=== PATIENT | female | born 1970 | race Caucasian/White ===

== ENCOUNTER 2020-05-08 12:44 | Observation (INO) | payer BC, OTHER ==
[~2020-05-08] VITALS: Ht 152.4 cm; Wt 71.2 kg
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
[2020-05-08] MEDS ORDERED: GLIPIZIDE5 MG PO (14:07)
[2020-05-08] MEDS ORDERED: SERTRALINE HCL100 MG PO (14:07)
[2020-05-08] MEDS ORDERED: BUSPIRONE HCL15 MG PO (14:07)
[2020-05-08] MEDS ORDERED: JANUVIA100 MG PO (14:07)
[2020-05-08] MEDS ORDERED: PROPRANOLOL HCL80 M1 (14:07)
[2020-05-08] MEDS ORDERED: ASPIRIN325 MG PO (14:07)
[2020-05-08] MEDS ORDERED: OMEPRAZOLE40 MG (14:07)
[2020-05-08] MEDS ORDERED: MULTI-VITAMIN1 EACH (14:07)
[2020-05-08] MEDS ORDERED: SODIUM CHLORIDE 0.9% 500ML 500 ML IV ONE (14:30)
[2020-05-08] MEDS ORDERED: IOPAMIDOL 370 MG/ML 200 ML INFUS..BTL INJ ONE (14:53)
[2020-05-08] MEDS ORDERED: SODIUM CHLORIDE 0.9% 100 ML ONE (14:53)
--- NOTE | 2020-05-08 15:43 | Diagnostic Imaging Report ---
EXAM: CT Chest WITH contrast- Pulmonary Embolism Protocol INDICATION: Shortness of breath and chest pain for several days COMPARISON: None TECHNIQUE: Chest was scanned utilizing a multidetector helical scanner from the lung apex through the level of the diaphragm after administration of IV contrast. Thin section reconstructions were obtained with special concentration on the pulmonary arteries. Coronal and sagittal reformations were obtained. Pulmonary embolism protocol was performed. IV CONTRAST: 100 cc of Isovue 370 RADIATION DOSE: Total DLP: 487 mGy*cm Dose modulation, iterative reconstruction, and/or weight based adjustment of the mA/kV was utilized to reduce the radiation dose to as low as reasonably achievable. COMPLICATIONS: None FINDINGS: LINES/ TUBES: None. PULMONARY ARTERIES: No filling defect is identified within the pulmonary arteries to the proximal subsegmental level. Main pulmonary artery measures 2.2 in diameter normal. LUNGS AND AIRWAYS: Negative for focal consolidation. No suspicious pulmonary nodule or mass is identified. Airways are normal. PLEURA: The pleural spaces are clear. HEART AND MEDIASTINUM: The thyroid gland is normal. No mediastinal, hilar or axillary lymphadenopathy. The heart is normal in size.. There is no pericardial effusion. Negative for right ventricular enlargement or bowing of the intervertebral interseptum. Thoracic aorta is of normal caliber. UPPER ABDOMEN: Gallbladder is surgically absent. BONES: Negative for acute osseous abnormality. Probable bone island is noted within a mid thoracic vertebral body. Moderate multilevel degenerative changes are noted. SOFT TISSUES: Unremarkable. IMPRESSION: 1. Negative for pulmonary or secondary signs of right heart strain. 2. Lungs are clear. Signed by: Deon Andino MD on 05/08/2020 3:40 PM
[2020-05-08] MEDS ORDERED: SODIUM CHLORIDE FLUSH 10 ML SYR INJ PRN (17:30)
[2020-05-08] MEDS ORDERED: ONDANSETRON HCL INJ 2MG/ML 2ML 2 MG/ML VIAL IV PRN (17:30)
[2020-05-08] MEDS ORDERED: ASPIRIN 81 MG CHEW TAB PO ONE (17:30)
--- OUTSIDE RECORDS SUMMARY | 2020-05-08 17:38 | XMS REPORT | Clinical Summary ---
Author Author [facility] Organization [facility] Address Unknown Phone Unavailable Care Team Providers Care Five Roll Refiner Batch Mixer Name Role Phone Lynnette Servin MD PCP Allergies Comments Active Allergy Reactions Severity Noted Date Severe diarrhea Amoxicillin-Pot Diarrhea 03/05/2019 Clavulanate Tongue itching Sulfamethoxazole-Trimetho Other (See 03/05/2019 prim Comments) Chest pain Morphine Shortness Of High 03/05/2019 Breath, Other (See Comments) Medications End Date Status Medication Sig Dispensed Refills Start Date Active atorvastatin (LIPITOR) 40 Take 40 mg by 0 MG tablet mouth daily. Active busPIRone (BUSPAR) 10 MG Take 10 mg by 0 tablet mouth 2 (two) times daily. Active estradiol (ESTRACE) 0.01 Place 2 g 0 % (0.1 mg/gram) vaginal vaginally cream daily. Active glipiZIDE (GLUCOTROL) 10 Take 10 mg by 0 MG tablet mouth 2 (two) times daily before meals. Active insulin detemir U-100 Inject 15 0 (LEVEMIR) 100 unit/mL (3 Units mL) InPn injection subcutaneousl y nightly. Active naltrexone (DEPADE) 50 mg Take 50 mg by 0 tablet mouth daily. Active omeprazole (PRILOSEC) 40 Take 40 mg by 0 MG capsule mouth 2 (two) times daily. Active ondansetron (ZOFRAN) 4 MG Take 4 mg by 0 tablet mouth 2 (two) times daily as needed for Nausea. Active pioglitazone (ACTOS) 15 Take 15 mg by 0 MG tablet mouth daily. Active propranolol (INDERAL LA) Take 80 mg by 0 80 MG 24 hr capsule mouth daily. Active sertraline (ZOLOFT) 50 MG Take 150 mg 0 tablet by mouth daily . Active sucralfate (CARAFATE) 1 Take 1 g by 0 gram tablet mouth as needed. Active traZODone (DESYREL) 100 Take 100 mg 0 MG tablet by mouth nightly. Active valACYclovir (VALTREX) Take 1,000 mg 0 1000 MG tablet by mouth as needed. Active LORazepam (ATIVAN) 0.5 MG Take 0.5 mg 0 tablet by mouth every 8 (eight) hours as needed for Anxiety. Active Problems Problem Noted Date Chest pain, unspecified type 08/23/2019 Encounters Care Team Description Date Type Specialty Karli Sandoval, INBOUND CALL CENTER AGENT, RPSGT 12/03/2019 Outside Orders Lynnette Servin MD Daytime somnolence 11/21/2019 Hospital Encounter 08/23/2019 Orders Only General Internal Me hector Mejia, MD Florencio Nassar Kimberly Ann, MD Chest pain, unspecified type (Primary Dx ); SOB (shortness of breath) 08/22/2019 Emergency Cardiology - 08/23/2019 08/22/2019 Travel Lynnette Servin MD Dysphagia, unspecified type (Primary Dx) 08/03/2019 Outside Orders Central Scheduling Lynnette Servin MD 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 07/02/2019 Hospital Radiology Encounter Lynnette Servin MD 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 Last Filed Vital Signs Time Taken Vital Sign Reading 08/23/2019 4:00 PM CAR REPAIR SUPERVISOR Blood Pressure 109/65 08/23/2019 4:00 PM CAR REPAIR SUPERVISOR Pulse 96 08/23/2019 4:00 PM CAR REPAIR SUPERVISOR Temperature 36.5 C (97.7 F) 08/23/2019 4:00 PM CAR REPAIR SUPERVISOR Respiratory Rate 18 08/23/2019 4:00 PM CAR REPAIR SUPERVISOR Oxygen Saturation 95% - Inhaled Oxygen - Concentration 08/23/2019 8:13 AM CAR REPAIR SUPERVISOR Weight 71.4 kg (157 lb 6.5 oz) 08/22/2019 8:37 PM CAR REPAIR SUPERVISOR Height 152.4 cm (5') 08/23/2019 8:13 AM CAR REPAIR SUPERVISOR Body Mass Index 30.74 Plan of Treatment Health Maintenance Due Date Last Done Comments BREAST CANCER SCREENING 1970 COLON CANCER SCREENING 1970 COLONOSCOPY CERVICAL CANCER SCREENING 1989 PAP ONLY (Age 21-65) INFLUENZA VACCINE (#1) 2020 06/10/2018 Procedures Comments Procedure Name Priority Date/Time Associated Diag nosis POLYSOMNOGRAPHY REPORT - 12/11/2019 SCAN 12:00 PM CDT UNATTENDED SLEEP STUDY Routine 11/21/2019 Daytime somnolence W/ANALYSIS 10:57 AM CAR REPAIR SUPERVISOR REPORT OF PROCEDURE - 08/24/2019 ENDOSCOPY SCAN 12:00 PM CAR REPAIR SUPERVISOR RHYTHM STRIP - SCAN 08/24/2019 12:00 PM CAR REPAIR SUPERVISOR REPORT OF PROCEDURE - 08/24/2019 ENDOSCOPY SCAN 11:20 AM CAR REPAIR SUPERVISOR ECHOCARDIOGRAM REPORT - 08/23/2019 SCAN 9:10 PM CAR REPAIR SUPERVISOR POCT-GLUCOSE METER Routine 08/23/2019 6:11 PM CAR REPAIR SUPERVISOR POCT-GLUCOSE METER Routine 08/23/2019 2:01 PM CAR REPAIR SUPERVISOR 2D ECHO W/ DOPPLER Routine 08/23/2019 (CW/PW/COLOR) 12:29 PM CAR REPAIR SUPERVISOR NM MYOCARDIAL PERFUSION Routine 08/23/2019 SPECT, PHARM(LEXISCAN) 12:21 PM CAR REPAIR SUPERVISOR TREADMILL Routine 08/23/2019 TOLERANCE(NON-NUCLEAR 9:49 AM CAR REPAIR SUPERVISOR TREADMILL) ECG 12-LEAD Routine 08/23/2019 9:34 AM CAR REPAIR SUPERVISOR Procedure Note - Interface, External Ris In - 08/23/2019 10:11 AM CAR REPAIR SUPERVISOR Ventricula r Rate 71 BPM Atrial Rate 71 BPM P-R Interval 160 ms QRS Duration 72 ms Q-T Interval 428 ms QTC Calculatio n(Bazett) 465 ms P [place] 54 degrees R [place] 9 degrees T [place] 41 degrees Normal sinus rhythm Low voltage QRS Cannot rule out Anterior infarct , age undetermin ed Abnormal ECG ECG 12-LEAD STAT 08/23/2019 9:34 AM CAR REPAIR SUPERVISOR POCT-GLUCOSE METER Routine 08/23/2019 8:10 AM CAR REPAIR SUPERVISOR TROPONIN I STAT 08/23/2019 1:36 AM CAR REPAIR SUPERVISOR POCT-GLUCOSE METER Routine 08/22/2019 11:27 [address] CHEST PE TEST DESIGN STAT 08/22/2019 6:21 PM CAR REPAIR SUPERVISOR ED ECG INTERPRETATION Routine 08/22/2019 5:00 PM CAR REPAIR SUPERVISOR CBC W/PLT COUNT & AUTO STAT 08/22/2019 DIFFERENTIAL 4:22 PM CAR REPAIR SUPERVISOR B-TYPE NATRIURETIC FACTOR STAT 08/22/2019 (BNP) 4:22 PM CAR REPAIR SUPERVISOR TROPONIN I STAT 08/22/2019 4:22 PM CAR REPAIR SUPERVISOR BASIC METABOLIC PANEL (7) STAT 08/22/2019 4:22 PM CAR REPAIR SUPERVISOR CBC W/PLT COUNT & AUTO STAT 08/22/2019 DIFFERENTIAL 4:22 PM CAR REPAIR SUPERVISOR POCT-GLUCOSE METER Routine 08/22/2019 4:20 PM CAR REPAIR SUPERVISOR ECG 12-LEAD Routine 08/22/2019 4:12 PM CAR REPAIR SUPERVISOR XR LUMBAR SPINE COMP WITH Routine 07/02/2019 Wind Energy Technician franklyn midline low back FLEX & EXT 3:18 PM CDT pain with bilateral sciatica XR SACRUM & COCCYX MIN 3 Routine 07/02/2019 Chron ic midline low back VIEWS 3:18 PM CDT pain with bilateral sciatica after 05/08/2019 Results * POLYSOMNOGRAPHY REPORT - SCAN (12/11/2019 12:00 PM CDT) Narrative Performed At This result has an attachment that is n ot available. * EKG-SCANNED (08/24/2019 12:00 PM CAR REPAIR SUPERVISOR) Only the most recent of 2 results within the time period is included. Narrative Performed At This result has an attachment that is n ot available. * RHYTHM STRIP - SCAN (08/24/2019 12:00 PM CAR REPAIR SUPERVISOR) Narrative Performed At This result has an attachment that is n ot available. * ECHOCARDIOGRAM REPORT - SCAN (08/23/2019 9:10 PM CAR REPAIR SUPERVISOR) Narrative Performed At This result has an attachment that is n ot available. * POC-Glucose meter (08/23/2019 6:11 PM CAR REPAIR SUPERVISOR) Only the most recent of 5 results within the time period is included. POC-Glucose Meter 287 (H)Comment: : Notified 70 - 110 mg/dL [facility] RN/MD: TESTED AT [address], [facility]: Lithograph Printer/Manager Talent Acquisition ID = [id number] for NIRMAL-SHOCK, TEASIA Specimen Blood Performing Organization Address City/State[facility] Ph one Number [place] [address] [facility] * 2D Echo W/Doppler(CW/PW/Color) (08/23/2019 12:29 PM CAR REPAIR SUPERVISOR) Ejection Fraction [facility] ECHO [facility]ART[facility] Specimen Narrative Performed At Transthoracic Echocardiography Report (TTE) [facility] ECH O HEARTLAB Demographics [facility] Patient NameSUZIE CARLOS Date of Study08/23/2019 VIRGIL Gender Female Visit [id number] Race Room [id number] Number Date of 1970 Physician VIRIDIANA Fuentes Age 48 year(s) SonographDavid Kraft [facility] Membership Manager Lexa Hamilton MD RDCS Physician Procedure Type of Study TTE procedure:2DECHO W DO PPLER(CW/PW/COLOR) (Routine) Indications:Shortness of breath. Clinical History HX PE, DM, TIA (2019), CAD Contrast Medium: Definity. Height: 60 inches Weight: 73.03 kg (161 lbs) BSA: 1.7 m^2 BMI: 31.44 kg/m^2 HR: 80 bpm BP: 124/69 mmHg Summary 1. The left ventricle is chamber size ( by vol index) is normal. No evidence of LV hypertrophy. All of the LV segments are hyperkinetic. LVEF by Gonsalez's method of disk assessment is increased (>70%). Grade 1 diastolic dysfunction (impaired relaxat ion and low-normal LA pressure). LA size is normal (16-34 ml/m2) . 2. The right ventricular chamber size a nd systolic function are within normal limits. RA size is normal. Estim ated peak systolic PA pressure is 20-25 mmHg . 3. No significant valvular abnormalitie s. Previous Study No prior studies available for comparis on. Signature Findings Technical Quality: Technically adequate exam. Left Ventricle LV endoc ardium is adequately visualized with IV ultrasound enhancing agent. The left ventricle is chamber size (by vol index) is normal (female - LVED vol - 29-61ml/m2). No evidence of LV hypertrophy. All of the LV segments are hyperkinetic . Global LV systolic function hyperdynamic . LVEF by Gonsalez's method of disk assessment is increased (>70%) . Increased (cardiac index 3.5-4.0 L/min/m2) cardiac output state at rest is noted. Grade 1 diastolic dysfunction (impaired relaxation and low-normal LA pressure). Left AtriumLA s ize is normal (16-34 ml/m2) . Right VentricleThe righ t ventricular chamber size and systolic function are within normal limits. Right Atrium RA siz e is normal. Aortic Valve Normal AoV structure and function. Mitral Valve Normal MV structure and function. Trace mitral regurgitation. Tricuspid ValveTV struc ture is normal. A trace of tricuspid regurgitation. Estimated peak systolic PA pressure is 20-25 mmHg . Peak systolic pressure may be underestimated; partial TR signal. Pulmonic Valve Normal P V structure and function by limited views and Doppler. Aorta Aortic root size (SInus of Valsalva diameter) is normal . PericardiumNo p ericardial effusion is visualized. IVC/SVC/PA/PV/PleuralThe estimated RA pressure by IVC dynamics 0-5mmHg . Chambers/Structures Left Atrium LA Volume: 30.08 ml LA Area: 12.42 cm^2 LA Vol. Index: 18 ml/m^2 Left Ventricle LVIDd: 4.59 cm LV Septum Diastolic: 0.67 cm LV PW Diastolic: 0.88 cm LVEDV Gonsalez's:63.26 ml LV Length: 6.64 cm LVESV Gonsalez's:15.57 ml LVEF Gonsalez's: 75.4 % LVEDVI: 37 ml/m^2 LVESVI: 9 ml/m^2 LVOT Diameter: 1.95 cm Aorta Ao Root S of Mariel.: 2.79 cm Doppler/Quantitative Measurements Mitral Valve MV Peak E-Wave: 0.65 m/s MV Peak A-Wave: 0.78 m/s E/A Ratio: 0.83 Peak Gradient: 1.67 mmHg Deceleration Time: 149.3 msec MV Efrain. Peak: Tissue Doppler E' Lateral Velocity: 0.09 m/s E/E': 7.08 Aortic Valve Peak Velocity: 1.38 m/s Mean Velocity: 0.97 m/s Peak Gradient: 7.6 mmHg Mean Gradient: 4.14 mmHg AV Area (continuity): 3 cm^2 AV VTI: 25.33 cm AV DVI: 1 LVOT Peak Velocity: 1.29 m/s Peak Gradient: 6.61 mmHg Mean Velocity: 0.89 m/s Mean Gradient: 3.53 mmHg LVOT Diameter: 1.95 cm LVOT VTI: 25.44 cm LVOT Area: 2.99 cm^2 LVOT SV:75.94 ml LVOT CO: 6.07 l/min LVOT CI: 3.57 l/min/m^2 Tricuspid Valve TR Velocity: 1.99 m/s TR Gradient: 15.84 mmHg Procedure Note Interface, External Ris In - 08/23/2019 2:39 PM CAR REPAIR SUPERVISOR Transthoracic Echocardiography Report (TTE) Demographics Patient Name SUZIE CARLOS Date of Study 08/23/2019 VIRGIL Gender Female Visit Number [id number] Race Room Number [id number] Number Date of 1970 Referring Physician VIRIDIANA Griggs Age 48 year(s) Lime Burner Buffy Kraft [facility] Membership Manager Mary Ann Garcia, Interpreting Pancho Calloway MD [facility] Physician Procedure Type of Study TTE procedure:2DECHO W DOPPLER(CW/PW/COLOR) (Routine) Indications:Shortness of breath. Clinical History HX PE, DM, TIA (2019), CAD Contrast Medium: Definity. Height: 60 inches Weight: 73.03 kg (161 lbs) BSA: 1.7 m^2 BMI: 31.44 kg/m^2 HR: 80 bpm BP: 124/69 mmHg Summary 1. The left ventricle is chamber size (by vol index) is normal. No evidence of LV hypertrophy. All of the LV segments are hyperkinetic. LVEF by Gonsalez's method of disk assessment is increased (>70%). Grade 1 diastolic dysfunction (impaired relaxation and low-normal LA pressure). LA size is normal (16-34 ml/m2) . 2. The right ventricular chamber size and systolic function are within normal limits. RA size is normal. Estimated peak systolic PA pressure is 20-25 mmHg . 3. No significant valvular abnormalities. Previous Study No prior studies available for comparison. Signature Findings Technical Quality: Technically adequate exam. Left Ventricle LV endocardium is adequately visualized with IV ultrasound enhancing agent. The left ventricle is chamber size (by vol index) is normal (female - LVED vol - 29-61ml/m2). No evidence of LV hypertrophy. All of the LV segments are hyperkinetic . Global LV systolic function hyperdynamic . LVEF by Gonsalez's method of disk assessment is increased (>70%) . Increased (cardiac index 3.5-4.0 L/min/m2) cardiac output state at rest is noted. Grade 1 diastolic dysfunction (impaired relaxation and low-normal LA pressure). Left Atrium LA size is normal (16-34 ml/m2) . Right Ventricle The right ventricular chamber size and systolic function are within normal limits. Right Atrium RA size is normal. Aortic Valve Normal AoV structure and function. Mitral Valve Normal MV structure and function. Trace mitral regurgitation. Tricuspid Valve TV structure is normal. A trace of tricuspid regurgitation. Estimated peak systolic PA pressure is 20-25 mmHg . Peak systolic pressure may be underestimated; partial TR signal. Pulmonic Valve Normal PV structure and function by limited views and Doppler. Aorta Aortic root size (SInus of Valsalva diameter) is normal . Pericardium No pericardial effusion is visualized. IVC/SVC/PA/PV/Pleural The estimated RA pressure by IVC dynamics 0-5mmHg . Chambers/Structures Left Atrium LA Volume: 30.08 ml LA Area: 12.42 cm^2 LA Vol. Index: 18 ml/m^2 Left Ventricle LVIDd: 4.59 cm LV Septum Diastolic: 0.67 cm LV PW Diastolic: 0.88 cm LVEDV Gonsalez's:63.26 ml LV Length: 6.64 cm LVESV Gonsalez's:15.57 ml LVEF Gonsalez's: 75.4 % LVEDVI: 37 ml/m^2 LVESVI: 9 ml/m^2 LVOT Diameter: 1.95 cm Aorta Ao Root S of Mariel.: 2.79 cm Doppler/Quantitative Measurements Mitral Valve MV Peak E-Wave: 0.65 m/s MV Peak A-Wave: 0.78 m/s E/A Ratio: 0.83 Peak Gradient: 1.67 mmHg Deceleration Time: 149.3 msec MV Efrain. Peak: Tissue Doppler E' Lateral Velocity: 0.09 m/s E/E': 7.08 Aortic Valve Peak Velocity: 1.38 m/s Mean Velocity: 0.97 m/s Peak Gradient: 7.6 mmHg Mean Gradient: 4.14 mmHg AV Area (continuity): 3 cm^2 AV VTI: 25.33 cm AV DVI: 1 LVOT Peak Velocity: 1.29 m/s Peak Gradient: 6.61 mmHg Mean Velocity: 0.89 m/s Mean Gradient: 3.53 mmHg LVOT Diameter: 1.95 cm LVOT VTI: 25.44 cm LVOT Area: 2.99 cm^2 LVOT SV:75.94 ml LVOT CO: 6.07 l/min LVOT CI: 3.57 l/min/m^2 Tricuspid Valve TR Velocity: 1.99 m/s TR Gradient: 15.84 mmHg Performing Organization Address City/State/Zipcode Ph one Number [facility] ECHO [facility] * NM myocardial perfusion SPECT, pharm(Lexiscan) (08/23/2019 12:21 PM CAR REPAIR SUPERVISOR) Specimen Narrative Performed At FINAL REPORT [employer] PROCEDURE:Rest/Stress MYOCA RDIAL PERFUSION SPECT with regadenoson\XA9\ CPT CODE:80883 INDICATION: Chest pain HISTORY:Cardiac ris k factors: Diabetes, hyperlipidemia, early family history of CAD. Other card iovascular history: No reported CAD. Recent cardiac symptoms: Shortness of breath, chest pain. Current cardiovascular-related me dications: Propranolol, Lipitor, aspirin. PROTOCOL:10.8 mCi of Tc-99m sestamibi was injected iv at rest, and SPECT (tomographic) images were obt ained. Also, 32.6 mCi of Tc-99m sestamibi was injected iv at exp ected peak pharmacologic effect, and gated SPECT images were obt ained. PRELIMINARY STRESS TEST DATA FROM NONIN VASIVE CARDIOLOGY: Pharmacologic stress was by 10-second i v infusion of 0.4 mg of regadenoson. Radiotracer was injected 3 0 seconds after start of stress. Heart rate was 75 beats/min at rest and 101 beats/min (59 % of MPHR) at tracer injection. BP was 10 3/72 mmHg at rest and 117/67 mmHg at tracer injection. Stress was st opped for predetermined endpoint. The patient experienced light headedness; treatment was not required. Preliminary ECG evaluation re vealed sinus rhythm at rest and was indeterminate due to pharmacolo gical stress. (Final ECG interpretation and other stress and mon itoring data are reported separately by Cardiology.) IMAGING FINDINGS:Study quality is good. Images obtained after rest and stress injections show normal LV activity. LV and RV volumes appear normal. Gated images obtained at rest after stress show normal LV wall motion and thickening. QGS LVEF is >70%. IMPRESSION: 1. Normal study.2. Appropriate pharmacologic stress. 3. Normal myocardial perfusion.4. N ormal resting LV function.5. Normal extracardiac tracer distribution .6. No prior studies available for comparison. Signed: Faivo Glover MD Report Verified Date/Time: 9 18:04:54 Reading Location: [address] Reading Room Procedure Note Interface, External Ris In - 09/05/2019 12:51 PM CAR REPAIR SUPERVISOR FINAL REPORT PROCEDURE: Rest/Stress MYOCARDIAL PERFUSION SPECT with regadenoson\XA9\ CPT CODE: 27154 INDICATION: Chest pain HISTORY: Cardiac risk factors: Diabetes, hyperlipidemia, early family history of CAD. Other cardiovascular history: No reported CAD. Recent cardiac symptoms: Shortness of breath, chest pain. Current cardiovascular-related medications: Propranolol, Lipitor, aspirin. PROTOCOL: 10.8 mCi of Tc-99m sestamibi was injected iv at rest, and SPECT (tomographic) images were obtained. Also, 32.6 mCi of Tc-99m sestamibi was injected iv at expected peak pharmacologic effect, and gated SPECT images were obtained. PRELIMINARY STRESS TEST DATA FROM NONINVASIVE CARDIOLOGY: Pharmacologic stress was by 10-second iv infusion of 0.4 mg of regadenoson. Radiotracer was injected 30 seconds after start of stress. Heart rate was 75 beats/min at rest and 101 beats/min (59 % of MPHR) at tracer injection. BP was 103/72 mmHg at rest and 117/67 mmHg at tracer injection. Stress was stopped for predetermined endpoint. The patient experienced lightheadedness; treatment was not required. Preliminary ECG evaluation revealed sinus rhythm at rest and was indeterminate due to pharmacological stress. (Final ECG interpretation and other stress and monitoring data are reported separately by Cardiology.) IMAGING FINDINGS: Study quality is good. Images obtained after rest and stress injections show normal LV activity. LV and RV volumes appear normal. Gated images obtained at rest after stress show normal LV wall motion and thickening. QGS LVEF is >70%. IMPRESSION: 1. Normal study. 2. Appropriate pharmacologic stress. 3. Normal myocardial perfusion. 4. Norm al resting LV function. 5. Normal extracardiac tracer distribution. 6. No prior studies available for comparison. Signed: Favio Glover MD Report Verified Date/Time: 08/23/2019 18:04:54 Reading Location: [address] [facility] Reading Room Performing Organization Address [facility] one Number GE RIS * Treadmill tolerance(Non-Nuclear Treadmill) (08/23/2019 9:49 AM CAR REPAIR SUPERVISOR) Specimen Narrative Performed At Protocol Name REGADENOSON GE MUSE Time In Exercise Phase 00:01:00 Max. Systolic BP 117 mmHg Max Diastolic BP 67 mmHg Max Heart Rate 101 BPM Max Predicted Heart Rate 170 BPM Reason For Termination Predetermined en d point Reason for Test Chest Pain Target HR Formula (220 - Age)*100% Arrhythmias none Resting ECG Normal sinus rhythm ST Changes No Significant Changes Overall Impression Indeterminate due to pharmacological stress Chest Pain 3/10 HR Response To Exercise appropriate BP Response To Exercise APPROPRIATE RES PONSE ASA LIPITOR Propanolol ATARAX Confirmed by fellow Micah Rivera [id number]) on 08/23/2019 11:12:07 AM Confirmed by MD BOBO JORGE ([id number]) o n 09/10/2019 12:41:32 PM Procedure Note Interface, External Ris In - 09/10/2019 12:41 PM CAR REPAIR SUPERVISOR Protocol Name REGADENOSON Time In Exercise Phase 00:01:00 Max. Systolic BP 117 mmHg Max Diastolic BP 67 mmHg Max Heart Rate 101 BPM Max Predicted Heart Rate 170 BPM Reason For Termination Predetermined end point Reason for Test Chest Pain Target HR Formula (220 - Age)*100% Arrhythmias none Resting ECG Normal sinus rhythm ST Changes No Significant Changes Overall Impression Indeterminate due to pharmacological stress Chest Pain 3/10 HR Response To Exercise appropriate BP Response To Exercise APPROPRIATE RESPONSE ASA LIPITOR Propanolol ATARAX Confirmed by fellow Micah Rivera ([id number]) on 08/23/2019 11:12:07 AM Confirmed by MD BOBO JORGE ([id number]) on 09/10/2019 12:41:32 PM Performing Organization Address [facility] Ph one Number GE MUSE * ECG 12 lead (08/23/2019 9:34 AM CAR REPAIR SUPERVISOR) Only the most recent of 2 results within the time period is included. Specimen Narrative Performed At Ventricular Rate 71 BPM GE MUSE Atrial Rate 71 BPM P-R Interval 160 ms QRS Duration 72 ms Q-T Interval 428 ms QTC Calculation(Bazett) 465 ms P [place] 54 degrees R [place] 9 degrees T [place] 41 degrees Normal sinus rhythm Low voltage QRS Confirmed by MD Coe Roberto ([id number]) on 08/23/2019 2:03:10 PM Procedure Note Interface, External Ris In - 08/23/2019 2:03 PM CAR REPAIR SUPERVISOR Ventricular Rate 71 BPM Atrial Rate 71 BPM P-R Interval 160 ms QRS Duration 72 ms Q-T Interval 428 ms QTC Calculation(Bazett) 465 ms P [place] 54 degrees R [place] 9 degrees T [place] 41 degrees Normal sinus rhythm Low voltage QRS Confirmed by MD Coe Roberto ([id number]) on 08/23/2019 2:03:10 PM Performing Organization Address [facility] one Number GE MUSE * Troponin I (08/23/2019 1:36 AM CAR REPAIR SUPERVISOR) Only the most recent of 2 results within the time period is included. Troponin I <0.01 0.00 - 0.03 ng/mL [facility] Specimen Blood Narrative Performed At Troponin I (TnI) levels must be interpreted in the co ntext of the presenting [facility] symptoms and the clinical findings. Elevated TnI leve ls indicate myocardial [facility] damage, but are not specific for ischem ic heart disease. Elevated TnI levels are seen in patients with other cardiac con ditions (including myocarditis and congestive heart failure), and slight T nI elevations occur in patients with other conditions, including sepsis, lisbeth al failure, acidosis, acute neurological disease, and persistent tachyarrhythmia . Performing Organization Address [facility] Ph one Number [place] [phone] [facility] * CT chest PE test design (08/22/2019 6:21 PM CAR REPAIR SUPERVISOR) Specimen Narrative Performed At FINAL REPORT Meedor RIS EXAM: CT Chest with intravenous contras t HISTORY: PE suspected, high pretest pro b SHORTNESS OF BREATH CHEST PAIN COMPARISON: None TECHNIQUE: CT of the chest WITH intrave nous contrast (pulmonary embolism protocol). Coronal and sagitta l reformations were obtained. Scan was performed during the pulmonary arterial phase. DOSE REDUCTION: The examination was per formed according to the departmental dose-optimization program, which includes automated exposure control, adjustment of the mA and/or kV according to patient size and/or use of iterative reconstruc tion technique. FINDINGS: Limited exam due to contrast bolus saloni ng/streak artifact. LINES and TUBES: None. PULMONARY ARTERIES: Proximal to the bif urcation of the main pulmonary artery, the main pulmonary artery is 2. 6 cm in diameter.No filling defects within the main through proxima l segmental pulmonary arteries to suggest pulmonary embolus. LUNGS AND AIRWAYS: Right lower lobe 0.3 cm nodule. Scattered atelectasis. PLEURA: The pleural spaces are clear. HEART AND MEDIASTINUM: The visualized t hyroid gland is normal. No significant mediastinal, hilar, or axil lars lymphadenopathy. The heart and pericardium are within normal limits. SOFT TISSUES AND BONES: Unremarkable. UPPER ABDOMEN: Right upper quadrant jaci gical clips. IMPRESSION: 1. No pulmonary embolus within the main through proximal segmental pulmonary arteries. 2. Right lower lobe 0.3 cm lung nodule. Patients at low risk for lung cancer: N o routine follow-up Patients at high risk for lung cancer: Optional CT at 12 months (consider follow-up if suspicious morph ology and/or located in upper lobe, otherwise no follow-up).If st able at 12 months, no further follow-up. Signed: Joseph Dai MD Report Verified Date/Time: 9 19:01:53 Reading Location: [address] Consult Reading Room Procedure Note Interface, External Ris In - 08/22/2019 7:04 PM CAR REPAIR SUPERVISOR FINAL REPORT EXAM: CT Chest with intravenous contrast HISTORY: PE suspected, high pretest prob SHORTNESS OF BREATH CHEST PAIN COMPARISON: None TECHNIQUE: CT of the chest WITH intravenous contrast (pulmonary embolism protocol). Coronal and sagittal reformations were obtained. Scan was performed during the pulmonary arterial phase. DOSE REDUCTION: The examination was performed according to the departmental dose-optimization program, which includes automated exposure control, adjustment of the mA and/or kV according to patient size and/or use of iterative reconstruction technique. FINDINGS: Limited exam due to contrast bolus timing/streak artifact. LINES and TUBES: None. PULMONARY ARTERIES: Proximal to the bifurcation of the main pulmonary artery, the main pulmonary artery is 2.6 cm in diameter. No filling defects within the main through proximal segmental pulmonary arteries to suggest pulmonary embolus. LUNGS AND AIRWAYS: Right lower lobe 0.3 cm nodule. Scattered atelectasis. PLEURA: The pleural spaces are clear. HEART AND MEDIASTINUM: The visualized thyroid gland is normal. No significant mediastinal, hilar, or axillary lymphadenopathy. The heart and pericardium are within normal limits. SOFT TISSUES AND BONES: Unremarkable. UPPER ABDOMEN: Right upper quadrant surgical clips. IMPRESSION: 1. No pulmonary embolus within the main through proximal segmental pulmonary arteries. 2. Right lower lobe 0.3 cm lung nodule. Patients at low risk for lung cancer: No routine follow-up Patients at high risk for lung cancer: Optional CT at 12 months (consider follow-up if suspicious morpho logy and/or located in upper lobe, otherwise no follow-up). If stable at 12 months, no further follow-up. Signed: Joseph Dai MD Report Verified Date/Time: 08/22/2019 19:01:53 Reading Location: [address] Consult Reading Room Performing Organization Address City/State/Zipcode Ph one Number [facility] * ECG/EKG Interpretation (08/22/2019 5:00 PM CAR REPAIR SUPERVISOR) Narrative Performed At Cody Patterson MD 08/22/20196 :35 PM ECG/EKG Interpretation Date/Time: 08/22/2019 4:12 PM Performed by: Cody Patterson MD Authorized by: Cody Patterson MD The ECG was interpreted by ED physician . This ECG was compared with previous ECG(s).The ECG is interpreted as sinus rhythm. Rate is normal rate. Conduction: conduction normal. ST segments normal. T waves abnormal. Other findings: no other findings. Clin ical Impression: normal ECGECG reviewed and does not meet STEMI criter ia. Patient tolerance: Patient tolerated the procedure well with no im mediate complications * CBC with platelet count + automated diff (08/22/2019 4:22 PM CAR REPAIR SUPERVISOR) WBC 9.4 3.5 - 10.5 K/L [facility] RBC 4.77 3.93 - 5.22 M/L [facility] Hemoglobin 14.6 11.2 - 15.7 GM/DL [facility] Hematocrit 43.6 34.1 - 44.9 % [facility] MCV 91.4 79.4 - 94.8 fL [facility] MCH 30.6 25.6 - 32.2 pg [facility] MCHC 33.5 32.2 - 35.5 GM/DL [facility] RDW 12.4 11.7 - 14.4 % [facility] Platelets 324 150 - 450 K/CU MM [facility] MPV 10.0 9.4 - 12.3 fL [facility] % Neutros 65 % [facility] % Lymphs 23 % [facility] % Monos 8 % [facility] % Eos 3 % [facility] % Baso 1 % [facility] # Neutros 6.09 1.56 - 6.13 K/L [facility] # Lymphs 2.19 1.18 - 3.74 K/L [facility] # Monos 0.76 (H) 0.24 - 0.36 K/L [facility] # Eos 0.25 0.04 - 0.36 K/L [facility] # Baso 0.06 0.01 - 0.08 K/L [facility] Immature 0 0 - 1 % [facility] Granulocytes-Relative - [facility] Specimen Blood Performing Organization Address City/State/Zipcode Ph one Number [facility] - [address], [place] [address] [place] * B-type Natriuretic Factor (BNP) (08/22/2019 4:22 PM CAR REPAIR SUPERVISOR) BNP 27 0 - 100 pg/mL [facility] Specimen Blood Performing Organization Address [facility] one Number [facility] - [address] [place] [address] 0 [place] * Basic Metabolic Panel (08/22/2019 4:22 PM CAR REPAIR SUPERVISOR) Sodium 135 (L) 136 - 145 meq/L [facility] Potassium 3.4 (L)Comment: Specimen 3.5 - 5.1 meq/L [facility] slightly hemolyzed - [place] Chloride 99 98 - 107 meq/L [facility] CO2 28 22 - 29 meq/L [facility] BUN 7 7 - 21 mg/dL [facility] Creatinine 0.70Comment: Specimen slightly 0.57 - 1.25 mg/ dL [facility] hemolyzed - [place] Glucose 240 (H) 70 - 105 mg/dL [facility] Calcium 8.8 8.4 - 10.2 mg/dL [facility] [place] EGFR 89Comment: ESTIMATED GFR IS mL/min/1.73 sq m [facility] NOT ACCURATE CREATININE - [place] [facility] CLEARANCE IN PREDICTING GLOMERULAR FILTRATION RATE. ESTIMATED GFR IS NOT APPLICABLE FOR DIALYSIS PATIENTS. Specimen Blood Performing Organization Address [facility] one Number [place] [phone] [place] * XR sacrum and coccyx 3 views min (07/02/2019 3:18 PM CDT) Specimen Narrative Performed At FINAL REPORT [facility] Exam:Lumbar spine AP lateral obliqu e flexion extension and sacrum two views History:Pain Comparison: None. Findings: No fracture or malalignment. Multilevel degenerative endplate change throughout the lumbar s pine without significant narrowing. Facet arthrosis L4-5 L5-S1. No abnormal soft tissue calcification or soft tissue defect. Impression: No acute osseous abnormality Mild multilevel spondylosis and lower l umbar facet arthrosis Signed: Domenico Child MD Report Verified Date/Time: 9 15:48:50 Reading Location: [facility] Rad Reading Ro om 1 - B01.627 Procedure Note Interface, External Ris In - 07/02/2019 3:51 PM CDT FINAL REPORT Exam: Lumbar spine AP lateral oblique flexion extension and sacrum two views History: Pain Comparison: None. Findings: No fracture or malalignment. Multilevel degenerative endplate change throughout the lumbar spine without significant narrowing. Facet arthrosis L4-5 L5-S1. No abnormal soft tissue calcification or soft tissue defect. Impression: No acute osseous abnormality Mild multilevel spondylosis and lower lumbar facet arthrosis Signed: Domenico Child MD Report Verified Date/Time: 07/02/2019 15:48:50 Reading Location: [facility] Reading Room [address] [place] [address] Performing Organization Address City/State/Zipcode Ph one Number [facility] * XR lumbar spine comp with flex & ext (07/02/2019 3:18 PM CDT) Specimen Narrative Performed At FINAL REPORT [facility] Exam:Lumbar spine AP lateral obliqu e flexion extension and sacrum two views History:Pain Comparison: None. Findings: No fracture or malalignment. Multilevel degenerative endplate change throughout the lumbar s pine without significant narrowing. Facet arthrosis L4-5 L5-S1. No abnormal soft tissue calcification or soft tissue defect. Impression: No acute osseous abnormality Mild multilevel spondylosis and lower l umbar facet arthrosis Signed: Domenico Child MD Report Verified Date/Time: 9 15:48:50 Reading Location: [facility] [employer] Reading Ro om 1 - B01.627 Procedure Note Interface, External Ris In - 07/02/2019 3:51 PM CDT FINAL REPORT Exam: Lumbar spine AP lateral oblique flexion extension and sacrum two views History: Pain Comparison: None. Findings: No fracture or malalignment. Multilevel degenerative endplate change throughout the lumbar spine without significant narrowing. Facet arthrosis L4-5 L5-S1. No abnormal soft tissue calcification or soft tissue defect. Impression: No acute osseous abnormality Mild multilevel spondylosis and lower lumbar facet arthrosis Signed: Domenico Child MD Report Verified Date/Time: 07/02/2019 15:48:50 Reading Location: [facility] Reading Room [address] [place] [address] Performing Organization Address City/State/Zipcode Ph one Number [facility] after 05/08/2019 Insurance Payer Benefit Subscriber ID Type Phone Address Plan / Group [employer] - [employer] CARE [employer] xxxxxxxxxxx HMO/POS HMO/POS/OP EN ACCESS [id number]
--- OUTSIDE RECORDS SUMMARY | 2020-05-08 17:39 | XMS REPORT | Summary of Care ---
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; [address] [place] [address] Allergies Comments Active Allergy Reactions Severity Noted Date diarrhea Amoxicillin-Pot High 06/30/2018 Clavulanate Tongue itching Bactrim Ds Medium 06/30/2018 ONLY WITH GENERIC FLUCONAZOLE with itching and rash Fluconazole 06/12/2019 Chest pain Opioid Analgesics High 06/30/2018 Tongue itching Sulfamethoxazole-Trimetho 03/05/2019 prim documented as of this encounter (statuses as of 10/22/2019) Medications End Date Status Medication Sig Dispensed Refills Start Date Active pioglitazone (ACTOS) 30 Take 1 Tab by 90 Tab 3 MG tabletIndications: mouth daily. 9 Type 2 diabetes mellitus with hyperglycemia, with long-term current use of insulin (HCCode) Additional Information Patient not taking. Reason: Discontinued by other provider, Reported on 08/28/2019 9:34 AM Active Insulin Pen Needle (BD Inject 200 Each 11 PEN NEEDLE GLEN U/F) 32G insulin 4 9 X 4 MM MISC times a day Active atorvastatin (LIPITOR) 40 Take 1 Tab by 90 Tab 3 MG tablet mouth daily. 9 Active glucose monitoring kit 1 Device. 0 12/14/ 01 (FREESTYLE) monitoring 9 kit Active ketoconazole (NIZORAL) 2 Apply to 120 mL 5 0 % shampooIndications: scalp to wash 9 Telogen effluvium, twice a week Seborrheic dermatitis as needed Active propranolol (INDERAL LA) Take 1 Cap by 90 Cap 3 80 MG SR mouth daily. 9 capsuleIndications: Other migraine without status migrainosus, not intractable Active gabapentin (NEURONTIN) Take 2 Caps 180 Cap 1 300 MG by mouth at 9 capsuleIndications: bedtime. Chronic midline low back pain without sciatica Active busPIRone (BUSPAR) 10 MG Take 1 Tab by 270 Tab 1 tabletIndications: mouth every 9 Depression, unspecified morning AND 2 depression type Tabs nightly. Active omeprazole (PRILOSEC) 40 Take 1 Cap by 90 Cap 3 MG capsuleIndications: mouth daily. 9 Gastroesophageal reflux May disease without substitute esophagitis formulary preferred, generic, brand, or alternative. Active clobetasol (TEMOVATE) Mix in 1:1 1 Tube 1 05/21 0.05 % creamIndications: with vaseline 9 Chronic urethritis to dilute and apply affected areas. Avoid the face, skin folds. Active Clotrimazole 1 % Apply 1 Tube 6 OINTIndications: Vaginal topically to 9 itching, Chronic feet and urethritis between toes twice daily for 2-4 weeks Active Sitagliptin Phosphate 100 Take 100 mg 90 Each 3 MG TABSIndications: Type by mouth 9 2 diabetes mellitus with daily. complication, without long-term current use of insulin (HCCode) Active albuterol 108 (90 base) Inhale 1-2 1 Inhaler 5 mcg/act Puffs by 9 inhalerIndications: mouth every 4 Reactive airway disease hours as without complication, needed for unspecified asthma Wheezing. May severity, unspecified substitute whether persistent formulary preferred, generic, brand, or alternative. Active Spacer/Aero-Holding Dispense one, 1 Each 0 08/19 Chambers (E-Z SPACER) use daily 9 DEVIIndications: Reactive airway disease without complication, unspecified asthma severity, unspecified whether persistent Active lorazepam (ATIVAN) 0.5 MG Take 1 Tab by 15 Tab 0 tablet mouth daily 9 as needed for Anxiety. Active meclizine (ANTIVERT) 12.5 Take 1 Tab by 30 Tab 0 MG tablet mouth 3 times 9 daily as needed. Active trazodone (DESYREL) 50 MG TAKE 1 TO 2 60 Tab 0 tablet TABLETS BY 0 MOUTH NIGHTLY NEEDED FOR INSOMNIA. Active Insulin Detemir (LEVEMIR Inject 15 6 Pen 3 0 FLEXTOUCH) 100 UNIT/ML Units into 0 SOPNIndications: Type 2 the skin diabetes mellitus with nightly. hyperglycemia, with long-term current use of insulin (HCCode) Active Insulin Aspart (NOVOLOG Inject 5 6 Pen 3 FLEXPEN) 100 UNIT/ML units three 0 SOPNIndications: Type 2 times a day diabetes mellitus with before each hyperglycemia, with meal per long-term current use of scale insulin (HCCode) provided Active glipiZIDE (GLUCOTROL) 10 Take 1 Tab by 180 Tab 3 MG tabletIndications: mouth two 0 Type 2 diabetes mellitus times daily. with hyperglycemia, with long-term current use of insulin (HCCode) Active fluconazole (DIFLUCAN) Take 1 Tab by 1 Tab 3 0 150 MG tabletIndications: mouth daily. 0 Christie vaginitis Active montelukast (SINGULAIR) Take 1 Tab by 90 Tab 3 10 MG tablet mouth daily. 0 Active famotidine (PEPCID) 40 MG Take 1 Tab by 30 Tab 1 tabletIndications: mouth every 0 Gastroesophageal reflux evening. disease, esophagitis presence not specified Active Diclofenac Sodium 1 % Apply 2-4 1 Tube 12 09/20 GELIndications: CMC gram to 0 arthritis, affected area Osteoarthritis, up to 4 times unspecified daily as osteoarthritis type, needed for unspecified site pain 10/17/2019 Discontinued (Reorder) sertraline (ZOLOFT) 100 Take 1.5 Tabs 45 Tab 2 MG tablet by mouth 9 daily. 10/14/2019 oseltamivir (TAMIFLU) 75 Take 1 Cap by 10 Cap 0 MG capsule mouth two 0 times daily for 5 days. Additional Information Patient not taking. Reason: PRN Med, Reported on 10/12/2019 5:09 PM documented as of this encounter (statuses as of 10/22/2019) Active Problems Problem Noted Date TIA (transient ischemic attack) 05/15/2019 Last Assessment & Plan: - left side facial numbness, chest pain unresponsive to lorazepam - at hospital had dysphasia - had 170/110 at the ER - had echo, was on tele, MRI/MRA, CT - on aspirin 81 mg daily - on atorvastatin 40 mg - need repeat L DL, last 129s GERD (gastroesophageal reflux disease) 05/15/2019 Last Assessment & Plan: GERD+PUD improved - off sucralfate, only taking omeprazol e PRN every few days - will trial 20 mg tablets with goal of weaning to H2 b locker - had to take a second dose Shortness of breath 05/15/2019 Type 2 diabetes mellitus with complication, with long -term current use of 01/02/2019 insulin (HCCode) Last Assessment & Plan: Taking glipizide 10 mg BID, Levemir 15 units + Aspart 5 units TID, Actos 30 mg, januvia 100 mg daily - SGLT2i cause yeast infections, GLP ag onists caused pancreatitis - like symptoms - Metformin 500 mg XR caused GI symptom s - BGs: - Fasting/AM: 200s, average 230s - Eye Exam: Due - Foot Exam: UTD - Microalbumin/HAYLEE/ARB: UTD in 12/2018 - Neuropathy - managed on gabapentin 30 0 mg and elavil 50 mg qHS - Denies any hypoglycemic symptoms or n umbers on fingerstick Palpitation 01/02/2019 Migraine 01/02/2019 Mild episode of recurrent major depressive disorder ( HCCode) 01/02/2019 Last Assessment & Plan: - has not been on wellbutrin for a week and a little more calm, might be causing anxiety, only taking zoloft 50 mg. Will continue for now. Insomnia 01/02/2019 Fatty liver disease, nonalcoholic Pulmonary embolism (HCCode) Overview: in setting of gallbladder surgery, prev iously on eliquis, now off documented as of this encounter (statuses as of 10/22/2019) Immunizations Name Administration Dates Next Due Influenza (whole) 06/10/2018 documented as of this encounter Social History Date Tobacco Use Types Packs/Day Years Used Never Smoker Smokeless Tobacco: Never Used Drinks/Week oz/Week Comments Alcohol Use socially 1/week Yes Alcohol Habits Answer Date Recorded How often do you have a drink containing alcohol? Monthly or less 12/14/2018 How many drinks containing alcohol do you have on No t asked a typical day when you are drinking? How often do you have six or more drinks on one Not asked occasion? Sex Assigned at Date Recorded Female 09/25/2019 6:19 AM [employer]EL[employer]PERVIS[employer] Industry Job Start Date Occupation Not on file Not on file Not on file Travel End Travel History Travel Start No recent travel history available. documented as of this encounter Last Filed Vital Signs Reading Time Taken Comments Vital Sign 98/60 10/12/2019 5:08 PM [employer] Blood Pressure 84 10/12/2019 5:08 PM [employer] Pulse 36.9 C (98.5 F) 10/12/2019 5:08 PM [employer]PER[employer] Temperature - - Respiratory Rate 98% 10/12/2019 5:08 PM [employer]EL[employer] SUPERVISOR Oxygen Saturation - - Inhaled Oxygen Concentration 70.3 kg (155 lb) 10/12/2019 5:08 PM [employer]EL[employer] SUPERVISOR Weight 152.4 cm (5') 10/12/2019 5:08 PM [employer]EL[employer] SUPERVISOR Height 30.27 10/12/2019 5:08 PM [employer]PER[employer] Body Mass Index documented in this encounter Progress Notes * Nubia Banks MA - 10/12/2019 5:23 PM [employer]EL[employer] SUPERVISOR CC: Chief Complaint Patient presents with Letter for School/Work HISTORY OF PRESENT ILLNESS: Bhupinder Carlos is a 48 y.o. year old female who presents for following ata rns: HPI # Vertigo- continued control # Dizziness - having persistent Discomfort and dizziness, still polyuric/polydipsic and has not been checking sugars - every day, happening with rest, position changes and head position changes and even when not moving head - no ear pain, but having some pressure in head - tried meclizine 12.5 mg and worked x 2 but it just makes her sleepy now and quezada s not been working INTERVAL: - still having some issues but not as bad # Diabetes Mellitus, uncontrolled - Taking januvia 100 mg, glipzide 10 mg BID, Levemir 16 qPM, taking aspart PRN b ut not as regularly as she should, not started on acarbose yet - BGs: - Fasting/AM: now in 200s # ? TIA # Trouble speaking- controlled with 325 asprin - with slurring episodes x2 and worried that she had two more TIAs - on ASA 81 mg - we still have not gotten her outside medical records from [place] INTERVAL: - pending neuro eval # Cough - consistent with some relief with inhaler INTERVAL: - continue symptoms nightly - taking singulair and zyrtec and nasal sprays - sometimes wonders if it is GERD taking omperazole 40 mg # Right Thumb pain - persistent INTERVAL: - continued issue but monitor # Lower back Pain with Left Sided Sciatica - taking a gabapentin and flexeril Son has Flu B. REVIEW OF SYSTEMS Review of Systems Except as above in HPI, otherwise relevant 10 point ROS reviewed and negative. PAST MEDICAL HISTORY Past Medical History: Diagnosis Date Anxiety Depression DM2 (diabetes mellitus, type 2) (HCCode) Dyslipidemia Fatty liver disease, nonalcoholic Pulmonary embolism (HCCode) in setting of gallbladder surgery, previously on eliquis, now off TIA (transient ischemic attack) PAST SURGICAL HISTORY Past Surgical History: Procedure Laterality Date HX CARDIAC CATHERIZATION 2014 normal HX CHOLECYSTECTOMY HX COLONOSCOPY HX ENDOMETRIAL ABLATION HX ENDOSCOPY HX GALLBLADDER REMOVAL HX LIVER BIOPSY HX TONSILLECTOMY MEDICATIONS Current Outpatient Medications on File Prior to Visit Medication Sig Dispense Refill albuterol 108 (90 base) mcg/act inhaler Inhale 1-2 Puffs by mouth every 4 ho urs as needed for Wheezing. May substitute formulary preferred, generic, brand, or alternative. 1 Inhaler 5 atorvastatin (LIPITOR) 40 MG tablet Take 1 Tab by mouth daily. 90 Tab 3 busPIRone (BUSPAR) 10 MG tablet Take 1 Tab by mouth every morning AND 2 Tabs nightly. 270 Tab 1 clobetasol (TEMOVATE) 0.05 % cream Mix in 1:1 with vaseline to dilute and ap ply affected areas. Avoid the face, skin folds. 1 Tube 1 Clotrimazole 1 % OINT Apply topically to feet and between toes twice daily f or 2-4 weeks 1 Tube 6 fluconazole (DIFLUCAN) 150 MG tablet Take 1 Tab by mouth daily. 1 Tab 3 gabapentin (NEURONTIN) 300 MG capsule Take 2 Caps by mouth at bedtime. 180 C ap 1 glipiZIDE (GLUCOTROL) 10 MG tablet Take 1 Tab by mouth two times daily. 180 Tab 3 glucose monitoring kit (FREESTYLE) monitoring kit 1 Device. Insulin Aspart (NOVOLOG FLEXPEN) 100 UNIT/ML SOPN Inject 5 units three times a day before each meal per scale provided 6 Pen 3 Insulin Detemir (LEVEMIR FLEXTOUCH) 100 UNIT/ML SOPN Inject 15 Units into th e skin nightly. 6 Pen 3 Insulin Pen Needle (BD PEN NEEDLE GLEN U/F) 32G X 4 MM MISC Inject insulin 4 times a day 200 Each 11 ketoconazole (NIZORAL) 2 % shampoo Apply to scalp to wash twice a week as ne eded 120 mL 5 lorazepam (ATIVAN) 0.5 MG tablet Take 1 Tab by mouth daily as needed for Anx iety. 15 Tab 0 meclizine (ANTIVERT) 12.5 MG tablet Take 1 Tab by mouth 3 times daily as nee ded. 30 Tab 0 montelukast (SINGULAIR) 10 MG tablet Take 1 Tab by mouth daily. 90 Tab 3 omeprazole (PRILOSEC) 40 MG capsule Take 1 Cap by mouth daily. May substitut e formulary preferred, generic, brand, or alternative. 90 Cap 3 oseltamivir (TAMIFLU) 75 MG capsule Take 1 Cap by mouth two times daily for 5 days. (Patient not taking: Reported on 10/12/2019) 10 Cap 0 pioglitazone (ACTOS) 30 MG tablet Take 1 Tab by mouth daily. (Patient not ta jesika: Reported on 08/28/2019) 90 Tab 3 propranolol (INDERAL LA) 80 MG SR capsule Take 1 Cap by mouth daily. 90 Cap 3 sertraline (ZOLOFT) 100 MG tablet Take 1.5 Tabs by mouth daily. 45 Tab 2 Sitagliptin Phosphate 100 MG TABS Take 100 mg by mouth daily. 90 Each 3 Spacer/Aero-Holding Chambers (E-Z SPACER) JAYLEN Dispense one, use daily 1 Eac h 0 trazodone (DESYREL) 50 MG tablet TAKE 1 TO 2 TABLETS BY MOUTH NIGHTLY NEE DED FOR INSOMNIA. 60 Tab 0 No current facility-administered medications on file prior to visit. ALLERGIES Allergies as of 10/12/2019 - Reviewed 10/12/2019 Allergen Reaction Noted Augmentin [amoxicillin-pot clavulanate] 06/30/2018 Morphine and related [opioid analgesics] 06/30/2018 Bactrim ds 06/30/2018 Fluconazole 06/12/2019 Sulfamethoxazole-trimethoprim 03/05/2019 FAMILY HISTORY Family History Problem Relation Name Age of Onset Hypertension Mother Diabetes Type II Father Cancer Father liver cancer Heart Attack Father 4v CABG Hypercholesterolemia Father Diabetes Type II Paternal Grandmother Breast Cancer Other grandaunt Endometrial Cancer Maternal Aunt SOCIAL HISTORY Social History Tobacco Use Smoking status: Never Smoker Smokeless tobacco: Never Used Substance Use Topics Alcohol use: Yes Frequency: Monthly or less Comment: socially 1/week Drug use: No PHYSICAL EXAM VS : Blood pressure 98/60, pulse 84, temperature 98.5 F (36.9 C), temperatur e source Oral, height 5' (1.524 m), weight 155 lb (70.3 kg), SpO2 98 %. Body mas s index is 30.27 kg/m. Physical Exam Constitutional: She is oriented to person, place, and time and well-developed, w ell-nourished, and in no distress. HENT: Head: Normocephalic and atraumatic. Right Ear: External ear normal. Left Ear: External ear normal. Mouth/Throat: Oropharynx is clear and moist. Bilateral nasal turbinates swollen/inflamed. Posterior oropharynx with irritatio n and cobblestoning. Bilateral TMs with irritation and pressure but without puru lence and other s/s of otitis. Eyes: Conjunctivae are normal. No scleral icterus. Neck: Neck supple. Cardiovascular: Normal rate, regular rhythm, normal heart sounds and intact dist al pulses. No murmur heard. Pulmonary/Chest: Effort normal and breath sounds normal. No respiratory distress . She has no wheezes. She has no rales. Abdominal: Soft. Bowel sounds are normal. She exhibits no distension. There is n o abdominal tenderness. There is no rebound. Musculoskeletal: General: No tenderness or edema. Lymphadenopathy: She has no cervical adenopathy. Neurological: She is alert and oriented to person, place, and time. Skin: Skin is warm and dry. Psychiatric: Affect and judgment normal. ADDITIONAL DATA Labs and Xrays were reviewed. Outside medical records including labs and imaging are reviewed and incorporated into HPI, assessment and plan. IMPRESSION AND PLAN Bhupinder was seen today for letter for school/work. Diagnoses and all orders for this visit: Gastroesophageal reflux disease, esophagitis presence not specified - famotidine (PEPCID) 40 MG tablet; Take 1 Tab by mouth every evening. CMC arthritis - Diclofenac Sodium 1 % GEL; Apply 2-4 gram to affected area up to 4 times d aily as needed for pain Osteoarthritis, unspecified osteoarthritis type, unspecified site - Diclofenac Sodium 1 % GEL; Apply 2-4 gram to affected area up to 4 times d aily as needed for pain DM2 - continue to titrate to levemir 20 units gradually and watching for hypoglycemi a Risks, benefits, and common side effects of all new medications discussed and [place] given opportunity to ask any questions or concerns. They were answered to patient's satisfaction. RTC in 1 week This visit encounter was performed with the assistance of dawit Curran od. Lynnette Servin MD was present throughout encounter and performed full history and exam and performed all medical decision making. Lynnette Servin MD Internal Medicine [facility] [employer] E[employer]ELING SUPERVISOR documented in this encounter Plan of Treatment Care Team Description Date Type Specialty Lynnette Servin MD [address] [place] [address] [phone] 10/29/2019 Office Visit General Internal Me Miguel Byrne MD [address] [place] [address] [phone] 11/02/2019 Confidential Psychiatry Rajinder Mccullough MD [address] [place] [address] [phone] 11/07/2019 Office Visit Dermatology Ev Richardson MD [address] [place] [address] [phone] 01/02/2020 Office Visit [facility] Health Maintenance Due Date Last Done Comments COLON CANCER SCREENIN1968 COLONOSCOPY MAMMOGRAM ANNUAL 1968 TETANUS SHOT (ADULT) 1983 ANNUAL DIABETIC 1986 RETINOPATHY SCREENING HIV SCREENING 1986 ANNUAL DIABETIC FOOT EXAM 12/15/2019 12/14/2018 A1C TESTING EVERY 6 02/29/2020 08/30/2019, 2018, 12/14/2018 MONTHS BMI FOLLOW UP PLAN 08/13/2020 08/13/2019 CERVICAL CANCER SCREENING 03/08/2022 03/08/2019, 10/11/2017 3 YEAR FOLLOW UP FLU VACCINE > 6 MONTHS Completed 07/13/2019, documented as of this encounter Results Not on filedocumented in this encounter Visit Diagnoses Diagnosis Gastroesophageal reflux disease, esopha gitis presence not specified - Primary CMC arthritis Unspecified arthropathy, hand Osteoarthritis, unspecified osteoarthri tis type, unspecified site documented in this encounter Insurance Type Payer Benefit Subscriber ID Effective Phone Address Plan / Dates Group [facility] xxxxxxxxxxx 2019-P [address] [place] [id number] [place]ESS - [place] [phone] [id number] documented as of this encounter
--- OUTSIDE RECORDS SUMMARY | 2020-05-08 17:39 | XMS REPORT | Summary of Care ---
Author Author [facility] Organization [facility] Address Unknown Phone Unavailable Care Team Providers Care Energy Manager Name Role Phone Lynnette Servin MD PCP Reason for Visit * Reason Comments Dizziness Blood Sugar Problem Encounter Details Care Team Description Date Type Department Lynnette Servin MD [address] [place], [place] [id number] Dizziness; Blood Sugar Problem 10/29/2019 Office Visit [facility] General Internal Medicine [address] [facility]; [address] [place] [address] Allergies Comments Active Allergy Reactions Severity Noted Date diarrhea Amoxicillin-Pot High 06/30/2018 Clavulanate Tongue itching Bactrim Ds Medium 06/30/2018 ONLY WITH GENERIC FLUCONAZOLE with itching and rash Fluconazole 06/12/2019 Chest pain Opioid Analgesics High 06/30/2018 Tongue itching Sulfamethoxazole-Trimetho 03/05/2019 prim documented as of this encounter (statuses as of 11/18/2019) Medications End Date Status Medication Sig Dispensed Refills Start Date Active Insulin Pen Needle (BD Inject 200 Each 11 PEN NEEDLE GLEN U/F) 32G insulin 4 9 X 4 MM MISC times a day Active atorvastatin (LIPITOR) 40 Take 1 Tab by 90 Tab 3 MG tablet mouth daily. 9 Active glucose monitoring kit 1 Device. 0 01 (FREESTYLE) monitoring 9 kit Active ketoconazole [...] midline low back pain without sciatica Active omeprazole (PRILOSEC) 40 Take 1 Cap [...] unspecified asthma severity, unspecified whether persistent Active meclizine (ANTIVERT) 12.5 Take 1 Tab by 30 Tab 0 MG tablet mouth 3 times 9 daily as needed. Active Insulin Detemir (LEVEMIR Inject 15 6 [...] per long-term current use of scale insulin [facility] provided Active glipiZIDE (GLUCOTROL) 10 Take 1 Tab by 180 Tab 3 MG tabletIndications: mouth two 0 Type 2 diabetes mellitus times daily. with hyperglycemia, with long-term current use of insulin [facility]) Active fluconazole (DIFLUCAN) Take 1 Tab by [...] osteoarthritis type, needed for unspecified site pain Active meclizine (ANTIVERT) 25 Take 1 Tab by 30 Tab 1 MG tablet mouth 3 times 0 daily as needed. Active Azelastine-Fluticasone Take 1-2 1 Bottle 1 137-50 MCG/ACT SUSP sprays twice 0 daily Active fexofenadine (WHITNEY Take 1 Tab by 60 Tab 3 ALLERGY) 180 MG tablet mouth two 0 times daily. 11/02/2019 Discontinued (Patient's Pref erence) pioglitazone (ACTOS) 30 Take 1 Tab by 90 Tab 3 MG tabletIndications: mouth daily. 9 Type 2 diabetes mellitus with hyperglycemia, with long-term current use of insulin ([facility]) 11/02/2019 Discontinued (Reorder) busPIRone (BUSPAR) 10 MG Take 1 Tab by 270 Tab 1 tabletIndications: mouth every 9 Depression, unspecified morning AND 2 depression type Tabs nightly. 11/02/2019 Discontinued (Reorder) lorazepam (ATIVAN) 0.5 MG Take 1 Tab by 15 Tab 0 tablet mouth daily 9 as needed for Anxiety. 11/02/2019 Discontinued (Reorder) trazodone (DESYREL) 50 MG TAKE 1 TO 2 60 Tab 0 tablet TABLETS BY 0 MOUTH NIGHTLY NEEDED FOR INSOMNIA. 11/02/2019 Discontinued (Reorder) sertraline (ZOLOFT) 100 Take 1.5 Tabs 45 Tab 0 MG tablet by mouth 0 daily. 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 documented as of this encounter Last Filed Vital Signs Reading Time Taken Comments Vital Sign 108/74 10/29/2019 11:08 AM LASTEX OPERATOR Blood Pressure 81 10/29/2019 11:08 AM LASTEX OPERATOR Pulse 36.5 C (97.7 F) 10/29/2019 11:08 AM LASTEX OPERATOR Temperature - - Respiratory Rate 98% 10/29/2019 11:08 AM LASTEX OPERATOR Oxygen Saturation - - Inhaled Oxygen Concentration 70.2 kg (154 lb 12.8 oz) 10/29/2019 11:08 AM LASTEX OPERATOR Weight 152.4 cm (5') 10/29/2019 11:08 AM LASTEX OPERATOR Height 30.23 10/29/2019 11:08 AM LASTEX OPERATOR Body Mass Index documented in this encounter Patient Instructions * Patient Instructions* Lynnette Servin MD - 10/29/2019 5:10 PM LASTEX OPERATOR - return in 1 week with sugar log - to re-evaluate dizziness on whitney 180 mg twice daily and dymista EX OPERATOR documented in this encounter Progress Notes * Lynnette Servin MD - 10/29/2019 5:10 PM LASTEX OPERATOR CC: Chief Complaint Patient presents with Dizziness Blood Sugar Problem HISTORY OF PRESENT ILLNESS: Bhupinder Carlos is a 48 y.o. year old female who presents for following ata rns: HPI # Dizziness - having evaluation with balance - having daily episodes, gets up and got dizzy - this morning felt that she was leaning - got better but still with her, meclizine 25 mg - singulair not working, zyrtec 10 mg, sudafed for a couple days, using the flon ase over the - using OTC flonase, candelarioitin does not work, has been whitney/zyrtec/xyzal but a lternative - 10/04-10/14- was dizzy and dehydrated, which improved a little with sugar contro l and with addition of meclizine - 10/19/2019-10/21/2019 - recurrent dizziness - 10/23/2019 - current - having dizziness and we are titrating insulin, increased meclizine to 25 mg but limited by sedation but some effectiveness, waiting on [facility] evaluation # DM2 - sugars in the 200s on levemir 18 units. Not at goal of levemir 20 units, no re cent sugars but will return in 1 week with log # TUNG - pending GERIATRIC CASE MANAGER appointment - needs CPAP as it is likely causing a lot of sleepiness and concentration issue s and also necessary given recent TIA and goal of stroke prevention - went to work on Tuesday, out -Tue, out today and tomorrow for appts - will need to work aggressive REVIEW OF SYSTEMS Review of Systems Except [...] f or 2-4 weeks 1 Tube 6 Diclofenac Sodium 1 % GEL Apply 2-4 gram to affected area up to 4 times julius y as needed for pain 1 Tube 12 famotidine (PEPCID) 40 MG tablet Take 1 Tab by mouth every evening. 30 Tab 1 fluconazole (DIFLUCAN) 150 MG tablet Take 1 [...] daily as nee ded. 30 Tab 0 meclizine (ANTIVERT) 25 MG tablet Take 1 Tab by mouth 3 times daily as neede d. 30 Tab 1 montelukast (SINGULAIR) 10 MG tablet Take 1 Tab by mouth daily. 90 Tab 3 omeprazole (PRILOSEC) 40 MG capsule Take 1 Cap by mouth daily. May substitut e formulary preferred, generic, brand, or alternative. 90 Cap 3 pioglitazone (ACTOS) 30 MG tablet Take 1 Tab by mouth daily. (Patient not ta jesika: Reported on 08/28/2019) 90 Tab 3 propranolol (INDERAL LA) 80 MG SR capsule Take 1 Cap by mouth daily. 90 Cap 3 sertraline (ZOLOFT) 100 MG tablet Take 1.5 Tabs by mouth daily. 45 Tab 0 Sitagliptin Phosphate 100 MG TABS Take 100 mg by mouth daily. 90 Each 3 Spacer/Aero-Holding Chambers (E-Z SPACER) JAYLEN Dispense one, use daily 1 Eac h 0 trazodone (DESYREL) 50 MG tablet TAKE 1 TO 2 TABLETS BY MOUTH NIGHTLY NEE DED FOR INSOMNIA. 60 Tab 0 No current facility-administered medications on file prior to visit. ALLERGIES Allergies as of 10/29/2019 - Reviewed 10/29/2019 Allergen Reaction Noted Augmentin [amoxicillin-pot clavulanate] 06/30/2018 [...] No PHYSICAL EXAM VS : Blood pressure 108/74, pulse 81, temperature 97.7 F (36.5 C), temperatu re source Oral, height 5' (1.524 m), weight 154 lb 12.8 oz (70.2 kg), SpO2 98 %. Body mass index is 30.23 kg/m. Physical Exam Constitutional: She is oriented to person, place, and time and well-developed, w ell-nourished, and in no distress. No distress. HENT: Head: Normocephalic and atraumatic. Right Ear: External ear normal. Left Ear: External ear normal. Mouth/Throat: Oropharynx is clear and moist. Bilateral nasal turbinates swollen/inflamed. Posterior oropharynx with irritatio n and cobblestoning. Bilateral TMs with irritation and pressure but without puru lence and other s/s of otitis. Eyes: Pupils are equal, round, and reactive to light. Conjunctivae are normal. N o scleral icterus. Neck: Neck supple. Cardiovascular: Normal rate, regular rhythm, normal heart sounds and intact dist al pulses. No murmur heard. Pulmonary/Chest: Effort normal and breath sounds normal. No respiratory distress . She has no wheezes. She has no rales. Abdominal: Soft. Bowel sounds are normal. She exhibits no distension. There is n o abdominal tenderness. There is no rebound. Musculoskeletal: General: No edema. Lymphadenopathy: She has no cervical adenopathy. Neurological: She is alert and oriented to person, place, and time. Gait normal. Skin: Skin is warm and dry. She is not diaphoretic. Psychiatric: Mood, memory, affect and judgment normal. ADDITIONAL DATA Labs and Xrays were reviewed. Outside medical records including labs and imaging are reviewed and incorporated into HPI, assessment and plan. IMPRESSION AND PLAN Bhupinder was seen today for dizziness and blood sugar problem. Diagnoses and all orders for this visit: Vertigo AR with ETD - Azelastine-Fluticasone 137-50 MCG/ACT SUSP; Take 1-2 sprays twice daily - fexofenadine (WHITNEY ALLERGY) 180 MG tablet; Take 1 Tab by mouth two time s daily. TUNG (obstructive sleep apnea) - Pending sleep eval DM2 - increase to levemir 20 units and asked that she slowly work on titrating up le vemir 1 unit every 2-3 days until sugars are consistently in the 100s. - will need to bring log to next visit Risks, benefits, and common side effects of [...] decision making. Lynnette Servin MD Internal Medicine [facility] EX OPERATOR documented in this encounter Plan of Treatment Care Team Description Date Type Specialty Lynnette Servin MD [address] [address] 11/19/2019 Office Visit General Internal Me Arleth Pruitt, DARRYL [address] [place] [address] 11/22/2019 Office Visit Audiology Rajinder Mccullough MD [address] [place] [address] [phone] 11/30/2019 Office Visit Dermatology Ev Richardson MD [address] [facility] [address] [place] [address] [phone] 01/02/2020 Office Visit Sleep Center Miguel Stratton MD [address] [place] [address] [phone] 02/01/2020 Confidential Psychiatry Health Maintenance Due Date Last Done Comments [...] filedocumented in this encounter Visit Diagnoses Diagnosis Vertigo - Primary Dizziness and giddiness TUNG (obstructive sleep apnea) Obstructive sleep apnea (adult) (pediat stephanie) documented in this encounter Insurance Type Payer Benefit Subscriber ID Effective Phone Address Plan / Dates Group PPO [employer] xxxxxxxxxxx 2019-P [id number] ACCESS - [place] [id number] documented as of this encounter
--- OUTSIDE RECORDS SUMMARY | 2020-05-08 17:39 | XMS REPORT | Summary of Care ---
Author Author [facility] Organization [facility] Address Unknown Phone Unavailable Care Team Providers Care Salt Refiner Name Role Phone Lynnette Servin MD PCP Reason for Visit * Reason Comments Alopecia Encounter Details Care Team Description Date Type Department Rajinder Mccullough MD [address] [facility] [address] [place] [address] [phone] Alopecia 04/25/2019 Office Visit [facility] Lesage tology [address], [facility] [address] [place] [phone] Allergies Comments Active Allergy Reactions Severity Noted Date diarrhea Amoxicillin-Pot High 06/30/2018 Clavulanate Tongue itching Bactrim Ds Medium 06/30/2018 Chest pain Opioid Analgesics High 06/30/2018 documented as of this encounter (statuses as of 04/25/2019) Medications End Date Status Medication Sig Dispensed Refills Start Date Active Continuous Blood Gluc 1 Device 1 Device 0 11/18 Manager Forensic (FREESTYLE HILDA daily. 9 READER) DEVIIndications: Type 2 diabetes mellitus with hyperglycemia, with long-term current use of insulin Active Continuous Blood Gluc 1 Each every 2 Each 11 Sensor (FREESTYLE HILDA 14 days. 9 SENSOR SYSTEM) MISCIndications: Type 2 diabetes mellitus with hyperglycemia, with long-term current use of insulin Active Insulin Detemir (LEVEMIR Inject 15 6 Pen 3 0 FLEXTOUCH) 100 UNIT/ML Units into 9 SOPNIndications: Type 2 the skin diabetes mellitus with nightly. hyperglycemia, with long-term current use of insulin Active Insulin Aspart (NOVOLOG Inject 5 6 Pen 3 FLEXPEN) 100 UNIT/ML units three 9 SOPNIndications: Type 2 times a day diabetes mellitus with before each hyperglycemia, with meal per long-term current use of scale insulin provided Active pioglitazone (ACTOS) 30 Take 1 Tab by 90 Tab 3 MG tabletIndications: mouth daily. 9 Type 2 diabetes mellitus with hyperglycemia, with long-term current use of insulin Active Insulin Pen Needle (BD Inject 200 Each 11 PEN NEEDLE GLEN U/F) 32G insulin 4 9 X 4 MM MISC times a day Active atorvastatin (LIPITOR) 40 Take 1 Tab by 90 Tab 3 MG tablet mouth daily. 9 Active valacyclovir (VALTREX) 1 Take 1 Tab by 20 Tab 3 g tabletIndications: mouth daily. 9 HSV-2 infection For 5 days Active sucralfate (CARAFATE) 1 g Take 1 Tab by 120 Tab 1 tablet mouth four 9 times daily. Active ondansetron (ZOFRAN) 4 MG Take 1 Tab by 30 Tab 5 tabletIndications: mouth every 8 9 Dyspepsia, hours as Gastroesophageal reflux needed for disease, esophagitis Nausea. presence not specified, Upper abdominal pain, Nausea Active propranolol (INDERAL LA) Take 1 Cap by 30 Cap 1 80 MG SR mouth daily. 9 capsuleIndications: Other migraine without status migrainosus, not intractable Active omeprazole (PRILOSEC) 40 Take 1 Cap by 60 Cap 1 MG capsuleIndications: mouth two 9 Dyspepsia, times daily. Gastroesophageal reflux disease, esophagitis presence not specified, Upper abdominal pain, Nausea Active busPIRone (BUSPAR) 10 MG Take 1 Tab by 180 Tab 3 tabletIndications: mouth two 9 Depression, unspecified times daily. depression type Active clotrimazole-betamethason Apply pea 45 g 1 e (LOTRISONE) size (0.5 gm) 9 creamIndications: Vaginal on effected itching area twice a day Active montelukast (SINGULAIR) Take 1 Tab by 30 Tab 3 10 MG tabletIndications: mouth daily. 9 Allergic rhinitis, unspecified seasonality, unspecified trigger Active gabapentin (NEURONTIN) Take 1 Cap by 90 Cap 1 0 300 MG mouth at 9 capsuleIndications: bedtime. Chronic midline low back pain without sciatica Active glipiZIDE (GLUCOTROL) 10 Take 1 Tab by 180 Tab 3 MG tablet mouth two 9 times daily. Active benzonatate (TESSALON) benzonatate 0 100 mg capsule 100 mg capsule Active glucose monitoring kit 1 Device. 0 01 (FREESTYLE) monitoring 9 kit Active clotrimazole (LOTRIMIN) 1 clotrimazole 0 % cream 1 % topical cream Active ondansetron (ZOFRAN-ODT) ondansetron 4 0 4 mg disintegrating mg tablet disintegratin g tablet Active amitriptyline (ELAVIL) 25 Take 1 Tab by 30 Tab 1 MG tablet mouth 9 nightly. Active buPROPion (WELLBUTRIN) Take 1 Tab by 30 Tab 1 0 150 MG XL tablet mouth every 9 morning. Active lorazepam (ATIVAN) 0.5 MG Take 1 Tab by 15 Tab 0 tablet mouth daily 9 as needed for Anxiety. Active ketoconazole (NIZORAL) 2 Apply to 120 mL 5 0 % shampooIndications: scalp to wash 9 Telogen effluvium, twice a week Seborrheic dermatitis as needed 04/25/2019 Discontinued sertraline (ZOLOFT) 50 MG Take 1 Tab by 90 Tab 3 tabletIndications: mouth daily. 9 Depression, unspecified depression type documented as of this encounter (statuses as of 04/25/2019) Active Problems Problem Noted Date Type 2 diabetes mellitus with complication, with long -term current use of 01/02/2019 insulin Palpitation 01/02/2019 Migraine 01/02/2019 Mild episode of recurrent major depressive disorder 01/02/2019 Insomnia 01/02/2019 Fatty liver disease, nonalcoholic Pulmonary embolism Overview: in setting of gallbladder surgery, prev iously on eliquis, now off documented as of this encounter (statuses as of 04/25/2019) Immunizations Name Administration Dates Next Due Influenza [...] asked occasion? Sex Assigned at Date Recorded Not on file Industry Job Start Date Occupation Not on file Not on file Not on file Travel End Travel History Travel Start No recent travel history available. documented as of this encounter Last Filed Vital Signs Reading Time Taken Comments Vital Sign 117/75 04/25/2019 1:58 PM CDT Blood Pressure 90 04/25/2019 1:58 PM CDT Pulse - - Temperature - - Respiratory Rate - - Oxygen Saturation - - Inhaled Oxygen Concentration 69.4 kg (153 lb) 04/25/2019 1:58 PM CDT Weight 152.4 cm (5') 04/25/2019 1:58 PM CDT Height 29.88 04/25/2019 1:58 PM CDT Body Mass Index documented in this encounter Patient Instructions * Patient Instructions* Rajinder Mccullough MD - 04/25/2019 2:15 PM CDT Start Rogaine (minoxidil) foam 5% and apply 1/2 capful once daily. documented in this encounter Progress Notes * Rajinder Mccullough MD - 04/25/2019 2:15 PM CDT Name: Bhupinder Carlos Date: 04/25/19 Chief Complaint: Chief Complaint Patient presents with Alopecia HPI: Bhupinder Carlos is a 48 y.o. female who presents for hair loss. It started 6 years ago on the top of her hair but has progressed since then without rapid wor sening. She gets scalp pruritus and breakouts some times. She needs to wash her hair daily because it gets oily. FH of hair loss in mother (when older). She has nodules on her thyroid but levels are normal. Does not follow a good diet. She is diabetic. No weight loss. No patches of hair loss and not pulling hair. No hi story of anemia. She had cholecystectomy last year and had two PEs. She has a hi story of melanoma in 1999 and had skin check in September. PMH: (+) for personal history of skin cancer: melanoma in 1999 FH: (+) for family history of skin cancer: maternal aunt (melanoma) Medications: Current Outpatient Medications: amitriptyline (ELAVIL) 25 MG tablet, Take 1 Tab by mouth nightly., Disp: 30 Tab, Rfl: 1 atorvastatin (LIPITOR) 40 MG tablet, Take 1 Tab by mouth daily., Disp: 90 T ab, Rfl: 3 benzonatate (TESSALON) 100 mg capsule, benzonatate 100 mg capsule, Disp: , Rfl: buPROPion (WELLBUTRIN) 150 MG XL tablet, Take 1 Tab by mouth every morning. , Disp: 30 Tab, Rfl: 1 busPIRone (BUSPAR) 10 MG tablet, Take 1 Tab by mouth two times daily., Disp : 180 Tab, Rfl: 3 clotrimazole (LOTRIMIN) 1 % cream, clotrimazole 1 % topical cream, Disp: , Rfl: clotrimazole-betamethasone (LOTRISONE) cream, Apply pea size (0.5 gm) on ef fected area twice a day, Disp: 45 g, Rfl: 1 Continuous Blood Gluc Manager Forensic (FREESTYLE HILDA READER) JAYLEN, 1 Device julius y., Disp: 1 Device, Rfl: 0 Continuous Blood Gluc Sensor (FREESTYLE HILDA SENSOR SYSTEM) [facility] 1 Each e very 14 days., Disp: 2 Each, Rfl: 11 gabapentin (NEURONTIN) 300 MG capsule, Take 1 Cap by mouth at bedtime., Dis p: 90 Cap, Rfl: 1 glipiZIDE (GLUCOTROL) 10 MG tablet, Take 1 Tab by mouth two times daily., D isp: 180 Tab, Rfl: 3 glucose monitoring kit (FREESTYLE) monitoring kit, 1 Device., Disp: , Rfl: Insulin Aspart (NOVOLOG FLEXPEN) 100 UNIT/ML SOPN, Inject 5 units three anabell es a day before each meal per scale provided (Patient not taking: Reported on 04/25/2019), Disp: 6 Pen, Rfl: 3 Insulin Detemir (LEVEMIR FLEXTOUCH) 100 UNIT/ML SOPN, Inject 15 Units into the skin nightly., Disp: 6 Pen, Rfl: 3 Insulin Pen Needle (BD PEN NEEDLE GLEN U/F) 32G X 4 MM MISC, Inject insulin 4 times a day, Disp: 200 Each, Rfl: 11 lorazepam (ATIVAN) 0.5 MG tablet, Take 1 Tab by mouth daily as needed for A nxiety., Disp: 15 Tab, Rfl: 0 montelukast (SINGULAIR) 10 MG tablet, Take 1 Tab by mouth daily., Disp: 30 Tab, Rfl: 3 omeprazole (PRILOSEC) 40 MG capsule, Take 1 Cap by mouth two times daily., Disp: 60 Cap, Rfl: 1 ondansetron (ZOFRAN) 4 MG tablet, Take 1 Tab by mouth every 8 hours as need ed for Nausea., Disp: 30 Tab, Rfl: 5 ondansetron (ZOFRAN-ODT) 4 mg disintegrating tablet, ondansetron 4 mg disin tegrating tablet, Disp: , Rfl: pioglitazone (ACTOS) 30 MG tablet, Take 1 Tab by mouth daily. (Patient natividad ng differently: Take 15 mg by mouth daily.), Disp: 90 Tab, Rfl: 3 propranolol (INDERAL LA) 80 MG SR capsule, Take 1 Cap by mouth daily., Disp : 30 Cap, Rfl: 1 sucralfate (CARAFATE) 1 g tablet, Take 1 Tab by mouth four times daily., Di sp: 120 Tab, Rfl: 1 valacyclovir (VALTREX) 1 g tablet, Take 1 Tab by mouth daily. For 5 days, D isp: 20 Tab, Rfl: 3 ROS: Constitutional: (-) for fevers, (-) for chills Skin: (-) for rash, (-) for pruritus Physical Exam: Vitals: Blood pressure 117/75, pulse 90, height 5' (1.524 m), weight 153 lb (69. 4 kg). Constitutional: well developed, well nourished, not diaphoretic, not distressed HEENT: normocephalic, atraumatic Neurologic: alert and oriented. Normal mood and affect. Skin: warm and dry Diffuse thinning of hairs, most severe on vertex/crown scalp, with several minia turized hairs. Frontal hair line is preserved. Scale noted on hairs. Assessment and Plan: 1. Alopecia: favor androgenetic alopecia, cannot rule out telogen effluvium - I discussed a biopsy with the patient as well as treatment options. She decide d to try treatments first. - Start Rogaine (minoxidil) foam 5% and apply 1/2 capful once daily. Side effect s discussed. - Start Ketoconazole shampoo as below. - Will check Vitamin D levels. - Can consider a biopsy at follow up if not improving. 2. Seborrheic dermatitis - Start Ketoconazole shampoo 2% twice a week as needed. Return to clinic in 4 months or sooner as needed. Rajinder Mccullough MD documented in this encounter Plan of Treatment Care Team Description Date Type Specialty Lynnette Servin MD [address] [place], [place] [id number] 04/27/2019 Office Visit General Internal Me Rajinder Butt MD [address] [facility] [address] [place], [place] [id number] 08/24/2019 Office Visit Dermatology Order Schedule Name Type Priority Associated Diag noses Ordered: 04/25/2019 VITAMIN D 25 HYDROXY Lab Routine Alopecia Telogen effluvium Health Maintenance Due Date Last Done Comments COLON CANCER SCREENIN1968 COLONOSCOPY MAMMOGRAM ANNUAL 1968 TETANUS SHOT (ADULT) 1983 ANNUAL DIABETIC 1986 RETINOPATHY SCREENING BMI FOLLOW UP PLAN 1986 HIV SCREENING 1986 FLU VACCINE > 6 MONTHS 04/19/2019 06/10/2018 A1C TESTING EVERY 6 06/16/2019 12/14/2018 MONTHS ANNUAL DIABETIC FOOT EXAM 12/15/2019 12/14/2018 CERVICAL CANCER SCREENING 03/08/2022 03/08/2019, 10/11/2017 3 YEAR FOLLOW UP documented as of this encounter Results Not on filedocumented in this encounter Visit Diagnoses Diagnosis Alopecia - Primary Alopecia, unspecified Telogen effluvium Seborrheic dermatitis Seborrheic dermatitis, unspecified documented in this encounter Insurance Type Payer Benefit Subscriber ID Effective Phone Address Plan / Dates Group PPO [facility] xxxxxxxxx 2018- [address] PPO - BCM Present [address] [place] [address] [place] [facility] xxxxxxxxx Effective [address] [place] [id number] [place] [address] PPO CARDIOVASCULAR CARE [facility] - xxxxxxxxx 2018-P [address] [facility] John Martinez PROVIDERS [address] [place] [phone] documented as of this encounter
--- OUTSIDE RECORDS SUMMARY | 2020-05-08 17:39 | XMS REPORT | Summary of Care ---
Author Author [facility] Organization [facility] Address Unknown Phone Unavailable Care Team Providers Care Grade Foreman Name Role Phone Lynnette Servin MD PCP Reason for Referral * Consult, Test & Treat (Routine) Referred By Contact Referred To Contact Status Reason Specialty Diagnoses / Procedures Lynnette Servin MD [address] [address] Ortiz Childers MD [address] [place] [address] Pending Consult, Test, and Bariatrics Diagnoses Treat Type 2 diabetes mellitus with complication, without long-term current use of insulin (HCCode) Gastroesophageal reflux disease without esophagitis Hyperlipidemia, unspecified hyperlipidemia type NAFLD (nonalcoholic fatty liver disease) P rocedures [place] OFFICE OUTPATIENT NEW 30 MINUTES Reason for Visit * Reason Comments Forms FMLA Encounter Details Care Team Description Date Type Department Lynnette Servin MD [address] [address] [phone] Forms (FMLA) 06/12/2019 Office Visit [facility] General Internal Medicine [facility] [address]; [address] [place] [address] Allergies Comments Active Allergy Reactions Severity Noted Date diarrhea Amoxicillin-Pot High 06/30/2018 Clavulanate Tongue itching Bactrim Ds Medium 06/30/2018 ONLY WITH GENERIC FLUCONAZOLE with itching and rash Fluconazole 06/12/2019 Chest pain Opioid Analgesics High 06/30/2018 documented as of this encounter (statuses as of 06/12/2019) Medications End Date Status Medication Sig Dispensed Refills Start Date Active Continuous Blood Gluc 1 Device 1 Device 0 03/2 8/201 Distribution Coordinator (FREESTYLE HILDA daily. 9 READER) DEVIIndications: Type 2 diabetes mellitus with hyperglycemia, with long-term current use of insulin (HCCode) Active Continuous Blood Gluc 1 Each every 2 Each Sensor (FREESTYLE HILDA 14 days. 9 SENSOR SYSTEM) MISCIndications: Type 2 diabetes mellitus with hyperglycemia, with long-term current use of insulin [facility] Active Insulin Detemir (LEVEMIR Inject 15 6 Pen 3 0 FLEXTOUCH) 100 UNIT/ML Units into 9 SOPNIndications: Type 2 the skin diabetes mellitus with nightly. hyperglycemia, with long-term current use of insulin [facility]) Active Insulin Aspart (NOVOLOG Inject 5 6 Pen 3 FLEXPEN) 100 UNIT/ML units three 9 SOPNIndications: Type 2 times a day diabetes mellitus with before each hyperglycemia, with meal per long-term current use of scale insulin ([facility]) provided Active pioglitazone (ACTOS) 30 Take 1 Tab by 90 Tab 3 MG tabletIndications: mouth daily. 9 Type 2 diabetes mellitus with hyperglycemia, with long-term current use of insulin [facility]) Active Insulin Pen Needle (BD Inject 200 Each PEN NEEDLE GLEN U/F) 32G insulin 4 9 X 4 MM MISC times a day Active atorvastatin (LIPITOR) 40 Take 1 Tab by 90 Tab 3 MG tablet mouth daily. 9 Active valacyclovir (VALTREX) 1 Take 1 Tab by 20 Tab 3 g tabletIndications: mouth daily. 9 HSV-2 infection For 5 days Active glipiZIDE (GLUCOTROL) 10 Take 1 Tab by 180 Tab 3 MG tablet mouth two 9 times daily. Active glucose monitoring kit 1 Device. 0 01 (FREESTYLE) monitoring 9 kit Active ketoconazole (NIZORAL) 2 Apply to 120 mL 5 0 % shampooIndications: scalp to wash 9 Telogen effluvium, twice a week Seborrheic dermatitis as needed Active Ergocalciferol 94182 Take one 12 Each 0 04/26 units CAPS tablet weekly 9 Active propranolol (INDERAL LA) Take 1 Cap by 90 Cap 3 80 MG SR mouth daily. 9 capsuleIndications: Other migraine without status migrainosus, not intractable Active gabapentin (NEURONTIN) Take 2 Caps 180 Cap 1 300 MG by mouth at 9 capsuleIndications: bedtime. Chronic midline low back pain without sciatica Active fluconazole (DIFLUCAN) Take 1 Tab by 3 Tab 0 0 150 MG tabletIndications: mouth daily. 9 Candidiasis Active Sitagliptin Phosphate 100 Take 100 mg 30 Each 3 MG TABSIndications: Type by mouth 9 2 diabetes mellitus with daily. complication, without long-term current use of insulin (HCCode) Active tretinoin (RETIN-A) 0.025 Apply a small 45 g 3 % creamIndications: amount 9 Wrinkles topically to face every night Active cyclobenzaprine Take 1 Tab by 30 Tab 1 05/14/20 1 (FLEXERIL) 10 MG mouth 2 times 9 tabletIndications: daily as Chronic midline low back needed for pain with bilateral Muscle sciatica, Back muscle spasms. spasm Active dexamethasone 1 MG Take a dose 60 Each 0 05/14/ 01 TABSIndications: at 11 PM and 9 Cushingoid facies go for cortisol labs at 8AM Active sertraline (ZOLOFT) 100 Take 1 Tab by 30 Tab 1 MG tablet mouth daily. 9 Active amitriptyline (ELAVIL) 50 Take 1 Tab by 30 Tab 1 MG tablet mouth 9 nightly. Active busPIRone (BUSPAR) 10 MG Take 1 Tab by 270 Tab 1 tabletIndications: mouth every 9 Depression, unspecified morning AND 2 depression type Tabs nightly. Active lorazepam (ATIVAN) 0.5 MG Take 1 Tab by 15 Tab 0 tablet mouth daily 9 as needed for Anxiety. Active acarbose (PRECOSE) 25 MG Take 1 Tab by 90 Tab 6 tabletIndications: mouth 3 times 9 Encounter for therapeutic daily (with drug monitoring, Type 2 meals). diabetes mellitus with complication, without long-term current use of insulin (HCCode) Active omeprazole (PRILOSEC) 40 Take 1 Cap [...] between toes twice daily for 2-4 weeks 06/12/2019 Discontinued clotrimazole-betamethason Apply pea 45 g 1 e (LOTRISONE) size (0.5 gm) 9 creamIndications: Vaginal on effected itching area twice a day 06/12/2019 Discontinued metformin (GLUCOPHAGE-XR) Take 2 Tabs 120 Tab 0 500 MG XR by mouth two 9 tabletIndications: Type 2 times daily. diabetes mellitus with complication, without long-term current use of insulin (HCCode) 06/12/2019 Discontinued omeprazole (PRILOSEC) 20 Take 1 Cap by 30 Cap 1 MG capsuleIndications: mouth daily. 9 Gastroesophageal reflux disease, esophagitis presence not specified documented as of this encounter (statuses as of 06/12/2019) Active Problems Problem Noted Date TIA (transient [...] long -term current use of 01/02/2019 insulin [facility] Last Assessment & Plan: Taking glipizide 10 [...] as of this encounter (statuses as of 06/12/2019) Immunizations Name Administration Dates Next Due Influenza [...] Signs Reading Time Taken Comments Vital Sign 104/72 06/12/2019 3:50 PM CDT Blood Pressure 81 06/12/2019 3:50 PM CDT Pulse 36.8 C (98.3 F) 06/12/2019 3:50 PM CDT Temperature - - Respiratory Rate 95% 06/12/2019 3:50 PM CDT Oxygen Saturation - - Inhaled Oxygen Concentration 73.8 kg (162 lb 9.6 oz) 06/12/2019 3:50 PM CDT Weight 152.4 cm (5') 06/12/2019 3:50 PM CDT Height 31.76 06/12/2019 3:50 PM CDT Body Mass Index documented in this encounter Patient Instructions * Patient Instructions* Lynnette Servin MD - 06/12/2019 3:15 PM CDT - Do another trial of Metformin (has to be with food in the stomach) and see if we can wean off some of the other medications - Lets trial acarbose with meals - If sugars are better controlled, goal is to come off one tablet of glipizide ( to once daily) - if we can successfully do this, I will convert actos and glipizide to a singl e pill documented in this encounter Progress Notes * Lynnette Servin MD - 06/12/2019 3:15 PM CDT CC: Chief Complaint Patient presents with Forms FMLA HISTORY OF PRESENT ILLNESS: Bhupinder Carlos is a 48 y.o. year old female who presents for following concerns: Type 2 diabetes mellitus with complication, with long-term current use of insuli n (HCCode) Taking glipizide 10 mg BID, Levemir 15 units + Aspart 5 units TID, Actos 30 mg, januvia 100 mg daily - SGLT2i cause yeast infections, GLP agonists caused pancreatitis - like symptom s - Metformin 500 mg XR caused GI symptoms - BGs: - Fasting/AM: 200s, average 230s - Eye Exam: Due - Foot Exam: UTD - Microalbumin/HAYLEE/ARB: UTD in 12/2018 - Neuropathy - managed on gabapentin 300 mg and elavil 50 mg qHS - Denies any hypoglycemic symptoms or numbers on fingerstick GERD (gastroesophageal reflux disease) GERD+PUD improved - off sucralfate, only taking omeprazole PRN every few days - will trial 20 mg t ablets with goal of weaning to H2 kemar - had to take a second dose # Shortness of breath - associates with muscle weakness sometimes, palpitations sometimes but not alwa ys associated - echo at [facility] - walking from here to to garage makes her feel like she can't catch her breath - had a stress done by a steamer operator in [place] - need records # Back Muscle Spasms - on flexeril with good response # Suspected TUNG - waiting on sleep study - emailed Dr. Logan today to see if earlier appt is pos sible # Chronic Urethritis - was seen by outside Urology who after years of failed treatment, was started o n low dose clobetasol with great results - discussed skin color changes and atrophy # Vertigo - here and there, worse with moving quickly # Lower back pain with Sciatica - taking gabapentin 300 mg which helps after hours but not acutely - has not gotten XRs done yet - unfortunately our PT dept does not see patients so waiting on external PT # FMLA and jury duty forms Body mass index is 31.76 kg/m. REVIEW OF SYSTEMS Review of Systems Except [...] Prior to Visit Medication Sig Dispense Refill amitriptyline (ELAVIL) 50 MG tablet Take 1 Tab by mouth nightly. 30 Tab 1 atorvastatin (LIPITOR) 40 MG tablet Take 1 Tab by mouth daily. 90 Tab 3 busPIRone (BUSPAR) 10 MG tablet Take 1 Tab by mouth every morning AND 2 Tabs nightly. 270 Tab 1 clotrimazole-betamethasone (LOTRISONE) cream Apply pea size (0.5 gm) on effe cted area twice a day 45 g 1 Continuous Blood Gluc Distribution Coordinator (FREESTYLE HILDA READER) JAYLEN 1 Device daily. 1 Device 0 Continuous Blood Gluc Sensor (FREESTYLE HILDA SENSOR SYSTEM) MISC 1 Each claudia ry 14 days. 2 Each 11 cyclobenzaprine (FLEXERIL) 10 MG tablet Take 1 Tab by mouth 2 times daily as needed for Muscle spasms. 30 Tab 1 dexamethasone 1 MG TABS Take a dose at 11 PM and go for cortisol labs at 8AM (Patient not taking: Reported on 06/12/2019) 60 Each 0 Ergocalciferol 43308 units CAPS Take one tablet weekly 12 Each 0 fluconazole (DIFLUCAN) 150 MG tablet Take 1 Tab by mouth daily. (Patient not taking: Reported on 06/12/2019) 3 Tab 0 gabapentin (NEURONTIN) 300 MG capsule Take 2 [...] needed for Anx iety. 15 Tab 0 pioglitazone (ACTOS) 30 MG tablet Take 1 Tab by mouth daily. (Patient taking differently: Take 15 mg by mouth daily.) 90 Tab 3 propranolol (INDERAL LA) 80 MG SR capsule Take 1 Cap by mouth daily. 90 Cap 3 sertraline (ZOLOFT) 100 MG tablet Take 1 Tab by mouth daily. 30 Tab 1 Sitagliptin Phosphate 100 MG TABS Take 100 mg by mouth daily. 30 Each 3 tretinoin (RETIN-A) 0.025 % cream Apply a small amount topically to face claudia ry night 45 g 3 valacyclovir (VALTREX) 1 g tablet Take 1 Tab by mouth daily. For 5 days (Pat ient not taking: Reported on 06/12/2019) 20 Tab 3 No current facility-administered medications on file prior to visit. ALLERGIES Allergies as of 06/12/2019 - Reviewed 06/12/2019 Allergen Reaction Noted Augmentin [amoxicillin-pot clavulanate] 06/30/2018 Morphine and related [opioid analgesics] 06/30/2018 Bactrim ds 06/30/2018 Fluconazole 06/12/2019 FAMILY HISTORY Family History Problem Relation Name [...] No PHYSICAL EXAM VS : Blood pressure 104/72, pulse 81, temperature 98.3 F (36.8 C), temperatu re source Oral, height 5' (1.524 m), weight 162 lb 9.6 oz (73.8 kg), SpO2 95 %. Physical Exam Constitutional: She is oriented to person, place, and time and well-developed, w ell-nourished, and in no distress. No distress. HENT: Head: Normocephalic and atraumatic. Right Ear: External ear normal. Left Ear: External ear normal. Mouth/Throat: Oropharynx is clear and moist. Eyes: Pupils are equal, round, and reactive [...] exhibits no distension. There is n o tenderness. There is no rebound. Musculoskeletal: She exhibits no edema. Lymphadenopathy: She has no cervical adenopathy. Neurological: She is alert and oriented to person, place, and time. Gait normal. Skin: Skin is warm and dry. She is not diaphoretic. Psychiatric: Mood, memory, affect and judgment normal. ADDITIONAL DATA Labs and Xrays were reviewed. IMPRESSION AND PLAN Bhupinder was seen today for forms. Diagnoses and all orders for this visit: Encounter for therapeutic drug monitoring - acarbose (PRECOSE) 25 MG tablet; Take 1 Tab by mouth 3 times daily (with m eals). - COMPREHENSIVE METABOLIC PANEL Type 2 diabetes mellitus with complication, without long-term current use of ins ulin (HCCode) - acarbose (PRECOSE) 25 MG tablet; Take 1 Tab by mouth 3 times daily (with m eals). - AMB REF TO BARIATRIC SURGERY [facility] Gastroesophageal reflux disease without esophagitis - omeprazole (PRILOSEC) 40 MG capsule; Take 1 Cap by mouth daily. May substi tute formulary preferred, generic, brand, or alternative. - AMB REF TO BARIATRIC SURGERY [facility] Hyperlipidemia, unspecified hyperlipidemia type - AMB REF TO BARIATRIC SURGERY [facility] NAFLD (nonalcoholic fatty liver disease) - AMB REF TO BARIATRIC SURGERY [facility] Risks, benefits, and common side effects of all new medications discussed and pa vivian given opportunity to ask any questions or concerns. They were answered to patient's satisfaction. Lynnette Servin MD Internal Medicine [facility] documented in this encounter Plan of Treatment Care Team Description Date Type Specialty Rajinder Mccullough MD [address] [facility] [address] [place] [address] 08/24/2019 Office Visit Dermatology Ev Richardson MD [address] [facility] [address] [place] [address] 01/02/2020 Office Visit [facility] Order Schedule Name Type Priority Associated Diag noses Ordered: 06/12/2019 COMPREHENSIVE METABOLIC Lab Routine Encoun ter for therapeutic PANEL drug monitoring Order Schedule Name Type Priority Associated Diag noses Ordered: 06/12/2019 AMB REF TO BARIATRIC Outpatient Routine Type 2 di abetes mellitus SURGERY [facility] Referral with complication, without long-term current use of insulin (HCCode) Gastroesophageal reflux disease without esophagitis Hyperlipidemia, unspecified hyperlipidemia type NAFLD (nonalcoholic fatty liver disease) Health Maintenance Due Date Last Done Comments COLON CANCER SCREENIN1968 COLONOSCOPY MAMMOGRAM ANNUAL 1968 TETANUS SHOT (ADULT) 1983 ANNUAL DIABETIC 1986 RETINOPATHY SCREENING BMI FOLLOW UP PLAN 1986 HIV SCREENING 1986 FLU VACCINE > 6 MONTHS 04/19/2019 06/10/2018 A1C TESTING EVERY 6 10/31/2019 04/30/2019, 2018 MONTHS ANNUAL DIABETIC FOOT EXAM 12/15/2019 12/14/2018 CERVICAL CANCER SCREENING 03/08/2022 03/08/2019, 10/11/2017 3 YEAR FOLLOW UP documented as of this encounter Results Not on filedocumented in this encounter Visit Diagnoses Diagnosis Encounter for therapeutic drug monitori ng - Primary Type 2 diabetes mellitus with complicat ion, without long-term current use of insulin (HCCode) Gastroesophageal reflux disease without esophagitis Esophageal reflux Hyperlipidemia, unspecified hyperlipide terrell type NAFLD (nonalcoholic fatty liver disease ) Other chronic nonalcoholic liver diseas e Vaginal itching Pruritus of genital organs Chronic urethritis Urethral syndrome NOS Chronic bilateral low back pain with bi lateral sciatica documented in this encounter Insurance Type Payer Benefit Subscriber ID Effective Phone Address Plan / Dates Group O Multichannel [facility] OPEN xxxxxxxxxxx 2019-P [address] [id number] PLUS - [place] [phone] documented as of this encounter
--- OUTSIDE RECORDS SUMMARY | 2020-05-08 17:39 | XMS REPORT | Continuity of Care Document ---
Author Author [facility] t Organization [facility] t Address [address] [place] [address] Phone Unavailable Care Team Providers Care Manager Data Center Name Role Phone Malathi KEMP, Lynnette PCP Omega TURNER JED Attphys Unavailable Schexnaider BAIT DIGGER, RPSGT, G Karli Attphys Unava jessica Srevin MD, Lynnette Attphys Malathi KEMP, Lynnette Attphys Geronimo OT, Arleth Attphys Unavailable Sim Gayle MD Attphys [phone] Jami Matias MD Attphys SIM GAYLE Attphys Unavailable Jamel KEMP, Rajinder Attphys KEVIN MCKEON Attphys Unavailable KEVIN MCKEON Admphys Unavailable Payers Payer Name Policy Type Policy Number Effective Date Expiration Date S roel CIGNA - MGD CARECIGNA HMO/POS/OPEN ACCESSxxxxxxxxxxxHMO/POS xxxxxxxxxxx [facility] Problems Condition Name Condition Details Condition Category Status Onset Date Resolution Date Last Treatment Date Treating Clinician Comments Source Chest pain, unspecified type Chest pain, unspecified type Disease Active 2019-08-23 00:00:00 [facility] Allergies, Adverse Reactions, Alerts Allergy Name Allergy Type Status Severity Reaction(s) Onset Date Inacti ve Date Treating Clinician Comments Source morphine DA Active MO 2019-05-04 00:00:00 [facility] clavulanic acid DA Active 2019-05-04 00:00:00 [facility] sulfamethoxazole DA Active MS 2019-05-04 00:00:00 [facility] trimethoprim DA Active MS 2019-05-04 00:00:00 [facility] amoxicillin DA Active 2019-05-04 00:00:00 [facility] Amoxicillin-Pot Clavulanate Drug Intolerance Active Di arrhea 2019-03-05 00:00:00 Severe diarrhea [facility] Sulfamethoxazole-Trimethoprim Drug Allergy Active Othe r (See Comments) 2019-03-05 00:00:00 Tongue itching [facility] Morphine Drug Allergy Active Shortness Of Breath, Ot her (See Comments) 2019-03-05 00:00:00 Chest pain [facility] morphine DA Active MO 2017-11-22 00:00:00 [facility] clavulanic acid DA Active 2017-11-22 00:00:00 [facility] sulfamethoxazole DA Active MS 2017-11-22 00:00:00 [facility] trimethoprim DA Active MS 2017-11-22 00:00:00 [facility] amoxicillin DA Active 2017-11-22 00:00:00 [facility] Social History Social Habit Start Date Stop Date Quantity Comments Source Sex Assigned At [facility] Alcohol Comment 2019-03-05 00:00:00 2019-03-05 00:00:00 occasionally [facility] Smoking Status Start Date Stop Date Source Never smoker [facility] Medications Ordered Medication Name Filled Medication Name Start Date Stop Da te Current Medication? Ordering Clinician Indication Dosage Frequency Signature (SIG) Comments Components Source sertraline (ZOLOFT) 50 MG tablet 2019-08-22 20:50:38 Yes 150mg QD Take 150 mg by mouth daily . [facility] LORazepam (ATIVAN) 0.5 MG tablet 2019-08-22 20:50:38 Yes .5mg Take 0.5 mg by mouth every 8 (eight) hours as needed for Anxiety. [facility] sucralfate (CARAFATE) 1 gram tablet 2019-03-05 11:38:52 Yes 1g Take 1 g by mouth as needed. [facility] traZODone (DESYREL) 100 MG tablet 2019-03-05 11:38:52 Yes 100mg QD Take 100 mg by mouth nightly. [facility] valACYclovir (VALTREX) 1000 MG tablet 2019-03-05 11:38:52 Y es 1000mg Take 1,000 mg by mouth as needed. [facility] naltrexone (DEPADE) 50 mg tablet 2019-03-05 11:38:51 Yes 50mg QD Take 50 mg by mouth daily. [facility] omeprazole (PRILOSEC) 40 MG capsule 2019-03-05 11:38:51 Yes 40mg Q.5D Take 40 mg by mouth 2 (two) times daily. [facility] ondansetron (ZOFRAN) 4 MG tablet 2019-03-05 11:38:51 Yes 4mg Take 4 mg by mouth 2 (two) times daily as needed for Nausea. [facility] pioglitazone (ACTOS) 15 MG tablet 2019-03-05 11:38:51 Yes 15mg QD Take 15 mg by mouth daily. [facility] propranolol (INDERAL LA) 80 MG 24 hr capsule 2019-03-05 11:38:51 Yes 80mg QD Take 80 mg by mouth daily. [facility] atorvastatin (LIPITOR) 40 MG tablet 2019-03-05 11:38:50 Yes 40mg QD Take 40 mg by mouth daily. [facility] busPIRone (BUSPAR) 10 MG tablet 2019-03-05 11:38:50 Yes 10mg Q.5D Take 10 mg by mouth 2 (two) times daily. [facility] estradiol (ESTRACE) 0.01 % (0.1 mg/gram) vaginal cream 2019-03-05 11:38:[address] 2 g vaginally daily. [facility] glipiZIDE (GLUCOTROL) 10 MG tablet 2019-03-05 11:38:50 Yes 10mg Take 10 mg by mouth 2 (two) times daily before meals. [facility] insulin detemir U-100 (LEVEMIR) 100 unit/mL (3 mL) InPn inje ction 2019-03-05 11:38:50 Yes 15U QD Inject 15 Units subcutaneousl y nightly. [facility] Vital Signs Vital Name Observation Time Observation Value Comments Source Systolic blood pressure 2019-08-23 16:00:00 109 mm[Hg] [facility] Diastolic blood pressure 2019-08-23 16:00:00 65 mm[Hg] [facility] Heart rate 2019-08-23 16:00:00 96 /min [facility] Body temperature 2019-08-23 16:00:00 36.5 Aysha [facility] Respiratory rate 2019-08-23 16:00:00 18 /min [facility] Oxygen saturation in Arterial blood by Pulse oximetry 2018-09 16:00:00 95 [facility] Measured 2019-08-23 08:13:00 71.4 kg [facility] BMI 2019-08-23 08:13:00 30.74 kg/m2 [facility] Body height 2019-08-22 20:37:00 152.4 cm [facility] Procedures Procedure Date / Time Performed Performing Clinician Arturo niurka POLYSOMNOGRAPHY REPORT - SCAN 2019-12-11 12:00:29 ProviderDia Scanning [facility] UNATTENDED SLEEP STUDY W/ANALYSIS 2019-11-21 10:57:05 Dominic Servin [facility] REPORT OF PROCEDURE - ENDOSCOPY SCAN 2019-08-24 12:00:17 Pro vider, Default Scanning [facility] RHYTHM STRIP - SCAN 2019-08-24 12:00:15 Provider, Default Scanmohini ng [facility] REPORT OF PROCEDURE - ENDOSCOPY SCAN 2019-08-24 11:20:58 Pro vider, Default Scanning [facility] ECHOCARDIOGRAM REPORT - SCAN 2019-08-23 21:10:51 ProviderZana lt [facility] POCT-GLUCOSE METER 2019-08-23 18:11:00 Karli Matias [facility] POCT-GLUCOSE METER 2019-08-23 14:01:00 Karli Matias [facility] 2D ECHO W/ DOPPLER (CW/PW/COLOR) 2019-08-23 12:29:56 St moreno Plunkett [facility] NM MYOCARDIAL PERFUSION SPECT, PHARM(LEXISCAN) 2019-08-23 12 :21:00 Luis Enrique Plunkett [facility] TREADMILL TOLERANCE(NON-NUCLEAR TREADMILL) 2019-08-23 09:49: 22 Unknown, H[facility]7 [facility] ECG 12-LEAD 2019-08-23 09:34:22 Unknown, [facility] POCT-GLUCOSE METER 2019-08-23 08:10:00 Florencio Karli [facility] TROPONIN I 2019-08-23 01:36[facility] 2019-08-22 23:27:00 Brennon Gayle [facility] CT CHEST PE TEST DESIGN 2019-08-22 18:21:00 Leonardo [facility] ED ECG INTERPRETATION 2019-08-22 17:00:21 Patterson [facility] BASIC METABOLIC PANEL (7) 2019-08-22 16:22:00 Leonardo [facility] TROPONIN I 2019-08-22 16:22:00 Patterson [facility] B-TYPE NATRIURETIC FACTOR (BNP) 2019-08-22 16:22:00 Leonardo [facility] CBC W/PLT COUNT & AUTO DIFFERENTIAL 2019-08-22 16:22:00 Joel Pattersono [facility] POCT-GLUCOSE METER 2019-08-22 16:20:00 [facility] ECG 12-LEAD 2019-08-22 16:12:45 Unknown, [facility] XR SACRUM & COCCYX MIN 3 VIEWS 2019-07-02 15:18:00 Malathi, Lynnette [facility] XR LUMBAR SPINE COMP WITH FLEX & EXT 2019-07-02 15:18:00 [facility] Lynnette [facility] Plan of Care Planned Activity Planned Date Details Comments Source Future Scheduled Test 2020-05-20 00:00:00 INFLUENZA VACCINE (#1) [code = INFLUENZA VACCINE (#1)] [facility] Future Scheduled Test 1989 00:00:00 Screening for lorena gnant neoplasm of cervix (procedure) [code = 593772836] [facility] Future Scheduled Test 1968 00:00:00 Screening for lorena gnant neoplasm of breast (procedure) [code = 918406807] [facility] Future Scheduled Test 1968 00:00:00 Screening for lorena gnant neoplasm of colon (procedure) [code = 281450475] [facility] Encounters Start Date/Time End Date/Time Encounter Type Admission Type Attendi [facility] Care Department Encounter ID Source 2019-11-19 14:15:25 2019-11-19 14:35:25 Office Visit Lynnette Newby [facility] [id number] 2019-10-30 14:38:31 2019-10-30 14:39:51 Office Visit Arleth Melton [facility] [id number] 2019-10-29 11:02:04 2019-10-29 17:55:12 Office Visit Lynnette Newby [facility] [id number] 2019-10-12 16:43:54 2019-10-12 17:52:07 Office Visit Lynnette Newby [facility] [id number] 2019-10-09 09:12:12 2019-10-09 10:35:32 Office Visit Lynnette Newby [facility] [id number] 2019-06-12 15:04:36 2019-06-12 17:39:23 Office Visit Lynnette Newby [facility] [id number] 2019-05-14 16:52:12 2019-05-14 17:55:20 Office Visit Lynnette Newby [facility] [id number] 2019-04-27 13:00:17 2019-04-27 13:30:17 Office Visit Lynnette Newby [facility] [id number] 2019-04-25 13:48:26 2019-04-25 14:38:25 Office Visit [facility] [id number] Results Test Description Test Time Test Comments Results Result Comments Source CT CHEST WITH CONTRAST-HOPD 2020-05-08 15:36:00 [place] [address] Patient Name: SUZIE FULLER MR #: [id number] : 1970 Age/Sex: 49/F Req #: [id number] Adm Physician: Ordered by: JED TURNER MD Report #: [id number] Location: [facility] Room/Bed: Procedure: [id number] HOPD/CT CHEST WITH CONTRAST-HOPD Exam Date: Exam Time: REPORT STATUS: Signed EXAM: CT Chest WITH contrast- Pulmonary Embolism Protocol INDICATION: Shortness of breath and chest pain for several days COMPARISON: None TECHNIQUE: Chest was scanned utilizing a multidetector helical scanner from the lung apex through the level of the diaphragm after administration of IV contrast. Thin section reconstructions were obtained with special concentration on the pulmonary arteries. Coronal and sagittal reformations were obtained. Pulmonary embolism protocol was performed. IV CONTRAST: 100 cc of Isovue 370 RADIATION DOSE: Total DLP: 487 mGy*cm Dose modulation, iterative reconstruction, and/or weight based adjustment of the mA/kV was utilized to reduce the radiation dose to as low as reasonably achievable. COMPLICATIONS: None FINDINGS: LINES/ TUBES: None. PULMONARY ARTERIES: No filling defect is identified within the pulmonary arteries to the proximal subsegmental level. Main pulmonary artery measures 2.2 in diameter normal. LUNGS AND AIRWAYS: Negative for focal consolidation. No suspicious pulmonary nodule or mass is identified. Airways are normal. PLEURA: The pleural spaces are clear. HEART AND MEDIASTINUM: The thyroid gland is normal. No mediastinal, hilar or axillary lymphadenopathy. The heart is normal in size.. There is no pericardial effusion. Negative for right ventricular enlargement or bowing of the intervertebral interseptum. Thoracic aorta is of normal caliber. UPPER ABDOMEN: Gallbladder is surgically absent. BONES: Negative for acute osseous abnormality. Probable bone island is noted within a mid thoracic vertebral body. Moderate multilevel degenerative changes are noted. SOFT TISSUES: Unremarkable. IMPRESSION: 1. Negative for pulmonary or secondary signs of right heart strain. 2. Lungs are clear. Signed by: Deon Andino MD on 05/08/2020 3:40 PM Dictated By: DEON ANDINO MD 39 Transcribed By: DEDRICK on 05/08/200 COPY TO: JED TURNER MD Treadmill tolerance(Non-Nuclear Treadmill) 2019-09-10 12:41:36 Interface, External Ris In - 09/10/2019 12:41 PM CSTProtocol Name REGADENOSON Time In Exercise Phase 00:01:00 Max. Systolic BP 117 mmHgMax Diastolic BP 67 mmHgMax Heart Rate 101 BPMMax Predicted Heart Rate 170 BPMReason For Termination Predetermined end point Reason for Test Chest Pain Target HR Formula (220 - Age)*100% Arrhythmias none Resting ECG Normal sinus rhythm ST Changes No Significant Changes Overall Impression Indeterminate due to pharmacological stress Chest Pain 3/10 HR Response To Exercise appropriate BP Response To Exercise APPROPRIATE RESPONSE ASALIPITORPropanololATARAXConfirmed by fellow Micah Rivera ([id number]) on 08/23/2019 11:12:07 AMConfirmed by MD BOBO JORGE ([id number]) on 09/10/2019 12:41:32 PM [facility] POC-Glucose meter 2019-08-23 18:23:00 Test Item POC-Glucose Meter (test code = 1538) 287 mg/dL 70-110 H : Notified RN/MD: TESTED AT [address], [address]: Documentation Improvement Specialist/Archives Specialist ID = [id number] for NIRMAL-SHOCK, TEASIA Lab Interpretation (test code = 93265-3) [facility]normal [facility] [id number] 18:23:00* Test Item Value Reference Range Interpretation Comments POC-GLUCOSE METER (BEAKER) (test code = 1538) 287 mg/dL 70-110 H : Notified RN/MD: TESTED AT [address], [address]: Documentation Improvement Specialist/Archives Specialist ID = [id number] for NIRMAL-SHOCK, TEASIA [facility], MULTI, PHARM, [id number] 18:04:00FINAL REPORT PROCEDURE: Rest/Stress MYOCARDIAL PERFUSION SPECT with regadenoson\\XA9\\ CPT CODE: 10466 INDICATION: Chest pain HISTORY: Cardiac risk factors: Diabetes, hyperlipidemia, early family history of CAD. Other cardiovascular history: No reported CAD. Recent cardiac symptoms: Shortness of breath, chest pain. Current cardiovascular-related medications: Propranolol, Lipitor, aspirin. PROTOCOL: 10.8 mCi of Tc-99m se stamibi was injected iv at rest, and SPECT (tomographic) images were obtained. A lso, 32.6 mCi of Tc-99m sestamibi was injected iv at expected peak pharmacologic effect, and gated SPECT images were obtained. PRELIMINARY STRESS TEST DATA FROM NONINVASIVE CARDIOLOGY: Pharmacologic stress was by 10-second iv infusion of 0.4 mg of regadenoson. Radiotracer was injected 30 seconds after start of stress . Heart rate was 75 beats/min at rest and 101 beats/min (59 % of MPHR) at tracer injection. BP was 103/72 mmHg at rest and 117/67 mmHg at tracer injection. Stre ss was stopped for predetermined endpoint. The patient experienced lightheadedne ss; treatment was not required. Preliminary ECG evaluation revealed sinus rhythm at rest and was indeterminate due to pharmacological stress. (Final ECG interpr etation and other stress and monitoring data are reported separately by Cardiolo gy.) IMAGING FINDINGS: Study quality is good. Images obtained after rest and stress injections show normal LV activity. LV and RV volumes appear normal. Gated images obtained at rest after stress show normal LV wall motion and thick ening. QGS LVEF is >70%. IMPRESSION: 1. Normal study. 2. Appropriate pharmacologic stress. 3. Normal myocardial perfusion. 4. Normal resting LV function. 5. Normal extracardiac tracer distribution. 6. No prior studies available for comparison. Signed: Matthew Glover MDReport Verified Date/Time: 08/23/2019 18:04:54 Reading Location: [place] [id number] Reading Room myocardial perfusion SPECT, pharm(Lexiscan)2019-08-23 18:04:00Interface, External Ris In - 09/05/2019 12:51 PM CSTFINAL REPORT PROCEDURE: Rest/Stress MYOCARDIAL PERFUSION SPECT with regadenoson\\XA9\\ CPT CODE: 56356 INDICATION: Chest pain HISTORY: Cardiac risk factors: Diabetes, hyperlipidemia, early family history of CAD. Other cardiovascular history: No reported CAD. Recent cardiac symptoms: Shortness of breath, chest pain. Current cardiovascular-related medications: Propranolol, Li pitor, aspirin. PROTOCOL: 10.8 mCi of Tc-99m sestamibi was injected iv at r est, and SPECT (tomographic) images were obtained. Also, 32.6 mCi of Tc-99m sest amibi was injected iv at expected peak pharmacologic effect, and gated SPECT shoaib ges were obtained. PRELIMINARY STRESS TEST DATA FROM NONINVASIVE CARDIOLOGY: P harmacologic stress was by 10-second iv infusion of 0.4 mg of regadenoson. Radio tracer was injected 30 seconds after start of stress. Heart rate was 75 beats/mi n at rest and 101 beats/min (59 % of MPHR) at tracer injection. BP was 103/72 mm Hg at rest and 117/67 mmHg at tracer injection. Stress was stopped for predeterm ined endpoint. The patient experienced lightheadedness; treatment was not requir ed. Preliminary ECG evaluation revealed sinus rhythm at rest and was indetermina te due to pharmacological stress. (Final ECG interpretation and other stress and monitoring data are reported separately by Cardiology.) IMAGING FINDINGS: Study quality is good. Images obtained after rest and stress injections show normal LV activity. LV and RV volumes appear normal. Gated images obtained at re st after stress show normal LV wall motion and thickening. QGS LVEF is >70%. IMPRESSION: 1. Normal study. 2. Appropriate pharmacologic stress. 3. Normal myocardial perfusion. 4. Normal resting LV function. 5. Normal extracardiac tracer distribution. 6. No prior studies available for comparison. Signed: aMtthew Glover MDReport Verified Date/Time: 08/23/2019 18:04:54 Reading Location : [address] Reading Room [facility] W/Doppler(CW/PW/Color)2019-08-23 14:39:26Ejection FractionSLEH ECHO HEARTLAB MKCKESSON CPACSInterface, External Ris In - 08/23/2019 2:39 PM CSTTransthoracic Echocardiography Report (TTE) Demographics Patient Name SUZIE MCARTHUR Date of Study 08/23/2019 VIRGIL Gender Female Visit Number [id number] Race Room Number 1463 Number Date of 1970 Referring Physician VIRIDIANA Griggs Age 48 year(s) Supervisor Buffy Kraft [facility] Alumni Relations Coordinator Mary Ann Garcia, Interpreting Pancho Calloway MD [facility] Physician Procedure Type of Study TTE procedure:2DECHO W DOPPLER(CW/PW/COLOR) (Routine) Indications:Shortness of breath.Clinical HistoryHX PE, DM, TIA (2019), CADContrast Medium: Definity.Height: 60 inches Weight: 73.03 kg (161 lbs) BSA: 1.7 m^2 BMI: 31.44 kg/m^2HR: 80 bpm BP: 124/69 mmHg Summary 1. The left ve ntricle is chamber size (by vol index) is normal. No evidence of LV hypertrophy. All of the LV segments are hyperkinetic. LVEF by Gonsalez's method of disk asses sment is increased (>70%). Grade 1 diastolic dysfunction (impaired relaxation and low-normal LA pressure). LA size is normal (16-34 ml/m2) . 2. The right ventricular chamber size and systolic function are within normal limits. RA size is normal. Estimated peak systolic PA pressure is 20-25 mmHg . 3. No significant valvular abnormalities. Previous Study No prior studies available for comparison. Signature -------- Findings Technical Qualit y: Technically adequate exam. Left Ventricle LV endocardium is adequatel y visualized with IV ultrasound enhancing agent. The left ventricle is chamber size (by vol index) is normal (fema le - LVED vol - 29-61ml/m2). No evidence of LV hypertrophy. All of the LV segments are hype rkinetic . Global LV systolic function hyperdynamic . LVE F by Gonsalez's method of disk assessment is increased (> 70%) . Increased (cardiac index 3.5-4.0 L/min/m2) cardiac output state at rest is noted. Grade 1 diastolic dysfunc tion (impaired relaxation and low-normal LA pressure). L eft Atrium LA size is normal (16-34 ml/m2) . Right Ventricle The right ventricular chamber size and systolic function are within normal limits. Right Atrium RA size is normal. Aortic Mariel ve Normal AoV structure and function. Mitral Valve Normal M V structure and function. Trace mitral regurgitation. Tr icuspid Valve TV structure is normal. A trace of t ricuspid regurgitation. Estimated peak systolic PA pressu re is 20-25 mmHg . Peak systolic pressure may be underest imated; partial TR signal. Pulmonic Valve Normal PV structure and function by limited views and Doppler. Aorta Aortic root size (SInus of Valsalva diameter) is normal . Pericardium No pericardial effusion is visu alized. IVC/SVC/PA/PV/Pleural The estimated RA pressure by IVC dynamics 0-5mmH g . Chambers/Structures Left Atrium LA Volume: 30.08 ml LA Area: 12.42 cm^2 LA Vol. Index: 18 ml/m^2 Left Ventricle LVIDd: 4.59 cm LV Sep angelo Diastolic: 0.67 cm LV PW Diastolic: 0.88 cm LVEDV Gonsalez's:63.26 ml LV Length: 6.64 cm LVESV Gonsalez's:15.57 ml LVEF Gonsalez's: 75.4 % LVEDVI: 37 ml/m^2 L VESVI: 9 ml/m^2 LVOT Diameter: 1.95 cm Aorta Ao Root S of Mariel.: 2.79 cm Doppler /Quantitative Measurements Mitral Valve MV Peak E-Wave: 0.65 m/s M V Peak A-Wave: 0.78 m/s E/A Ratio: 0.83 [...] Velocity: 1.99 m/s TR Gradient: 15.84 mmHg [facility] [id number] 14:13:00* Test Item Value Reference Range Interpretation Comments POC-GLUCOSE METER (BEAKER) (test code = 1538) 246 mg/dL 70-110 H : TESTED AT [address], [address]: Documentation Improvement Specialist/Archives Specialist ID = [id number] for Makayla Bazan ECG 12 [id number] 14:03:13Interface, External Ris In - 08/23/2019 2:03 PM CSTVentricular Rate 71 BPMAtrial Rate 71 BPMP-R Interval 160 msQRS Duration 72 msQ-T Interval 428 msQTC Calculation(Bazett) 465 msP [place] 54 degreesR [place] 9 degreesT [place] 41 degreesNormal sinus rhythmLow voltage QRSConfirmed by MD Coe Roberto ([id number]) on 08/23/2019 2:03:10 [facility] [id number] 08:21:00* Test Item Value Reference Range Interpretation Comments POC-GLUCOSE METER (BEAKER) (test code = 1538) 210 mg/dL 70-110 H : TESTED AT [place] [id number] [facility], [address]: Documentation Improvement Specialist/Archives Specialist ID = [id number] for LESLIE SOLANO Troponin [id number] 02:12:00* Test Item Value Reference Range Interpretation Comments Troponin I (test code = 07879-4) <0.01 0-0.03 MICHAEL (test code = MICHAEL) Troponin I (TnI) levels must be interpreted in the context of the presenting symptoms and the clinical findings. Elevated TnI levels indicate myocardial damage, but are not specific for ischemic heart disease. Elevated TnI levels are seen in patients with other cardiac conditions (including myocarditis and congestive heart failure), and slight TnI elevations occur in patients with other conditions, including sepsis, renal failure, acidosis, acute neurological disease, and persistent tachyarrhythmia. Lab Interpretation (test code = 95417-4) Normal [facility] [id number] 02:12:00* Test Item Value Reference Range Interpretation Comments TROPONIN I (RICARDOAKER) (test code = 397) < ng/mL 0.00-0.03 Troponin I (TnI) levels must be interpreted in the context of the presenting sym ptoms and the clinical findings. Elevated TnI levels indicate myocardial damage, but are not specific for ischemic heart disease. Elevated TnI levels are seen in patients with other cardiac conditions (including myocarditis and congestive h eart failure), and slight TnI elevations occur in patients with other conditions , including sepsis, renal failure, acidosis, acute neurological disease, and per sistent tachyarrhythmia.POCT-GLUCOSE [id number] 23:38:00* Test Item Value Reference Range Interpretation Comments POC-GLUCOSE METER (WENDY) (test code = 1538) 274 mg/dL 70-110 H : [facility] [address]OME [address] [facility], [address]: Documentation Improvement Specialist/Archives Specialist ID = [id number] for LG DAVIS CT, CHEST, WITH IV CONTRAST- PE TEST [id number] 19:01:00Reason for exam:-> SHORTNESS OF BREATHReason for exam:->CHEST PAINIs the patient ?->NoWhat is the patient's sedation requirement?->No SedationFINAL REPORT EXAM: CT Chest with intravenous contrast HISTORY: PE suspected, high pretest probSHORTNESS OF BREATHCHEST PAIN COMPARISON: None TECHNIQUE: CT of the chest WITH intravenous contrast (pulmonary embolism protocol). Coronal and sagittal reformations were obtained. Scan was performed during the pulmonary arterial phase. DOSE REDUCTION: The examination was performed according to the departmental dose-optimization program, which includes automated exposure control, adjustment of the mA and/or kV according to patient size and/or use of iterative reconstruction technique. FINDINGS:Limited exam due to contrast bolus timing/streak artifact.LINES and TUBES: None.PULMONARY ARTERIES: Proximal to the bifurcation of the main pulmonary artery, the main pulmonary artery is 2.6 cm in diameter. No filling defects within the main through proximal segmental pulmonary arteries to suggest pulmonary embolus.LUNGS AND A IRWAYS: Right lower lobe 0.3 cm nodule. Scattered atelectasis.PLEURA: The pleura l spaces are clear.HEART AND MEDIASTINUM: The visualized thyroid gland is normal . No significant mediastinal, hilar, or axillary lymphadenopathy. The heart and pericardium are within normal limits.SOFT TISSUES AND BONES: Unremarkable.UPPER ABDOMEN: Right upper quadrant surgical clips. IMPRESSION: 1. No pulmonary embol us within the main through proximal segmental pulmonary arteries. 2. Right lower lobe 0.3 cm lung nodule.Patients at low risk for lung cancer: No routine follow- upPatients at high risk for lung cancer: Optional CT at 12 months (consider fol low-up if suspicious morphology and/or located in upper lobe, otherwise no follo w-up). If stable at 12 months, no further follow-up. Signed: Joseph Dai port Verified Date/Time: 08/22/2019 19:01:53 Reading Location: [address] Reading Room Electronically signed by: JOSEPH DAI DO on 12/2018 07:[address] chest PE test [id number] 19:01:00Interface, External Ris In - 08/22/2019 7:04 PM CSTFINAL REPORT EXAM: CT Chest with intravenous contrast HISTORY: PE suspected, high pretest probSHORTNESS OF BREATHCHEST PAIN COMPARISON: None TECHNIQUE: CT of the chest WITH intravenous contrast (pulmonary embolism protocol). Coronal and sagittal reformations were obtained. Scan was performed during the pulmonary arterial ph ase. DOSE REDUCTION: The examination was performed according to the departmental dose-optimization program, which includes automated exposure control, adjustment of the mA and/or kV according to patient size and/or use of iterative reconstr uction technique. FINDINGS:Limited exam due to contrast bolus ti ashvin/streak artifact.LINES and TUBES: None.PULMONARY ARTERIES: Proximal to the b ifurcation of the main pulmonary artery, the main pulmonary artery is 2.6 cm in diameter. No filling defects within the main through proximal segmental pulmona ry arteries to suggest pulmonary embolus.LUNGS AND AIRWAYS: Right lower lobe 0.3 cm nodule. Scattered atelectasis.PLEURA: The pleural spaces are clear.HEART AND MEDIASTINUM: The visualized thyroid gland is normal. No significant mediastinal, hilar, or axillary lymphadenopathy. The heart and pericardium are within normal limits.SOFT TISSUES AND BONES: Unremarkable.UPPER ABDOMEN: Right upper quadrant surgical clips. IMPRESSION: 1. No pulmonary embolus within the main through p roximal segmental pulmonary arteries. 2. Right lower lobe 0.3 cm lung nodule.Pat ients at low risk for lung cancer: No routine follow-upPatients at high risk for lung cancer: Optional CT at 12 months (consider follow-up if suspicious morphol ogy and/or located in upper lobe, otherwise no follow-up). If stable at 12 zaira hs, no further follow-up. Signed: Joseph Dai MDReport Verified Date/Time: 19:01:53 Reading Location: [address] Consult Reading Room [facility] signed by: JOSEPH DAI DO on 08/22/2019 07:01 PM [facility] [id number] 17:11:00* Test Item Value Reference Range Interpretation Comments TROPONIN I (BEAKER) (test code = 397) < ng/mL 0.00-0.03 Troponin I (TnI) levels must be interpreted in the context of the presenting sym ptoms and the clinical findings. Elevated TnI levels indicate myocardial damage, but are not specific for ischemic heart disease. Elevated TnI levels are seen in patients with other cardiac conditions (including myocarditis and congestive h eart failure), and slight TnI elevations occur in patients with other conditions , including sepsis, renal failure, acidosis, acute neurological disease, and per sistent tachyarrhythmia.Basic Metabolic [id number] 17:10:00* Test Item Value Reference Range Interpretation Comments Sodium (test code = 2951-2) 135 meq/L 136-145 L Potassium (test code = 2823-3) 3.4 meq/L 3.5-5.1 L Specimen slightly hemolyzed Chloride (test code = 5-0) 99 meq/L 98-107 CO2 (test code = 8-9) 28 meq/L 22-29 BUN (test code = 3094-0) 7 mg/dL 7-21 Creatinine (test code = 2160-0) 0.70 mg/dL 0.57-1.25 Specimen slightly hemolyzed Glucose (test code = 2345-7) 240 mg/dL 70-105 H Calcium (test code = 81531-2) 8.8 mg/dL 8.4-10.2 EGFR (test code = 37023-9) 89 mL/min/1.73 sq m ESTIMATED GFR IS NOT ACCURATE CREATININE CLEARANCE IN PREDICTING GLOMERULAR FILTRATION RATE. ESTIMATED GFR IS NOT APPLICABLE FOR DIALYSIS PATIENTS. Lab Interpretation (test code = 29226-5) Abnormal [facility] (BNP)2019-08-22 17:10:00 * Test Item Value Reference Range Interpretation Comments BNP (test code = 75815-6) 27 pg/mL 0-100 Lab Interpretation (test code = 29773-0) Normal [facility] NATRIURE[facility] FACTOR (BNP)2019-08-22 17:10:00 * Test Item Value Reference Range Interpretation Comments B-TYPE NATRIURETIC PEPTIDE (BEAKER) (test code = 700) 27 pg/mL 0-100 BASIC METABOLIC [id number] 17:10:00* Test Item Value Reference Range Interpretation Comments SODIUM (BEAKER) (test code = 381) 135 meq/L 136-145 L POTASSIUM (BEAKER) (test code = 379) 3.4 meq/L 3.5-5.1 L Specimen slightly hemolyzed CHLORIDE (BEAKER) (test code = 382) 99 meq/L 98-107 CO2 (BEAKER) (test code = 355) 28 meq/L 22-29 BLOOD UREA NITROGEN (BEAKER) (test code = 354) 7 mg/dL 7-21 CREATININE (BEAKER) (test code = 358) 0.70 mg/dL 0.57-1.25 Specimen slightly hemolyzed GLUCOSE RANDOM (BEAKER) (test code = 652) 240 mg/dL 70-105 H CALCIUM (BEAKER) (test code = 697) 8.8 mg/dL 8.4-10.2 EGFR (BEAKER) (test code = 1092) 89 mL/min/1.73 sq m ESTIMATED GFR IS NOT ACCURATE CREATININE CLEARANCE IN PREDICTING GLOMERULAR FILTRATION RATE. ESTIMATED GFR IS NOT APPLICABLE FOR DIALYSIS PATIENTS. ECG/EKG [id number] 17:00:21Cody Patterson MD 08/22/2019 6:35 PMECG/EKG InterpretationDate/Time: 08/22/2019 4:12 PMPerformed by: Cody Patterson MDAuthorized by: Cody Patterson MD The ECG was interpreted by ED physician. This ECG was compared with previous ECG(s).The ECG is interpreted as sinus rhythm. Rate is normal rate. Conduction: conduction normal. ST segments normal. T waves abnormal. Other findings: no other findings. Clinical Impression: normal ECGECG reviewed and does not meet STEMI criteria. Patient tolerance: Patient tolerated the procedure well with no immediate complications [facility] CBC with platelet count + automated [id number] 16:47:00* Test Item Value Reference Range Interpretation Comments WBC (test code = 6690-2) 9.4 3.5- 10.5 K/L RBC (test code = 789-8) 4.77 3.93- 5.22 M/L MCHC (test code = 786-4) 33.5 32.2- 35.5 GM/DL Hematocrit (test code = 4544-3) 43.6 % 34.1-44.9 MCV (test code = 787-2) 91.4 fL 79.4-94.8 MCH (test code = 785-6) 30.6 pg 25.6-32.2 RDW (test code = 788-0) 12.4 % 11.7-14.4 Platelets (test code = 777-3) 324 150- 450 K/CU MM MPV (test code = 44190-3) 10.0 fL 9.4-12.3 % Neutros (test code = 429) 65 % % Lymphs (test code = 430) 23 % % Monos (test code = 431) 8 % % Eos (test code = 432) 3 % % Baso (test code = 437) 1 % # Neutros (test code = 670) 6.09 1.56- 6.13 K/L # Lymphs (test code = 414) 2.19 1.18- 3.74 K/L # Monos (test code = 415) 0.76 0.24- 0.36 K/L H # Eos (test code = 416) 0.25 0.04- 0.36 K/L # Baso (test code = 417) 0.06 0.01- 0.08 K/L Immature Granulocytes-Relative (test code = 2801) 0 % 0-1 Lab Interpretation (test code = 51613-8) [facility]normal [facility] & AUTO [id number] 16:47:00* Test Item Value Reference Range Interpretation Comments WHITE BLOOD CELL COUNT (BEAKER) (test code = 775) 9.4 K/ L 3.5- 10.5 RED BLOOD CELL COUNT (BEAKER) (test code = 761) 4.77 M/ L 3.93-5 .22 HEMOGLOBIN (BEAKER) (test code = 410) 14.6 GM/DL 11.2-15.7 HEMATOCRIT (BEAKER) (test code = 411) 43.6 % 34.1-44.9 MEAN CORPUSCULAR VOLUME (BEAKER) (test code = 753) 91.4 fL 79. 4-94.8 MEAN CORPUSCULAR HEMOGLOBIN (BEAKER) (test code = 751) 30.6 pg 25.6-32.2 MEAN CORPUSCULAR HEMOGLOBIN CONC (BEAKER) (test code = 752) 33.5 GM/DL 32.2-35.5 RED CELL DISTRIBUTION WIDTH (BEAKER) (test code = 412) 12.4 % 11.7-14.4 PLATELET COUNT (BEAKER) (test code = 756) 324 K/CU MM 150-450 MEAN PLATELET VOLUME (BEAKER) (test code = 754) 10.0 fL 9.4-12 .3 NEUTROPHILS RELATIVE PERCENT (BEAKER) (test code = 429) 65 % LYMPHOCYTES RELATIVE PERCENT (BEAKER) (test code = 430) 23 % MONOCYTES RELATIVE PERCENT (BEAKER) (test code = 431) 8 % EOSINOPHILS RELATIVE PERCENT (BEAKER) (test code = 432) 3 % BASOPHILS RELATIVE PERCENT (BEAKER) (test code = 437) 1 % NEUTROPHILS ABSOLUTE COUNT (BEAKER) (test code = 670) 6.09 K/ L 1.56-6.13 LYMPHOCYTES ABSOLUTE COUNT (BEAKER) (test code = 414) 2.19 K/ L 1.18-3.74 MONOCYTES ABSOLUTE COUNT (BEAKER) (test code = 415) 0.76 K/ L 0. 24-0.36 H EOSINOPHILS ABSOLUTE COUNT (BEAKER) (test code = 416) 0.25 K/ L 0.04-0.36 BASOPHILS ABSOLUTE COUNT (BEAKER) (test code = 417) 0.06 K/ L 0. 01-0.08 IMMATURE GRANULOCYTES-RELATIVE PERCENT (BEAKER) (test code = 2801) 0 % 0-1 POCT-GLUCOSE [id number] 16:31:00* Test Item Value Reference Range Interpretation Comments POC-GLUCOSE METER (BEAKER) (test code = 1538) 234 mg/dL 70-110 H : TESTED AT [address] [address]: Documentation Improvement Specialist/Archives Specialist ID = [id number] for SUSANNAH HERNANDEZ, [id number] 15:48:00Reason for Exam:->chronic midline low back pain with bilateral sciaticaFINAL REPORT Exam: Lumbar spine AP lateral oblique flexion extension and sacrum two views History: Pain Comparison: None. Findings: No fracture or malalignment. Multilevel degenerative endplate change throughout the lumbar spine without significant narrowing. Facet arthrosis L4-5 L5-S1. No abnormal soft tissue calcification or soft tissue defect. Impression: No acute osseous abnormality Mild multilevel spondylosis and lower lumbar facet arthrosis Signed: Domencio Child Verified Date/Time: 07/02/2019 15:48:50 Reading Location: [facility] Reading Room [address] [place] [address] , SPINE, LUMBAR, COMPLETE, WITH [id number] 15:48:00Reason for Exam:-> chronic midline low back pain with bilateral sciaticaFINAL REPORT Exam: Lumbar spine AP lateral oblique flexion extension and sacrum two views History: Pain Comparison: None. Findings: No fracture or malalignment. Multilevel degenerative endplate change throughout the lumbar spine without significant narrowing. Facet arthrosis L4-5 L5-S1. No abnormal soft tissue calcification or soft tissue defect. Impression: No acute osseous abnormality Mild multilevel spondylosis and lower lumbar facet arthrosis Signed: Domenico Child Verified Date/Time: 07/02/2019 15:48:50 Reading Location: [facility] Reading Room [address] [place] [address] lumbar spine comp with flex & ext 2019-07-02 15:48:00Interface, External Ris In - 07/02/2019 3:51 PM CDTFINAL REPORT Exam: Lumbar spine AP lateral oblique flexion extension and sacrum two views History: Pain Comparison: None. Findings: No fracture or malalignment. Multilevel degenerative endplate change throughout the lumbar spine without significant narrowing. Facet arthrosis L4-5 L5-S1. No abnormal soft tissue calcification or soft tissue defect. Impression: No acute osseous abnormality Mild multilevel spondylosis and lower lumbar facet arthrosis Signed: Domenico Child Verified Date/Time: 07/02/2019 15:48:50 Reading Location: [facility] Reading Room [address] [place] [address] [facility] XR sacrum and coccyx 3 views [id number] 15:48:00Interface, External Ris In - 07/02/2019 3:51 PM CDTFINAL REPORT Exam: Lumbar spine AP lateral oblique flexion extension and sacrum two views History: Pain Comparison: None. Findings: No fracture or malalignment. Multilevel degenerative endplate change throughout the lumbar spine without significant narrowing. Facet arthrosis L4-5 L5-S1. No abnormal soft tissue calcification or soft tissue defect. Impression: No acute osseous abnormality Mild multilevel spondylosis and lower lumbar facet arthrosis Signed: Domenico Child Verified Date/Time: 07/02/2019 15:48:50 Reading Location: [facility] Reading Room [address] [place] [address] [facility] 13:05:00* Test Item Value Reference Range Interpretation Comments GLUBED (test code = GLUBED) 227 mg/dL 74-106 H Performed by certified beater machine operator at [facility] [id number] 05:19:00* Test Item Value Reference Range Interpretation Comments GLUBED (test code = GLUBED) 162 mg/dL 74-106 H Performed by certified beater machine operator at [facility] [id number] 20:48:00* Test Item Value Reference Range Interpretation Comments GLUBED (test code = GLUBED) 99 mg/dL 74-106 N Performed by certified beater machine operator at [facility] HGB [id number] 18:57:00* Test Item Value Reference Range Interpretation Comments HEMOGLOBIN (test code = HGB) 13.4 gram/dL 11.5-15.5 N HEMATOCRIT (test code = HCT) 40.1 % 36.0-46.0 N - MRI BRAIN W/O [id number] 18:04:00 FAX: Edil Cortez MD [place]: St: ADM Name: SUZIE WELSH [facility] : [birth year] Age/S: 48/F [address] Unit #: [id number] Loc: V.[address] [place] [address] Phys: Edil Cortez MD Acct: [id number] Dis Date: Status: ADM IN PHONE #: [phone] Exam Date: 05/04/2019 1717 FAX #: [phone] Reason: eval cva EXAMS: CPT CODE: [id number] MRI BRAIN W/O CONTRAST 07351 REASON FOR EXAM: eval cva Exam Order Date: 05/04/2019 5:22 AM Attending M.DAnna: Edil heredia MD Procedure: - MRI BRAIN W/O CONTRAST Comp arison: FINDINGS: Axial, sagittal, and coronal images of the head were obtained using T1, T2 weighted, inversion recovery, and gradient echo sequences. The diffusion images are within normal limits without a bnormal signal intensity to suggest acute infarct. No IV gadolinium was gi david. The sagittal images show normal pituitary, cerebellum, and br ain stem. No evidence of suprasellar mass. The axial T2, inv ersion recovery, and gradient echo images show no evidence of intra or ext ra axial mass. The ventricles, cisterns, and sulci are unremarkable. No ev idence of hemorrhage. The cerebellar pontine angle area is within normal limits. There is no evidence of mass noted. The axial T1 images show no evidence of mass. No evidence of old infarct. The coronal images show normal optic chiasm. IMPRESSION: Unremarkable brain. at 1805 Reported and signed by: Phong bah M.D. CC: Edil Cortez MD Technol ogist: NANDO SINGH,RT - MRI Trnarrd Date/Time/ By: 05/04/2019 (7949) : By: VicikVTL Orig Print D/T: S: 05/04/2019 (8 985) PAGE 1 Signed Report - MRA HD W/O [id number] 18:02:00 FAX: Edil Cortez MD [place]: B St: ADM Name: SUZIE WELSH [facility] : [birth year] Age/S: 48/F [address] [facility] Unit #: [id number] Loc: V.[address] [place] [address] Phys: Edil Cortez MD Acct: [id number] Dis Date: Status: ADM IN PHONE #: [phone] Exam Date: 05/04/20191744 FAX #: [phone] Reason: eval cva EXAMS: CPT CODE: [id number] MRA HD W/O CONT 85363 REASON FOR EXAM: eval cva EXAM ORDER DATE: 05/04/2019 5:22 AM Ordering Beny: Edil Cortez MD PROCEDURE: - MRA HD W/O CONT FIND INGS: 3-D soqp-xc-oqwngu images of the head were obtained without IV contr ast using MR angiogram protocol The anterior, middle, and posterio r cerebral arteries are unremarkable. The ICAs are within normal limits. The basilar artery is unremarkable. IMPRESSION: Unremarka ble cerebral angiogram at 1802 Reported and signed b y: Phong Braden M.D. CC: Edil Cortez MD Technologist: NANDO SINGHRT - [facility] Date/Time/By: 05/04/2019 (1801) : By: Prem Orig Print D/T: S: 05/04/2019 (1804) PAGE 1 Signed Report - MRA NECK W/O [id number] 18:02:00 FAX: Edil Cortez MD [place]: B St: ADM Name: SUZIE WELSH [facility] : [birth year] 67 Age/S: 48/F [address] [facility] Unit #: [id number] Loc: V.[address] [place] [address] Phys: Edil Cortez MD Acct: [id number] Dis Date: Status: ADM IN PHONE #: [phone] Exam Date: 05/04/2019 9937 FAX #: [phone] Reason: eval cva EXAMS: CPT CODE: [id number] MRA NECK W/O CONT 21429 REASON FOR EXAM: eval cva EXAM ORDER DATE: 05/04/2019 5:22 AM Ordering Beny: Edil Cortez MD PROCEDURE: - MRA NECK W/O CONT FI NDINGS: 2-D tumz-nc-cyyrzm images of the neck were obtained without IV con trast using MR angiogram protocol The carotid arteries are unremar kable. The vertebral arteries are within normal limits. No evidence of s tenosis or dissection. IMPRESSION: Unremarkable cervical angiogr am Electronically Signed by Beny Braden on 04/19 at 1802 Reported and signed by: Phong Braden M.D. CC: Edil Cortez MD chnologist: NANDO SINGH,RT - [facility] Date/ Time/By: 05/04/2019 (1801) : By: VickiVTL Orig Print D/T: S: 05/04/20 19 (018) PAGE 1 Signed Report [id number] 17:46:00* Test Item Value Reference Range Interpretation Comments GLUBED (test code = GLUBED) 256 mg/dL 74-106 H Performed by certified beater machine operator at [facility] AB [id number] 14:38:00* Test Item Value Reference Range Interpretation Comments AB TREPONEMA (test code = TREPAB) Nonreactive Index NonReactive [id number] 14:00:00* Test Item Value Reference Range Interpretation Comments GLUBED (test code = GLUBED) 293 mg/dL 74-106 H Performed by certified beater machine operator at [facility] HGB [id number] 13:33:00* Test Item Value Reference Range Interpretation Comments HEMOGLOBIN (test code = HGB) 13.2 gram/dL 11.5-15.5 N HEMATOCRIT (test code = HCT) 40.3 % 36.0-46.0 N [id number] 11:20:00* Test Item Value Reference Range Interpretation Comments TROPONIN-I (test code = TROPI) <0.015 ng/mL 0-0.045 N [id number] 11:01:00* Test Item Value Reference Range Interpretation Comments GLYCOSYLATED HEMOGLOBIN (HA1C) (test code = GLYHGB) 11.7 % HbA1 4. 8-6.0 H ESTIMATED AVERAGE GLUCOSE (test code = EAG) 289 MG/DL GIVEN TO EDMAR/REENA FOR REDRAW. V.LAB.CF2 298801 - CTA [id number] 10:54:00 Name: SUZIE MCARTHUR [facility] : 1970 Age/S: 48 / F [address] Unit #: [id number] Loc: [place] [address] Phys: Edil Cortez MD Acct: [id number] Dis Date: Status: ADM IN PHONE #: [phone] Exam Date: 05/04/2019 1031 FAX #: [phone] Reason: eval PE/SOB EXAMS: CPT CODE: [id number] CTA CHEST 44802 REASON FOR EXAM: eval PE/SOB EXAM ORDER DATE: 05/04/2019 6:20 AM Ordering M.D.: Edil Cortez MD PROCEDURE: - CTA CHEST Comparison:Frontal chest x-ray earlier the same day at 1:[address] images of the chest were obtained following the administration of IV contrast using a PE protocol. Reconstructed sagittal and coronal images of the chest were provided for interpretation. Dose reduction techniques were applied. FINDINGS: Visualized neck: Grossly normal. Airways, Lungs and Pleura: There is mild subsegmental atelectasis in the lingula and in the dependent lower lobes. Airways are patent. No pleural abnormality. Heart, great vessels, pulmonary vessels, mediastinum: No pulmonary embolus is appreciated. No evidence of right heart strain. No significant coronary or aortic atherosclerosis. Pulmonary trunk and aorta are normal in caliber. No filling defects in the thoracic aorta. Lymph nodes: No axillary, internal mammary, hilar, or mediastinal adenopathy. Musculoskeletal/chest wall: Mild degenerative changes are present in the spine and Visualized upper abdomen: No acute abnormalities. IMPRESSION: No pulmonary embolus or evidence of right heart strain or elevated pulmonary arterial pressures. Mild subsegmental atelectasis in the lower lobes and in the lingula. PAGE 1 Signed Report (CONTINUED) Name: SUZIE MCARTHUR [facility] : 1970 Age/S: 48 / F [address] Unit #: [id number] Loc: [place] [address] Phys: Edil Cortez MD Acct: [id number] Dis Date: Status: ADM IN PHONE #: [phone] Exam Date: 05/04/2019 1031 FAX #: [phone] Reason: eval PE/SOB EXAMS: CPT CODE: [id number] CTA CHEST 73885 < Continued> at 1054 Reported and signed by: Nathan Hoffmann MD CC: Edil Cortez MD Technologist:Power Carrasco RT(R),(MR),(CT) CTDI: DLP: Trnscb Date/Time: 05/04/2019 (2776) [email or web address] Orig Print D/T: S: 05/04/2019 (4090) PAGE 2 Signed Report DRUGS OF ABUSE SCREEN [id number] 09:09:00* Test Item Value Reference Range Interpretation Comments UA PH DIPSTICK (test code = ENID) 7.0 5.0-8.0 URN COCAINE (test code = COCAURN) NEGATIVE <300 ng/mL URN CANNABINOIDS (test code = CANNABURN) NEGATIVE <50 ng/mL URN AMPHETAMINE (test code = AMPHETURN) NEGATIVE <1000 ng/mL URN BARBITURATE (test code = BARBITURN) NEGATIVE <200 ng/mL URN BENZODIAZEPINE (test code = BENZOURN) NEGATIVE <200 ng/mL URN OPIATES (test code = OPIATURN) NEGATIVE <300 ng/mL URN PHENCYCLIDINE (PCP) (test code = PHENCURN) NEGATIVE <25 ng/ mL URN METHADONE (test code = METHAURN) NEGATIVE <300 ng/mL DRUGS OF ABUSE SCREEN [id number] 09:02:00* Test Item Value Reference Range Interpretation Comments UA PH DIPSTICK (test code = ENID) 7.0 5.0-8.0 URN COCAINE (test code = COCAURN) <300 ng/mL URN CANNABINOIDS (test code = CANNABURN) <50 ng/mL URN AMPHETAMINE (test code = AMPHETURN) <1000 ng/mL URN BARBITURATE (test code = BARBITURN) <200 ng/mL URN BENZODIAZEPINE (test code = BENZOURN) <200 ng/mL URN OPIATES (test code = OPIATURN) <300 ng/mL URN PHENCYCLIDINE (PCP) (test code = PHENCURN) <25 ng/ mL URN METHADONE (test code = METHAURN) <300 ng/mL LIPID PROFILE (CORONARY RISK)2019-05-04 08:45:00* Test Item Value Reference Range Interpretation Comments TRIGLYCERIDES (test code = TRIG) 180 mg/dL 20-150 H CHOLESTEROL (test code = CHOL) 220 mg/dL 0-200 H CHOLESTEROL/HDL RATIO (test code = CHOLHDL) 5.0 RATIO 0-4.9 H RISK ASSOCIATED WITH CHOL/HDL RATIOS: Risk Male Female1/2 AVERAGE 3.43 3.27AVERAGE 4.97 4.442X AVERAGE 9.55 7.053X AVERAGE 23.39 11.04 REFERENCE VALUE IS RELATED TO RISK LEVELS ASRECOMMENDED BY THE ISA[facility]. HEART, LUNG, AND BLOOD INST. HDL CHOLESTEROL (test code = HDL) 44 mg/dL 40-60 N LIPOPROTEIN LDL (test code = LDL) 156 mg/dL 100-129 H RN PERSONNEL, CONTACT PHYSICIAN IMMEDIATELY IF THIS IS A STROKE, AMI OR CAROTID STENOSIS PATIENT WHEN THE LDL >100 (1ST OCCURENCE, THIS ADMISSION) Reference Interval: mg/dL mmol/L Optimal <100 <2.6Near/above optimal 100-129 2.6- 3.3Borderline High 130-159 3.4-4.1High 160-189 4.1-4.9Very High >=190 >=4.9========= This LDL result is a direct measurement.========= THYROID STIMULATING [id number] 08:45:00* Test Item Value Reference Range Interpretation Comments THYROID STIMULATING HORMONE (test code = TSH) 1.230 uIU/mL 0.36-3.7 4 N TSH REFERENCE RANGES: EUTHYROID: 0.35 - 4.3 mIU/mL HYPO : > 5.5 mIU/mL HYPER : < 0.35 mIU/mL [id number] 08:33:00* Test Item Value Reference Range Interpretation Comments TROPONIN-I (test code = TROPI) <0.015 ng/mL 0-0.045 N [id number] 05:50:00* Test Item Value Reference Range Interpretation Comments GLUBED (test code = GLUBED) 237 mg/dL 74-106 H Performed by certified beater machine operator at [facility] - CT HEAD/BRAIN W/O [id number] 01:43:00 Name: SUZIE MCARTHUR [facility] FSED : 1970 Age/S: 48 / F [address] [facility] Unit #: [id number] Loc: [address] Phys: Montana Lewis MD [place], [place] [address] Acct: [id number] Dis Date: Status: REG ER PHONE #: Exam Date: 05/04/2019 0137 FAX #: Reason: Altered Mental Status EXAMS: CPT CODE: [id number] CT HEAD/BRAIN W/O CONT 23332 AFTER HOURS SERVICE ON: 05/04/2019 1:[address] Scan of the Brain Without Contrast Location Code M12 History: Altered Mental Status Technique: Scans were performed on a helical scanner pre IV contrast only. The study is limited secondary to lack of intravenous contrast, particularly for evaluation of masses. One or more of the following dose reduction techniques were used: Automated exposure control, adjustment of the mA and/or kV according to patient size, and/or utilization of iterative reconstruction technique. Findings: There is no hydrocephalus. Basal cisterns are patent. There is no intracranial hy perdense hemorrhage. There is no midline shift or mass effect. No effaceme nt of the long-white matter junction to indicate acute infarction. Impression: No acute intracranial CT findings. at 0143 Reported and signed by: Troy Mares M.D. CC: Montana Lewis MD Technologist:Elizabeth Zacarias CTDI: DLP: Trnscb Date/Time: 05/04/2019 (0143) [id number] Orig Print D/T: S: 05/04/2019 (0146) PAGE 1 Signed Report - XR CHEST 1 [id number] 01:39:00 FAX: Montana Lewis [phone] [place]: [place] St: REG Name: SUZIE WELSH [facility] FSED : [birth year] Age/S: 48/F [address] [facility] [address] Unit #: [id number] Loc: [facility] [address] Phys: Montana Lewis MD [place], [place] [address] Acct: [id number] Dis Date: Status: REG ER PHONE #: Exam Date: 05/04/2019 0137 FAX #: Reason: Altered Mental Status EXAMS: CPT CODE: [id number] XR CHEST 1 V 27654 Dictation location: H37. CHEST, FRONTAL VIEW HISTORY: Altered Mental Status COMPARISON: Chest x-ray 12/01/17. FINDI NGS: The lungs are clear without consolidation. No pleural effusi on or pneumothorax. The heart size is normal. Mild degenerative changes affect the thoracic spine. IMPRESSION: No evidence of acute cardiopulmonary disease. Electronically Si gned by Linda Islas M.D. on 05/04/2019 at 01 39 Reported and signed by: Linda del valle M.D. CC: Montana Lewis MD Technologist: Elizabeth Matias [email or web address] Date/Time/By: 05/04/2019 (0139) : By: [email or web address] Orig Print D/T: S: 05/04/2019 (0145) PAGE 1 Sign ed Report BASIC METABOLIC [id number] 01:36:00 * Test Item Value Reference Range Interpretation Comments SODIUM (test code = NA) 136 mmol/L 128-145 N POTASSIUM (test code = K) 4.2 mmol/L 3.5-5.1 N CHLORIDE (test code = CL) 99.0 mmol/L 98-107 N CARBON DIOXIDE (test code = CO2) 26.8 mmol/L 22-29 N ANION GAP (test code = GAP) 14 mmol/L 10-20 N GLUCOSE (test code = GLU) 374 mg/dL 70-110 H BLOOD UREA NITROGEN (test code = BUN) 12 mg/dL 7-22 N GLOMERULAR FILTRATION RATE (test code = GFR) > 60 mL/min >=60 Estimated GFR by using Modified MDRD formula.Chronic kidney disease is defined as either kidney damageor GFR <60 mL/min/1.73 m2 for >3 months. CREATININE (test code = CREAT) 0.81 mg/dL 0.55-1.3 N BUN/CREATININE RATIO (test code = BUN/CREA) 14.8 10-20 N CALCIUM (test code = CA) 8.8 mg/dL 8.0-10.5 N HEPATIC FUNCTION [id number] 01:36:00* Test Item Value Reference Range Interpretation Comments TOTAL PROTEIN (test code = PROT) 6.9 gram/dL 6.1-7.8 N ALBUMIN (test code = ALB) 3.6 g/dL 3.3-4.4 N GLOBULIN (test code = GLOB) 3.3 G/DL 1-10 N ALBUMIN/GLOBULIN RATIO (test code = A/G) 1.1 0.75-1.50 N BILIRUBIN TOTAL (test code = BILT) 0.40 mg/dL 0.2-1.2 N BILIRUBIN DIRECT (test code = BILD) 0.10 mg/dL 0.0-0.30 N SGOT/AST (test code = AST) 12 U/L 10-39 N SGPT/ALT (test code = ALT) 26 U/L 10-69 N ALKALINE PHOSPHATASE TOTAL (test code = ALKP) 72 U/L 50-139 N [id number] 01:36:00* Test Item Value Reference Range Interpretation Comments TROPONIN-I (test code = TROPI) <0.015 ng/mL 0.00-0.056 N URINALYSIS [id number] 01:29:00* Test Item Value Reference Range Interpretation Comments UA COLOR (test code = COLU) STRAW YELLOW UA APPEARANCE (test code = APPU) HAZY CLEAR A UA GLUCOSE DIPSTICK (test code = DGLUU) 300-500 (3+) mg/dL NEGATIVE UA BILIRUBIN DIPSTICK (test code = BILU) NEGATIVE NEGATIVE UA KETONE DIPSTICK (test code = KETU) TRACE mg/dL NEGATIVE UA SPECIFIC GRAVITY (test code = SGU) 1.010 1.001-1.035 UA BLOOD DIPSTICK (test code = BRODY) TRACE NEGATIVE UA PH DIPSTICK (test code = ENID) 7.0 5.0-8.0 UA PROTEIN DIPSTICK (test code = PROU) NEGATIVE mg/dL Neg-15 UA UROBILINIOGEN DIPSTICK (test code = URO) 0.2 mg/dL 0.0-0.2 UA NITRITE DIPSTICK (test code = FACUNDO) NEGATIVE NEGATIVE UA LEUKOCYTE ESTERASE DIPSTICK (test code = LEUU) NEGATIVE uL NEGA TIVE UA MICROSCOPIC NEEDED? (test code = UAMICRO) YES UA WBC (test code = WBCU) 0-5 per HPF 0-5 UA RBC (test code = RBCU) 0-3 per HPF 0-5 UA EPITHELIAL CELLS (test code = EPIU) Few (2-5/hpf) per HPF Few UA BACTERIA (test code = BACU) MANY per HPF NONE A Urine Source? Clean CatchBASIC METABOLIC [id number] 01:24:00* Test Item Value Reference Range Interpretation Comments SODIUM (test code = NA) 136 mmol/L 128-145 N POTASSIUM (test code = K) 4.2 mmol/L 3.5-5.1 N CHLORIDE (test code = CL) 99.0 mmol/L 98-107 N CARBON DIOXIDE (test code = CO2) 26.8 mmol/L 22-29 N ANION GAP (test code = GAP) 14 mmol/L 10-20 N GLUCOSE (test code = GLU) 374 mg/dL 70-110 H BLOOD UREA NITROGEN (test code = BUN) 12 mg/dL 7-22 N GLOMERULAR FILTRATION RATE (test code = GFR) > 60 mL/min >=60 Estimated GFR by using Modified MDRD formula.Chronic kidney disease is defined as either kidney damageor GFR <60 mL/min/1.73 m2 for >3 months. CREATININE (test code = CREAT) 0.81 mg/dL 0.55-1.3 N BUN/CREATININE RATIO (test code = BUN/CREA) 14.8 10-20 N CALCIUM (test code = CA) 8.8 mg/dL 8.0-10.5 N HEPATIC FUNCTION [id number] 01:24:00* Test Item Value Reference Range Interpretation Comments TOTAL PROTEIN (test code = PROT) gram/dL 6.4-8.2 ALBUMIN (test code = ALB) g/dL 3.4-5.0 GLOBULIN (test code = GLOB) G/DL 1-10 ALBUMIN/GLOBULIN RATIO (test code = A/G) 0.75-1.50 BILIRUBIN TOTAL (test code = BILT) mg/dL 0.0-1.0 BILIRUBIN DIRECT (test code = BILD) mg/dL 0.0-0.20 SGOT/AST (test code = AST) IUnit/L 15-37 SGPT/ALT (test code = ALT) IUnit/L 12-78 ALKALINE PHOSPHATASE TOTAL (test code = ALKP) IUnit/L 45-117 [id number] 01:24:00* Test Item Value Reference Range Interpretation Comments TROPONIN-I (test code = TROPI) ng/mL 0-0.045 URINALYSIS [id number] 01:21:00* Test Item Value Reference Range Interpretation Comments UA COLOR (test code = COLU) STRAW YELLOW UA APPEARANCE (test code = APPU) HAZY CLEAR A UA GLUCOSE DIPSTICK (test code = DGLUU) 300-500 (3+) mg/dL NEGATIVE UA BILIRUBIN DIPSTICK (test code = BILU) NEGATIVE NEGATIVE UA KETONE DIPSTICK (test code = KETU) TRACE mg/dL NEGATIVE UA SPECIFIC GRAVITY (test code = SGU) 1.010 1.001-1.035 UA BLOOD DIPSTICK (test code = BRODY) TRACE NEGATIVE UA PH DIPSTICK (test code = ENID) 7.0 5.0-8.0 UA PROTEIN DIPSTICK (test code = PROU) NEGATIVE mg/dL Neg-15 UA UROBILINIOGEN DIPSTICK (test code = URO) 0.2 mg/dL 0.0-0.2 UA NITRITE DIPSTICK (test code = FACUNDO) NEGATIVE NEGATIVE UA LEUKOCYTE ESTERASE DIPSTICK (test code = LEUU) NEGATIVE uL NEGA TIVE UA MICROSCOPIC NEEDED? (test code = UAMICRO) UA WBC (test code = WBCU) per HPF 0-5 UA RBC (test code = RBCU) per HPF 0-5 UA EPITHELIAL CELLS (test code = EPIU) per HPF Few UA BACTERIA (test code = BACU) per HPF NONE Urine Source? Clean CatchCBC W/AUTO [id number] 01:18:00* Test Item Value Reference Range Interpretation Comments WHITE BLOOD CELL (test code = WBC) 7.6 K/mm3 4.5-12.5 N RED BLOOD CELL (test code = RBC) 4.84 mill/mm3 3.7-5.2 N HEMOGLOBIN (test code = HGB) 14.7 gram/dL 11.5-15.5 N HEMATOCRIT (test code = HCT) 44.3 % 36.0-46.0 N MEAN CELL VOLUME (test code = MCV) 91.5 fL 80-98 N MEAN CELL HGB (test code = MCH) 30.4 picogram 27.0-33.0 N MEAN CELL HGB CONCETRATION (test code = MCHC) 33.2 gram/dL 33.0-36. 0 N RED CELL DISTRIBUTION WIDTH (test code = RDW) 12.6 % 11.6-16. 2 N RED CELL DISTRIBUTION WIDTH SD (test code = RDW-SD) 42.9 fL 37 .0-51.0 N PLATELET COUNT (test code = PLT) 285 K/mm3 150-450 N MEAN PLATELET VOLUME (test code = MPV) 9.6 fL 6.7-11.0 N NEUTROPHIL % (test code = NT%) 51.0 % 39.0-69.0 N LYMPHOCYTE % (test code = LY%) 35.5 % 25.0-55.0 N MONOCYTE % (test code = MO%) 9.7 % 0.0-10.0 N EOSINOPHIL % (test code = EO%) 2.8 % 0.0-5.0 N BASOPHIL % (test code = BA%) 0.5 % 0.0-1.0 N NEUTROPHIL # (test code = NT#) 3.85 K/mm3 1.8-7.7 N LYMPHOCYTE # (test code = LY#) 2.68 K/mm3 1.0-5.0 N MONOCYTE # (test code = MO#) 0.73 K/mm3 0-0.8 N EOSINOPHIL # (test code = EO#) 0.21 K/mm3 0.0-0.5 N BASOPHIL # (test code = BA#) 0.04 K/mm3 0.0-0.2 N MANUAL DIFF REQUIRED (test code = MDIFF) NO TISSUE [id number] 13:31:00Surgical Pathology Report Case: [id number] Authorizing Provider: Damaris Mckeon MD Collected: 03/06/2019 1349 Ordering Location: [facility] ENDOSCOPY Received: 03/06/2019 1641 SERVICES Pathologist: Jodi Randall MD Specimens: A) - Biopsy, Gastric, RANDOM, R/O H PYLORI B) - Polyp, Gastric, POLYP C) - Distal Esophagus, R/O DYSPHAGIA D) - Proximal Esophagus, R/O DYSPHAGIA A. GASTRIC, RANDOM BIOPSY: - GASTRIC BODY AND JUNCTIONAL TYPE MUCOSA WITH NO SIGNIFICANT HISTOPATHOLOGICAL CHANGE - WARTHIN- STARRY STAIN NEGATIVE FOR H. PYLORI-LIKE ORGANISMS B. GASTRIC POLYP, BIOPSY: - GASTRIC FUNDIC GLAND POLYP - WARTHIN-STARRY STAIN NEGATIVE FOR H. PYLORI-LIKE ORGANISMS C. DISTAL ESOPHAGUS, BIOPSY: - ESOPHAGEAL SQUAMOUS MUCOSA WITH MILD BASAL CELL HYPERPLASIA, INCREASED INTRAEPITHELIAL LYMPHOCYTES WITH FEW EOSINOPHILS UP TO 2 TO 3 PER HPF. - SEE COMMENTD. PROXIMAL ESOPHAGUS, BIOPSY: - ESOPHAGEAL SQUAMOUS MUCOSA WITH MILD REACTIVE CHANGES - SEE COMMENTSJ/pl Signing Pathologist Direct Phone Line: [phone] signed by Jodi Randall MD on 03/07/2019 at 1:31 PMParts C and D are suggestive of more reflux-associated changes. Endoscopic report reviewed. [id number] x4;[id number] x2The specimen is submitted in four parts.The first container is labeled "gastric biopsy" and consists of four pieces of bernabe tissue measuring 2 mm in greatest dimension each submitted entirely as A1. TMW/ewThe second container is labeled "gastric polyp" and consists of a single portion of bernabe tissue measuring 3 mm in greatest dimension, submitted entirely as B1. The third container is labeled "distal esophagus" and consists of two pieces of feathery bernabe-white tissue measuring 2 mm in greatest dimension each, submitted entirely as C1. The fourth container is labeled "proximal esophagus" and consists of two pieces of off white tissue measuring 3 and 2 mm in greatest dimension each, submitted entirely as D1. TW/plPerformed The interpretation of this case included the use of immunohistochemistry or special stains.Control Slides Examined: In-house known positive controls were evaluated along with the test tissue. These control slides run alongside of the patients sample show appropriate staining. Internal positive and negative controls when available are evaluated Immunohistochemistry technical testing was performed at [facility], Pathology Laboratory where it was developed and its performance characteristics were determined. It has not been cleared or approved by the U.S. Food and Drug Administration. The FDA has determined that such clearance or approval is not necessary. The test is used for clinical purposes. It should not be regarded as investigational or for research. This laboratory is certified under the Clinical Laboratory Improvement Amendments of 1988 (CLIA-88) as qualified to perform high complexity clinical laboratory testing.POCT-GLUCOSE [id number] 12:04:00* Test Item Value Reference Range Interpretation Comments POC-GLUCOSE METER (WENDY) (test code = 1538) 238 mg/dL 70-[address] [facility] [address] [facility] [address]
--- OUTSIDE RECORDS SUMMARY | 2020-05-08 17:39 | XMS REPORT | Summary of Care ---
Author Author [facility] Organization [facility] Address Unknown Phone Unavailable Care Team Providers Care Playground Equipment Erector Name Role Phone Lynnette Servin MD PCP Reason for Visit * Reason Comments Vertigo * Consult, Test & Treat (Routine) Referred By Contact Referred To Contact Status Reason Specialty Diagnoses / Procedures Lynnette eSrvin MD [address] [place] [address] Arleth Melton OT [facility] [address] [place] [address] Incomplete Otolaryngology / Procedures Audiology NEW OCCUPATIONAL THERAPY Encounter Details Care Team Description Date Type Department Arleth Melton OT [facility] [address] [place] [address] Vertigo 10/30/2019 Office Visit [facility] Otolaryngology [facility] [address] [place] [phone] Allergies Comments Active Allergy Reactions Severity Noted Date diarrhea Amoxicillin-Pot High 06/30/2018 Clavulanate Tongue itching Bactrim Ds Medium 06/30/2018 ONLY WITH GENERIC FLUCONAZOLE with itching and rash Fluconazole 06/12/2019 Chest pain Opioid Analgesics High 06/30/2018 Tongue itching Sulfamethoxazole-Trimetho 03/05/2019 prim documented as of this encounter (statuses as of 10/30/2019) Medications End Date Status Medication Sig Dispensed Refills Start Date Active pioglitazone (ACTOS) 30 Take 1 Tab by 90 Tab 3 12/14/201 MG tabletIndications: mouth daily. 9 Type 2 [...] hyperglycemia, with long-term current use of insulin [facility] Active Insulin Aspart (NOVOLOG Inject 5 6 [...] type, needed for unspecified site pain Active sertraline (ZOLOFT) 100 Take 1.5 Tabs 45 Tab 0 MG tablet by mouth 0 daily. Active meclizine (ANTIVERT) 25 Take 1 Tab by 30 Tab 1 MG tablet mouth 3 times 0 daily as needed. Active Azelastine-Fluticasone Take 1-2 1 Bottle 1 137-50 MCG/ACT SUSP sprays twice 0 daily Active fexofenadine (JALIL Take 1 Tab by 60 Tab 3 ALLERGY) 180 MG tablet mouth two 0 times daily. 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 documented as of this encounter Last Filed Vital Signs Not on filedocumented in this encounter Progress Notes * Arleth Melton OT - 10/30/2019 10:00 AM MACHINIST [employer]EN[employer] Patient: Bhupinder Carlos Date: 10/30/2019 : 1970 Age: 48 y.o. Sex: Fe male Visit Duration: 30 min. Diagnosis: R42 Description/ complaint/ history: The patient has had vertigo and disequilibrium for the past 4.5 years intermittently with an exacerbation in the past [address] Servin also ordered an ENG she was not schedule to have it at the time of this visit, due to a Call Center [facility], so those data were not available at the time of this visit. Other health conditions: fluid in her ears, CVA last year. Balance: Romberg on foam with feet together and eyes closed:decreased for this patient's age group. Weight-shifting on the floor was decreased. Gait was slow. Vertigo/ Dizziness: Quincy-Hallpike maneuvers were positive to the right but negat margo to the left.She complained of constant vertigo. Head shaking elicited increa sed vertigo. Head impulse test's were negative bilaterally. Psychosocial: She expressed fear of falling and reasonable concern about her hea lth status. Activities of Daily Living: Safety guarding for most tasks. She is a nurse in ematology - oncology and at [employer] and has been off work for two weeks. She wants t o return to work. Vestibular Disorders Activities of Daily Living Scale score: 4 Complexity: Occupational profile and history: medium. Performance deficits: me dium. Decision making: medium. Plan of Care: The goal of treatment is to decrease vertigo and disequilibrium, a nd improve safety and independence. Three trials of the canalith repositioning maneuver to the right were ineffectiv e, suggesting that the positive Lluvia-Hallpike response may have represented some vestibular neuronitis. She was instructed in a home program of vertigo habituation exercises in sitting and weight shifting exercises to improve standing balance. She practiced the ex ercise program until she could perform it correctly. Follow Up: She was advised to return for follow-up in 2 weeks. Thank you for this referral. Arleth Melton EdD, OTR Professor CC: Lynnette Servin MD INIST [employer]ENCH documented in this encounter Plan of Treatment Care Team Description Date Type Specialty 11/01/2019 Clinical Audiology Support Miguel Stratton MD [address] [facility] [address] [place] [address] [phone] 11/02/2019 Confidential Psychiatry Lynnette Servin MD [address] [place] [address] [phone] 11/05/2019 Office Visit General Internal Me Arleth Pruitt, OT [address] [facility] [address] [place] [address] 11/06/2019 Office Visit Audiology Rajinder Mccullough MD [address] [facility] [address] [place] [address] [phone] 11/07/2019 Office Visit Dermatology Ev Richardson MD [address] [facility] [address] [place] [address] [phone] 01/02/2020 Office Visit Sleep Center Order Schedule Name Type Priority Associated Diag noses Ordered: 10/30/2019 MO OCCUPATIONAL THERAPY MO Charge Routine Dizzin ess EVAL MOD COMPLEX 45 MINS Ordered: 10/30/2019 MO THERAPEUTIC EXERCISES MO Charge Routine Dizzi ness Health Maintenance Due Date Last Done Comments [...] filedocumented in this encounter Visit Diagnoses Diagnosis Dizziness - Primary Dizziness and giddiness documented in this encounter Insurance Type Payer Benefit Subscriber ID Effective Phone Address Plan / Dates Group [facility] xxxxxxxxxxx 2019-P [address] [place] [id number] [place]ESS - [place] [phone] [phone] documented as of this encounter
--- OUTSIDE RECORDS SUMMARY | 2020-05-08 17:39 | XMS REPORT | Summary of Care ---
Author Author [facility] Organization [facility] Address Unknown Phone Unavailable Care Team Providers Care Quality Assurance Assessor Name Role Phone Lynnette Servin MD PCP Reason for Referral * Test (Routine) Referred By Contact Referred To Contact Status Reason Specialty Diagnoses / Procedures Lynnette Servin MD [address] [place] [address] Pending Consult, Test, and Cardiology Diagnoses Treat TIA (transient ischemic attack) Palpitations P rocedures HOLTER MONITOR 48 * Radiology Services (Routine) Referred By Contact Referred To Contact Status Reason Specialty Diagnoses / Procedures Lynnette Servin MD [address] [address] [facility] [address] , [facility] [address] [place] [address] Pending Radiology Diagnoses TIA (transient ischemic attack) P rocedures US CAROTID * Consult, Test & Treat (Urgent) Referred By Contact Referred To Contact Status Reason Specialty Diagnoses / Procedures Lynnette Servin MD [address] [address] Authorization Consult, Test, and Pulmonary Diagnoses Not Needed Treat Disease TUNG (obstructiv e sleep apnea) Snoring Fatigue, unspecified type TIA (transient ischemic attack) Insomnia, unspecified type * Consult, Test & Treat (Routine) Referred By Contact Referred To Contact Status Reason Specialty Diagnoses / Procedures Lynnette Servin MD [address] [address] [address] [place] Hear Bal Speech [address] [employer] [address] [place] [address] Pending Consult, Test, and Audiology Diagnoses Treat Vertigo P rocedures AR OCCUPATIONAL THERAPY EVAL LOW COMPLEX 30 MINS AR CANALITH REPOSITIONING PROCEDURE, PER DAY AR THERAPEUTIC EXERCISES AR NEUROMUSC REEDUCAT,1+ AREAS, EA 15 MIN AR THERAPEUT ACTVITY DIRECT PT CONTACT EACH 15 MIN * Consult, Test & Treat (Routine) Referred By Contact Referred To Contact Status Reason Specialty Diagnoses / Procedures Lynnette Servin MD [address] [address] [address] [place] Hear Fyusion Speech [address] [employer] [facility] [address] [place] [address] Pending Consult, Test, and Audiology Diagnoses Treat Vertigo P rocedures AR CALORIC VESTIBULAR TEST W/REC BI BITHERMAL AR VESTIBULAR EVAL NYSTAG FOVL&PERPH STIM OSCIL TRACKING AR SINUSOIDAL ROTATIONAL TEST AR SUPPLEMENTAL ELECTRICAL TEST AR AUDITORY EVOKED POTENTIAL Reason for Visit * Reason Comments Diabetes Encounter Details Care Team Description Date Type Department Lynnette Servin MD [address] [address] [phone] Diabetes 10/09/[address] [facility] General Internal Medicine [address]; [address] [place] [address] Allergies Comments Active Allergy Reactions Severity Noted Date diarrhea Amoxicillin-Pot High 06/30/2018 Clavulanate Tongue itching Bactrim Ds Medium 06/30/2018 ONLY WITH GENERIC FLUCONAZOLE with itching and rash Fluconazole 06/12/2019 Chest pain Opioid Analgesics High 06/30/2018 Tongue itching Sulfamethoxazole-Trimetho 03/05/2019 prim documented as of this encounter (statuses as of 10/09/2019) Medications End Date Status Medication Sig Dispensed Refills Start Date Active pioglitazone (ACTOS) 30 Take 1 Tab by 90 Tab 3 MG tabletIndications: mouth daily. 9 Type 2 diabetes mellitus with hyperglycemia, with long-term current use of insulin (HCCode) Additional information Patient not taking. Reason: Discontinued by other [...] toes twice daily for 2-4 weeks Active sertraline (ZOLOFT) 100 Take 1.5 Tabs 45 Tab 2 MG tablet by mouth 9 daily. Active Sitagliptin Phosphate 100 Take 100 mg 90 Each 3 07/23/ MG TABSIndications: Type by mouth 9 2 diabetes mellitus with daily. complication, without long-term current use of insulin [facility] Active albuterol 108 (90 base) Inhale 1-2 [...] hyperglycemia, with long-term current use of insulin [facility] Active Insulin Aspart (NOVOLOG Inject 5 6 Pen 3 FLEXPEN) 100 UNIT/ML units three 0 SOPNIndications: Type 2 times a day diabetes mellitus with before each hyperglycemia, with meal per long-term current use of scale insulin [facility] provided Active glipiZIDE (GLUCOTROL) 10 Take 1 Tab by 180 Tab 3 MG tabletIndications: mouth two 0 Type 2 diabetes mellitus times daily. with hyperglycemia, with long-term current use of insulin [facility] Active fluconazole (DIFLUCAN) Take 1 Tab by 1 Tab 3 0 150 MG tabletIndications: mouth daily. 0 Christie vaginitis Active montelukast (SINGULAIR) Take 1 Tab by 90 Tab 3 10 MG tablet mouth daily. 0 10/14/2019 Active oseltamivir (TAMIFLU) 75 Take 1 Cap by 10 Cap 0 MG capsule mouth two 0 times daily for 5 days. 10/09/2019 Discontinued (Reorder) Insulin Detemir (LEVEMIR Inject 15 6 Pen 3 0 FLEXTOUCH) 100 UNIT/ML Units into 9 SOPNIndications: Type 2 the skin diabetes mellitus with nightly. hyperglycemia, with long-term current use of insulin (HCCode) 10/09/2019 Discontinued (Reorder) Insulin Aspart (NOVOLOG Inject 5 6 Pen 3 FLEXPEN) 100 UNIT/ML units three 9 SOPNIndications: Type 2 times a day diabetes mellitus with before each hyperglycemia, with meal per long-term current use of scale insulin (HCCode) provided 10/09/2019 Discontinued (Reorder) glipiZIDE (GLUCOTROL) 10 Take 1 Tab by 180 Tab 3 MG tablet mouth two 9 times daily. 10/09/2019 Discontinued (*Therapy compl eted) acarbose (PRECOSE) 25 MG Take 1 Tab by 90 Tab 6 tabletIndications: mouth 3 times 9 Encounter for therapeutic daily (with drug monitoring, Type 2 meals). diabetes mellitus with complication, without long-term current use of insulin (HCCode) 10/09/2019 Discontinued (*Therapy compl eted) methocarbamol (ROBAXIN) Take 1 Tab by 30 Tab 1 500 MG tabletIndications: mouth 2 times 9 Acute midline low back daily as pain with sciatica, needed. sciatica laterality unspecified 10/09/2019 Discontinued (Reorder) fluconazole (DIFLUCAN) Take 1 Tab by 1 Tab 3 1 150 MG tabletIndications: mouth daily. 9 Christie vaginitis 10/09/2019 Discontinued (*Therapy compl eted) doxycycline (MONODOX) 50 Take 1 Cap by 14 Cap 0 MG capsuleIndications: mouth two 9 Rosacea times daily. 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 documented as of this encounter Last Filed Vital Signs Reading Time Taken Comments Vital Sign 102/72 10/09/2019 10:13 AM LEVER OPERATOR Blood Pressure 81 10/09/2019 10:13 AM LEVER OPERATOR Pulse 36.8 C (98.2 F) 10/09/2019 10:13 AM LEVER OPERATOR Temperature - - Respiratory Rate 98% 10/09/2019 10:13 AM LEVER OPERATOR Oxygen Saturation - - Inhaled Oxygen Concentration 70.7 kg (155 lb 12.8 oz) 10/09/2019 10:13 AM LEVER OPERATOR Weight 152.4 cm (5') 10/09/2019 10:13 AM LEVER OPERATOR Height 30.43 10/09/2019 10:13 AM LEVER OPERATOR Body Mass Index documented in this encounter Patient Instructions * Patient Instructions* Nubia Banks MA - 10/09/2019 9:58 AM LEVER OPERATOR Medication Changes - STOP benadryl, Start Zyrtec 10 mg - Continue singulair 10 mg at night - continue flonase daily - Use meclizine 25 mg (2 tablets for symptoms) - Use exercises - can also consider Gomez-Daroff Exercise for Vertigo (look up on youtube) - Waiting on neurology - Schedule Sleep medicine/Study at [facility] - Increase Aspirin to 325 mg - Ultrasound Dopplers and repeat Holter Patient Education [facility] Myah Maneuver at Home for Vertigo: Exercises Your Care Instructions Vertigo is a spinning or whirling sensation when you move your head. Your doctor may have moved you in different positions to help your vertigo get b aubrie faster. This is called the Myah maneuver. Your doctor also may have asked you to do these exercises at home. Do the exercises as often as your doctor recommends. If your vertigo is getting worse, your doctor may have you change the exercise or stop it. Step 1 Step 1 1. Sit on the edge of a bed or sofa. Step 2 1. Turn your head 45 degrees in the direction your doctor told you to. This shou ld be toward the ear that causes the most vertigo for you. In this picture, the woman is turning toward her left ear. Step 3 1. Tilt yourself backward until you are lying on your back. Your head should sti ll be at a 45-degree turn. Your head should be about midway between looking stra ight ahead and looking out to your side. Hold for 30 seconds. If you have vertig o, stay in this position until it stops. Step 4 1. Turn your head 90 degrees toward the ear that has the least vertigo. In this picture, the woman is turning to the right because she has vertigo on her left s jeannette. The point of your chin should be raised and over your shoulder. Hold for 30 seconds. Step 5 1. Roll onto the side with the least vertigo. You should now be looking at the f bravo. Hold for 30 seconds. Follow-up care is a palomo part of your treatment and safety. Be sure to make and g o to all appointments, and call your doctor if you are having problems. It's als o a good idea to know your test results and keep a list of the medicines you nguyen e. Where can you learn more? Go to [email or web address]/LaunchSide/ Click on the magnifying glass tab, and enter P834 in the search box to learn mor niurka about "Myah Maneuver at Home for Vertigo: Exercises." Current as of: June 27, 2017 Content Version: 11.7 4159-5659 [employer]. Care instructions adapted under license b y [facility]. If you have questions about a medical condition or this instruction, always ask your healthcare professional. [employer] ated disclaims any warranty or liability for your use of this information. R OPERATOR documented in this encounter Progress Notes * Nubia Banks MA - 10/09/2019 9:19 AM LEVER OPERATOR CC: Chief Complaint Patient presents with Diabetes HISTORY OF PRESENT ILLNESS: Bhupinder Carlos is a 48 y.o. year old female who presents for following ata rns: HPI # Vertigo # Dizziness - having persistent Discomfort and [...] now and quezada s not been working # Diabetes Mellitus, uncontrolled - Taking januvia 100 mg, glipzide 10 mg BID, Levemir 15 qPM, taking aspart PRN b ut not as regularly as she should, not started on acarbose yet - BGs: - Fasting/AM: unknown, not checking, likely 300-400s - has not been able to go to work for the past 1 week # ? TIA # Trouble speaking - with slurring episodes x2 and worried that she had two more TIAs - on ASA 81 mg - we still have not gotten her outside medical records from [place] # Cough - consistent with some relief with inhaler # Right Thumb pain - persistent Son has Flu B. REVIEW OF SYSTEMS [...] f or 2-4 weeks 1 Tube 6 gabapentin (NEURONTIN) 300 MG capsule Take 2 Caps by mouth at bedtime. 180 C ap 1 glucose monitoring kit (FREESTYLE) monitoring kit 1 Device. Insulin Pen Needle (BD PEN NEEDLE GLEN [...] daily as nee ded. 30 Tab 0 omeprazole (PRILOSEC) 40 MG capsule Take 1 Cap by mouth daily. May substitut e formulary preferred, generic, brand, or alternative. 90 Cap 3 pioglitazone (ACTOS) 30 MG tablet Take 1 Tab by mouth daily. (Patient not con canchola: Reported on 08/28/2019) 90 Tab 3 propranolol [...] prior to visit. ALLERGIES Allergies as of 10/09/2019 - Reviewed 10/09/2019 Allergen Reaction Noted Augmentin [amoxicillin-pot clavulanate] 06/30/2018 [...] No PHYSICAL EXAM VS : Blood pressure 102/72, pulse 81, temperature 98.2 F (36.8 C), temperatu re source Oral, height 5' (1.524 m), weight 155 lb 12.8 oz (70.7 kg), SpO2 98 %. Body mass index is 30.43 kg/m. Physical Exam Constitutional: She is oriented [...] AND PLAN Bhupinder was seen today for diabetes. Diagnoses and all orders for this visit: Vertigo - AMB REF TO [facility] - AMB REF TO [facility] THER[facility]; Future Type 2 diabetes mellitus with hyperglycemia, with long-term current use of insul in (HCCode) - Increase Insulin Detemir (LEVEMIR FLEXTOUCH) 100 UNIT/ML SOPN; Inject 15 Un its into the skin nightly. Increase levemir by 1 unit QOD until sugars consisten tly in 200s - RTC with log in 1 week . - Re-start Insulin Aspart (NOVOLOG FLEXPEN) 100 UNIT/ML SOPN; Inject 5 units t hree times a day before each meal per scale provided - Continue glipiZIDE (GLUCOTROL) 10 MG tablet; Take 1 Tab by mouth two times d aily. - COMPREHENSIVE METABOLIC PANEL Christie vaginitis - fluconazole (DIFLUCAN) 150 MG tablet; Take 1 Tab by mouth daily. - need to work on sugar control to prevent these Suspected TUNG (obstructive sleep apnea) - AMB REF TO SLEEP LAB EXTERNAL Snoring - AMB REF TO SLEEP LAB EXTERNAL Fatigue, unspecified type - AMB REF TO SLEEP LAB EXTERNAL - COMPREHENSIVE METABOLIC PANEL TIA (transient ischemic attack) - AMB REF TO SLEEP LAB EXTERNAL - US CAROTID; Future - COMPREHENSIVE METABOLIC PANEL - HOLTER MONITOR 48; Future Insomnia, unspecified type - AMB REF TO SLEEP LAB EXTERNAL Hyperlipidemia, unspecified hyperlipidemia type - LIPID PANEL Palpitations - HOLTER MONITOR 48; Future Other orders - montelukast (SINGULAIR) 10 MG tablet; Take 1 Tab by mouth daily. - oseltamivir (TAMIFLU) 75 MG capsule; Take 1 Cap by mouth two times daily f or 5 days. Risks, benefits, and common side effects of [...] decision making. Lynnette Servin MD Internal Medicine [facility] R OPERATOR documented in this encounter Plan of Treatment Care Team Description Date Type Specialty Lynnette Servin MD [address] [place] [address] [phone] 10/12/2019 Office Visit General Internal Me Rajinder Butt MD [address] [facility] [address] [place] [address] [phone] 10/16/2019 Office Visit Dermatology Miguel Stratton MD [address] [facility] 4th [place] [address] [phone] 11/02/2019 Confidential Psychiatry Ev Richardson MD [address] [facility] [address] [place], [place] [id number] 01/02/2020 Office Visit Sleep Center Order Schedule Name Type Priority Associated Diag noses Ordered: 10/09/2019 LIPID PANEL Lab Routine Hyperlipidemia, unspecified hyperlipidemia type 1 Occurrences starting 10/09/2019 until 10/09/2020 CAROTID Imaging Routine TIA (transient ischemic attack) Ordered: 10/09/2019 COMPREHENSIVE METABOLIC Lab Routine Type 2 diabetes mellitus PANEL with hyperglycemia, with long-term current use of insulin (HCCode) Fatigue, unspecified type TIA (transient ischemic attack) 1 Occurrences starting 10/09/2019 until 10/09/2020 HOLTER MONITOR 48 ECG Routine TIA (transie nt ischemic attack) Palpitations Order Schedule Name Type Priority Associated Diag noses Ordered: 10/09/2019 AMB REF TO [facility] Out[facility] Routine Vertigo TEST [facility] Referral 1 Occurrences starting 10/09/2019 until 01/08/2020 AMB REF TO [facility] Outpatient Routine Vertigo THERAPY [facility] Referral Ordered: 10/09/2019 AMB REF TO SLEEP LAB Outpatient Routine TUNG (obst ructive sleep EXTERNAL Referral apnea) Snoring Fatigue, unspecified type TIA (transient ischemic attack) Insomnia, unspecified type Health Maintenance Due Date Last Done Comments [...] Diagnosis Vertigo - Primary Dizziness and giddiness Type 2 diabetes mellitus with hyperglyc emia, with long-term current use of insulin (HCCode) Christie vaginitis Candidiasis of vulva and vagina TUNG (obstructive sleep apnea) Obstructive sleep apnea (adult) (pediat stephanie) Snoring Other dyspnea and respiratory abnormali ty Fatigue, unspecified type TIA (transient ischemic attack) Unspecified transient cerebral ischemia Insomnia, unspecified type Hyperlipidemia, unspecified hyperlipide terrell type Palpitations documented in this encounter Insurance Type Payer Benefit Subscriber ID Effective Phone Address Plan / Dates Group PPO [facility] xxxxxxxxxxx 2019-P [address] [place] [id number] [place]ESS - [place] [id number] [phone] documented as of this encounter
--- OUTSIDE RECORDS SUMMARY | 2020-05-08 17:39 | XMS REPORT | Summary of Care ---
Author Author [facility] Organization [facility] Address Unknown Phone Unavailable Care Team Providers Care Equity Manager Name Role Phone Lynnette Servin MD PCP Reason for Referral * Consult, Test & Treat (Routine) Referred By Contact Referred To Contact Status Reason Specialty Diagnoses / Procedures Lynnette Servin MD [address] [place] [address] [place] [address] [place] [address], [place] [address] Pending Consult, Test, and Physical Therapy Diagnoses Treat Chronic midline low back pain with bilateral sciatica P rocedures SC THERAPEUTIC EXERCISES SC SELF-CARE/HOME MGMT TRAINING EACH 15 MINUTES SC PHYSICAL THERAPY EVALUATION MOD COMPLEX 30 MINS SC MANUAL THER TECH,1+REGIONS,EA 15 MIN * Radiology Services (Routine) Referred By Contact Referred To Contact Status Reason Specialty Diagnoses / Procedures Lynnette Servin MD [address] [place] [address] [place], Radiology [address] [place] [address] Pending Radiology Diagnoses Chronic midline low back pain with bilateral sciatica P rocedures XR LUMBAR SPINE AP LATERAL OBLIQUES FLEXION AND EXTENSION * Radiology Services (Routine) Referred By Contact Referred To Contact Status Reason Specialty Diagnoses / Procedures Lynnette Servin MD [facility] [place] [address] [place], Radiology [address] [place] [address] Pending Radiology Diagnoses Chronic midline low back pain with bilateral sciatica P rocedures XR SACRUM AND COCCYX (COMPLETE) Reason for Visit * Reason Comments Letter for School/Work FMLA forms, discuss back is sues Encounter Details Care Team Description Date Type Department Lynnette Servin MD [address] [place] [address] Letter for School/Work (FMLA forms, disc uss back issues) 04/27/2019 Office Visit [facility] [address] [facility] [address]; [address] [place] [address] Allergies Comments Active Allergy Reactions Severity Noted Date diarrhea Amoxicillin-Pot High 06/30/2018 Clavulanate Tongue itching Bactrim Ds Medium 06/30/2018 Chest pain Opioid Analgesics High 06/30/2018 documented as of this encounter (statuses as of 04/27/2019) Medications End Date Status Medication Sig Dispensed Refills Start Date Active Continuous Blood Gluc 1 Device 1 Device 0 11/18 Word Processor (FREESTYLE HILDA daily. 9 READER) DEVIIndications: Type [...] not specified, Upper abdominal pain, Nausea Active omeprazole (PRILOSEC) 40 Take 1 Cap [...] Allergic rhinitis, unspecified seasonality, unspecified trigger Active glipiZIDE (GLUCOTROL) 10 Take 1 Tab by 180 Tab 3 MG tablet mouth two 9 times daily. Active glucose monitoring kit 1 Device. 0 12/14/ 01 (FREESTYLE) monitoring 9 kit Active amitriptyline (ELAVIL) 25 Take 1 Tab [...] week Seborrheic dermatitis as needed Active Ergocalciferol 36966 Take one 12 Each 0 04/26 units CAPS tablet weekly 9 Active propranolol (INDERAL LA) Take 1 Cap by 90 Cap 3 80 MG SR mouth daily. 9 capsuleIndications: Other migraine without status migrainosus, not intractable Active benzonatate (TESSALON) benzonatate 60 Cap 0 100 mg 100 mg 9 capsuleIndications: Cough capsule Active gabapentin (NEURONTIN) Take 2 Caps 180 Cap 1 300 MG by mouth at 9 capsuleIndications: bedtime. Chronic midline low back pain without sciatica Active fluconazole (DIFLUCAN) Take 1 Tab by 3 Tab 0 0 150 MG tabletIndications: mouth daily. 9 Candidiasis Active metformin (GLUCOPHAGE-XR) Take 2 Tabs 120 Tab 0 500 MG XR by mouth two 9 tabletIndications: Type 2 times daily. diabetes mellitus with complication, without long-term current use of insulin Active Sitagliptin Phosphate 100 Take 100 mg 30 Each 3 MG TABSIndications: Type by mouth 9 2 diabetes mellitus with daily. complication, without long-term current use of insulin 04/27/2019 Discontinued propranolol (INDERAL LA) Take 1 Cap by 30 Cap 1 80 MG SR mouth daily. 9 capsuleIndications: Other migraine without status migrainosus, not intractable 04/27/2019 Discontinued gabapentin (NEURONTIN) Take 1 Cap by 90 Cap 1 0 300 MG mouth at 9 capsuleIndications: bedtime. Chronic midline low back pain without sciatica 04/27/2019 Discontinued benzonatate (TESSALON) benzonatate 0 100 mg capsule 100 mg capsule 04/27/2019 Discontinued clotrimazole (LOTRIMIN) 1 clotrimazole 0 % cream 1 % topical cream 04/27/2019 Discontinued ondansetron (ZOFRAN-ODT) ondansetron 4 0 4 mg disintegrating mg tablet disintegratin g tablet documented as of this encounter (statuses as of 04/27/2019) Active Problems Problem Noted Date Type 2 diabetes mellitus with complication, with long -term current use of 01/02/2019 insulin Palpitation 01/02/2019 Migraine 01/02/2019 Mild episode of recurrent major depressive disorder 01/02/2019 Insomnia 01/02/2019 Fatty liver disease, nonalcoholic Pulmonary embolism Overview: in setting of gallbladder surgery, prev iously on eliquis, now off documented as of this encounter (statuses as of 04/27/2019) Immunizations Name Administration Dates Next Due Influenza [...] Signs Reading Time Taken Comments Vital Sign 108/72 04/27/2019 1:05 PM CDT Blood Pressure 82 04/27/2019 1:05 PM CDT Pulse 36.7 C (98 F) 04/27/2019 1:05 PM CDT Temperature 16 04/27/2019 1:05 PM CDT Respiratory Rate 98% 04/27/2019 1:05 PM CDT Oxygen Saturation - - Inhaled Oxygen Concentration 69.2 kg (152 lb 9.6 oz) 04/27/2019 1:05 PM CDT Weight 152.4 cm (5') 04/27/2019 1:05 PM CDT Height 29.8 04/27/2019 1:05 PM CDT Body Mass Index documented in this encounter Progress Notes * Lynnette Servin MD - 04/27/2019 1:15 PM CDT CC: Chief Complaint Patient presents with Letter for School/Work FMLA forms, discuss back issues HISTORY OF PRESENT ILLNESS: Bhupinder Carlos is a 48 y.o. year old female who presents for following ata rns: # Lower back pain - feels like a ball of fire in the bottom of her back with lower back pain that radiates to the right > left - flexeril 10 mg qHS - has not tried a half tablet 5 mg - pain worse with sitting in chairs - has to stay in bed with heating pad - has been on elavil 25 mg qHS - reports some mild numbness intermittently in the left little toe - stress incontinence with caffeine but no bowel or bladder incontinence otherwi se, no saddle anesthesia at baseline, only with sitting long periods of time # FMLA REVIEW OF SYSTEMS Review of Systems Except as above in HPI, otherwise relevant 10 point ROS reviewed and negative. PAST MEDICAL HISTORY Past Medical History: Diagnosis Date Anxiety Depression DM2 (diabetes mellitus, type 2) Dyslipidemia Fatty liver disease, nonalcoholic Pulmonary embolism in setting of gallbladder surgery, previously on eliquis, now off PAST SURGICAL HISTORY Past Surgical History: Procedure Laterality Date HX CARDIAC CATHERIZATION 2014 normal HX CHOLECYSTECTOMY HX COLONOSCOPY HX ENDOMETRIAL ABLATION HX ENDOSCOPY HX GALLBLADDER REMOVAL HX LIVER BIOPSY HX TONSILLECTOMY MEDICATIONS Current Outpatient Medications on File Prior to Visit Medication Sig Dispense Refill amitriptyline (ELAVIL) 25 MG tablet Take 1 Tab by mouth nightly. 30 Tab 1 atorvastatin (LIPITOR) 40 MG tablet Take 1 Tab by mouth daily. 90 Tab 3 buPROPion (WELLBUTRIN) 150 MG XL tablet Take 1 Tab by mouth every morning. 3 0 Tab 1 busPIRone (BUSPAR) 10 MG tablet Take 1 Tab by mouth two times daily. 180 Tab 3 clotrimazole-betamethasone (LOTRISONE) cream Apply pea size (0.5 gm) on effe cted area twice a day 45 g 1 Continuous Blood Gluc Word Processor (FREESTYLE HILDA READER) JAYLEN 1 Device daily. 1 Device 0 Continuous Blood Gluc Sensor (FREESTYLE HILDA SENSOR SYSTEM) MISC 1 Each claudia ry 14 days. 2 Each 11 Ergocalciferol 89516 units CAPS Take one tablet weekly 12 Each 0 glipiZIDE (GLUCOTROL) 10 MG tablet Take 1 [...] needed for Anx iety. 15 Tab 0 montelukast (SINGULAIR) 10 MG tablet Take 1 Tab by mouth daily. 30 Tab 3 omeprazole (PRILOSEC) 40 MG capsule Take 1 Cap by mouth two times daily. 60 Cap 1 ondansetron (ZOFRAN) 4 MG tablet Take 1 Tab by mouth every 8 hours as needed for Nausea. 30 Tab 5 pioglitazone (ACTOS) 30 MG tablet Take 1 Tab by mouth daily. (Patient taking differently: Take 15 mg by mouth daily.) 90 Tab 3 sucralfate (CARAFATE) 1 g tablet Take 1 Tab by mouth four times daily. 120 T ab 1 valacyclovir (VALTREX) 1 g tablet Take 1 Tab by mouth daily. For 5 days 20 T ab 3 No current facility-administered medications on file prior to visit. ALLERGIES Allergies as of 04/27/2019 - Reviewed 04/27/2019 Allergen Reaction Noted Augmentin [amoxicillin-pot clavulanate] 06/30/2018 Morphine and related [opioid analgesics] 06/30/2018 Bactrim ds 06/30/2018 FAMILY HISTORY Family History Problem Relation Name [...] No PHYSICAL EXAM VS : Blood pressure 108/72, pulse 82, temperature 98 F (36.7 C), temperature source Oral, resp. rate 16, height 5' (1.524 m), weight 152 lb 9.6 oz (69.2 kg), SpO2 98 %. Physical Exam Constitutional: She is oriented to person, place, and time and well-developed, w ell-nourished, and in no distress. No distress. HENT: Head: Normocephalic and atraumatic. Right Ear: External ear normal. Left Ear: External ear normal. Mouth/Throat: Oropharynx is clear and moist. Shiny tongue Eyes: Pupils are equal, round, and reactive [...] and oriented to person, place, and time. She displays no weakness. She has an abnormal Straight Leg Raise Test (pain worse on R > L ). Gait normal. Gait normal. She displays no Babinski's sign on the left side. Skin: Skin is warm and dry. She is not diaphoretic. Psychiatric: Mood, memory, affect and judgment normal. ADDITIONAL DATA Labs and Xrays were reviewed. IMPRESSION AND PLAN Bhupinder was seen today for letter for school/work. Diagnoses and all orders for this visit: Chronic midline low back pain with bilateral sciatica - XR SACRUM AND COCCYX (COMPLETE); Future - XR LUMBAR SPINE AP LATERAL OBLIQUES FLEXION AND EXTENSION; Future - AMB REF TO PT [facility] - SEDIMENTATION RATE MODIFIED WESTERGREN - C-REACTIVE PROTEIN Numbness and tingling - VITAMIN B12 B12 deficiency - VITAMIN B12 Other migraine without status migrainosus, not intractable - propranolol (INDERAL LA) 80 MG SR capsule; Take 1 Cap by mouth daily. Chronic midline low back pain without sciatica - gabapentin (NEURONTIN) 300 MG capsule; Take 2 Caps by mouth at bedtime. Cough - benzonatate (TESSALON) 100 mg capsule; benzonatate 100 mg capsule Type 2 diabetes mellitus with complication, without long-term current use of ins ulin - HEMOGLOBIN A1C - metformin (GLUCOPHAGE-XR) 500 MG XR tablet; Take 2 Tabs by mouth two times daily. - Sitagliptin Phosphate 100 MG TABS; Take 100 mg by mouth daily. Candidiasis - fluconazole (DIFLUCAN) 150 MG tablet; Take 1 Tab by mouth daily. Risks, benefits, and common side effects of all new medications discussed and [place] given opportunity to ask any questions or concerns. They were answered to patient's satisfaction. Lynnette Servin MD Internal Medicine [facility] documented in this encounter Plan of Treatment Care Team Description Date Type Specialty Rajinder Mccullough MD [address] [place] [address] [address] [place] [address] [phone] 08/24/2019 Office Visit Dermatology Order Schedule Name Type Priority Associated Diag noses 1 Occurrences starting 04/27/2019 until 11/26/2019 XR SACRUM AND COCCYX Imaging Routine Chronic m idline low back (COMPLETE) pain with bilateral sciatica 1 Occurrences starting 04/27/2019 until 11/26/2019 XR LUMBAR SPINE AP Imaging Routine Chronic mid line low back LATERAL OBLIQUES FLEXION pain with bilateral AND EXTENSION sciatica Ordered: 04/27/2019 SEDIMENTATION RATE Lab Routine Chronic mid line low back MODIFIED WESTERGREN pain with bilateral sciatica Ordered: 04/27/2019 C-REACTIVE PROTEIN Lab Routine Chronic mid line low back pain with bilateral sciatica Ordered: 04/27/2019 VITAMIN B12 Lab Routine Numbness and ti ngling B12 deficiency Ordered: 04/27/2019 HEMOGLOBIN A1C Lab Routine Type 2 diabetes mellitus with complication, without long-term current use of insulin Order Schedule Name Type Priority Associated Diag noses Ordered: 04/27/2019 AMB REF TO PT [facility] Outpatient Routine Chronic m idline low back Referral pain with bilateral sciatica Health Maintenance Due Date Last Done Comments [...] filedocumented in this encounter Visit Diagnoses Diagnosis Chronic midline low back pain with bila teral sciatica - Primary Numbness and tingling Disturbance of skin sensation B12 deficiency Other B-complex deficiencies Other migraine without status migrainos us, not intractable Chronic midline low back pain without s ciatica Cough Type 2 diabetes mellitus with complicat ion, without long-term current use of insulin Candidiasis Candidiasis of unspecified site documented in this encounter Insurance Type Payer Benefit Subscriber ID Effective Phone Address Plan / Dates Group PPO [facility] [employer] xxxxxxxxx 2018- [address] PPO - [place] Present [address] [place] [address] [id number] documented as of this encounter
--- OUTSIDE RECORDS SUMMARY | 2020-05-08 17:39 | XMS REPORT | Summary of Care ---
Author Author [facility] Organization [facility] Address Unknown Phone Unavailable Care Team Providers Care Weight And Balance Control Agent Name Role Phone Lynnette Servin MD PCP Reason for Referral * Test (Routine) Referred By Contact Referred To Contact Status Reason Specialty Diagnoses / Procedures Lynnette Servin MD [address] [id number] Pending Consult, Test, and Cardiology Diagnoses Treat TIA (transient ischemic attack) Palpitations P rocedures HOLTER MONITOR 72 HOUR * Consult, Test & Treat (Routine) Referred By Contact Referred To Contact Status Reason Specialty Diagnoses / Procedures Lynnette Servin MD [address] [address] [address] [place] [id number] Pending Consult, Test, and Ophthalmology Diagnoses Treat TIA (transient ischemic attack) Type 2 diabetes mellitus with complication, without long-term current use of insulin P rocedures MD OFFICE OUTPATIENT NEW 45 MINUTES MD EYE EXAM, NEW PATIENT,COMPREHESV * Consult, Test & Treat (Routine) Referred By Contact Referred To Contact Status Reason Specialty Diagnoses / Procedures Lynnette Servin MD [address] [address] [place] Neurology [address] [place] [address]. 9[address] Floor, [address] [place] [address] Pending Consult, Test, and Neurology Diagnoses Treat TIA (transient ischemic attack) P rocedures MD OFFICE OUTPATIENT NEW 30 MINUTES Reason for Visit * Reason Comments Transient Ischemic Attack Encounter Details Care Team Description Date Type Department Lynnette Servin MD [address] [place], [place] [id number] Transient Ischemic Attack 05/14/2019 Office Visit [facility] General Internal Medicine [address] [facility]. 8th Floor; [address] [place] [address] Allergies Comments Active Allergy Reactions Severity Noted Date diarrhea Amoxicillin-Pot High 06/30/2018 Clavulanate Tongue itching Bactrim Ds Medium 06/30/2018 Chest pain Opioid Analgesics High 06/30/2018 documented as of this encounter (statuses as of 05/15/2019) Medications End Date Status Medication Sig Dispensed Refills Start Date Active Continuous Blood Gluc 1 Device 1 Device 0 11/18 Sales Operations Analyst (FREESTYLE HILDA daily. 9 READER) DEVIIndications: Type [...] Needle (BD Inject 200 Each PEN NEEDLE GLNE U/F) 32G insulin 4 9 X 4 MM MISC times a day Active atorvastatin (LIPITOR) 40 Take 1 Tab by 90 Tab 3 MG tablet mouth daily. 9 Active valacyclovir (VALTREX) 1 Take 1 Tab by 20 Tab 3 g tabletIndications: mouth daily. 9 HSV-2 infection For 5 days Active busPIRone (BUSPAR) 10 MG Take 1 Tab by 180 Tab 3 tabletIndications: mouth two 9 Depression, unspecified times daily. depression type Active clotrimazole-betamethason Apply pea 45 g 1 e (LOTRISONE) size (0.5 gm) 9 creamIndications: Vaginal on effected itching area twice a day Active glipiZIDE (GLUCOTROL) 10 Take 1 Tab by 180 Tab 3 MG tablet mouth two 9 times daily. Active glucose monitoring kit 1 Device. 0 12/14/ 01 (FREESTYLE) monitoring 9 kit Active lorazepam (ATIVAN) 0.5 MG Take 1 Tab by 15 Tab 0 tablet mouth daily 9 as needed for Anxiety. Active ketoconazole (NIZORAL) 2 Apply to 120 mL 5 0 % shampooIndications: scalp to wash 9 Telogen effluvium, twice a week Seborrheic dermatitis as needed Active Ergocalciferol [address]386 Take one 12 Each 0 04/26 units [...] without long-term current use of insulin Active tretinoin (RETIN-A) 0.025 Apply a small 45 g 3 % creamIndications: amount 9 Wrinkles topically to face every night Active amitriptyline (ELAVIL) 50 Take 1 Tab by 30 Tab 1 MG tablet mouth 9 nightly. Active cyclobenzaprine Take 1 Tab by 30 Tab 1 05/14/20 1 (FLEXERIL) 10 MG mouth 2 times 9 tabletIndications: daily as Chronic midline low back needed for pain with bilateral Muscle sciatica, Back muscle spasms. spasm Active omeprazole (PRILOSEC) 20 Take 1 Cap by 30 Cap 1 MG capsuleIndications: mouth daily. 9 Gastroesophageal reflux disease, esophagitis presence not specified Active sertraline (ZOLOFT) 50 MG TAKE 1 TABLET 90 Tab 1 tablet BY MOUTH 9 EVERY DAY Active dexamethasone 1 MG Take a dose 60 Each 0 01 TABSIndications: at 11 PM and 9 Cushingoid facies go for cortisol labs at 8AM 05/14/2019 Discontinued sucralfate (CARAFATE) 1 g Take 1 Tab by 120 Tab 1 tablet mouth four 9 times daily. 05/14/2019 Discontinued ondansetron (ZOFRAN) 4 MG Take 1 Tab by 30 Tab 5 tabletIndications: mouth every 8 9 Dyspepsia, hours as Gastroesophageal reflux needed for disease, esophagitis Nausea. presence not specified, Upper abdominal pain, Nausea 05/14/2019 Discontinued omeprazole (PRILOSEC) 40 Take 1 Cap by 60 Cap 1 MG capsuleIndications: mouth two 9 Dyspepsia, times daily. Gastroesophageal reflux disease, esophagitis presence not specified, Upper abdominal pain, Nausea 05/14/2019 Discontinued montelukast (SINGULAIR) Take 1 Tab by 30 Tab 3 10 MG tabletIndications: mouth daily. 9 Allergic rhinitis, unspecified seasonality, unspecified trigger 05/14/2019 Discontinued buPROPion (WELLBUTRIN) Take 1 Tab by 30 Tab 1 0 150 MG XL tablet mouth every 9 morning. 05/14/2019 Discontinued benzonatate (TESSALON) benzonatate 60 Cap 0 100 mg 100 mg 9 capsuleIndications: Cough capsule 05/14/2019 Discontinued sertraline (ZOLOFT) 50 MG TAKE 1 TABLET 3 04/19 tablet BY MOUTH 9 EVERY DAY documented as of this encounter (statuses as of 05/15/2019) Active Problems Problem Noted Date TIA (transient [...] goal of weaning to H2 b locker Shortness of breath 05/15/2019 Type 2 diabetes mellitus with complication, with long -term current use of 01/02/2019 insulin Last Assessment & Plan: Taking glipizide 10 mg BID, Levemir 15 units + Aspart 5 units TID, Actos 30 mg, januvia 100 mg daily - SGLT2i cause yeast infections - BGs: - Fasting/AM: 140-170s - Eye Exam: Due - Foot Exam: UTD - Microalbumin/HAYLEE/ARB: UTD in 12/2018 - Neuropathy - managed on gabapentin 30 0 mg and elavil 50 mg qHS - Denies any hypoglycemic symptoms or n umbers on fingerstick Palpitation 01/02/2019 Migraine 01/02/2019 Mild episode of recurrent major depressive disorder 01/02/2019 Last Assessment & Plan: - has not been on wellbutrin for a week and a little more calm, might be causing anxiety, only taking zoloft 50 mg. Will continue for now. Insomnia 01/02/2019 Fatty liver disease, nonalcoholic Pulmonary embolism Overview: in setting of gallbladder surgery, prev iously on eliquis, now off documented as of this encounter (statuses as of 05/15/2019) Immunizations Name Administration Dates Next Due Influenza [...] Signs Reading Time Taken Comments Vital Sign 110/76 05/14/2019 5:06 PM CDT Blood Pressure 93 05/14/2019 5:06 PM CDT Pulse 36.9 C (98.5 F) 05/14/2019 5:06 PM CDT Temperature 16 05/14/2019 5:06 PM CDT Respiratory Rate 96% 05/14/2019 5:06 PM CDT Oxygen Saturation - - Inhaled Oxygen Concentration 71.2 kg (157 lb) 05/14/2019 5:06 PM CDT Weight 152.4 cm (5') 05/14/2019 5:06 PM CDT Height 30.66 05/14/2019 5:06 PM CDT Body Mass Index documented in this encounter Patient Instructions * Patient Instructions* Lynnette Servin MD - 05/14/2019 5:15 PM CDT 1) Take 8AM cortisol test - if high, will need to do a dex suppression test (Pete e a dose of dex 1 mg at 11 PM and go for cortisol labs at 8AM the following day) Lose It belen documented in this encounter Progress Notes * Lynnette Servin MD - 05/14/2019 5:15 PM CDT CC: Chief Complaint Patient presents with Transient Ischemic Attack HISTORY OF PRESENT ILLNESS: Bhupinder Carlos is a 48 y.o. year old female who presents for following ata rns: Type 2 diabetes mellitus with complication, with long-term current use of insuli n Taking glipizide 10 mg BID, Levemir 15 units + Aspart 5 units TID, Actos 30 mg, januvia 100 mg daily - SGLT2i cause yeast infections - BGs: - Fasting/AM: 140-170s - Eye Exam: Due - Foot Exam: UTD - Microalbumin/HAYLEE/ARB: UTD in 12/2018 - Neuropathy - managed on gabapentin 300 mg and elavil 50 mg qHS - Denies any hypoglycemic symptoms or numbers on fingerstick TIA (transient ischemic attack) - left side facial numbness, chest pain unresponsive to lorazepam - at hospital had dysphasia - had 170/110 at the ER - had echo, was on tele, MRI/MRA, CT - on aspirin 81 mg daily - on atorvastatin 40 mg - need repeat LDL, last 129s GERD (gastroesophageal reflux disease) GERD+PUD improved - off sucralfate, only taking omeprazole PRN every few days - will trial 20 mg t ablets with goal of weaning to H2 kemar Mild episode of recurrent major depressive disorder - has not been on wellbutrin for a week and a little more calm, might be causing anxiety, only taking zoloft 50 mg. Will continue for now. # Shortness of breath - associates with muscle weakness sometimes, palpitations sometimes but not alwa ys associated - echo at [place] - had a stress done by a occupational medicine officer in [place] - need records # Back Muscle Spasms - on flexeril with good response REVIEW OF SYSTEMS Review of Systems Except [...] day 45 g 1 Continuous Blood Gluc Sales Operations Analyst (FREESTYLE HILDA READER) JAYLEN 1 Device daily. 1 Device 0 Continuous Blood Gluc Sensor (FREESTYLE HILDA SENSOR SYSTEM) MISC 1 Each claudia ry 14 days. 2 Each 11 Ergocalciferol 56815 units CAPS Take one tablet weekly 12 Each 0 fluconazole (DIFLUCAN) 150 MG tablet Take 1 Tab by mouth daily. 3 Tab 0 gabapentin (NEURONTIN) 300 MG [...] needed for Anx iety. 15 Tab 0 metformin (GLUCOPHAGE-XR) 500 MG XR tablet Take 2 Tabs by mouth two times da severiano. 120 Tab 0 pioglitazone (ACTOS) 30 MG tablet Take 1 Tab by mouth daily. (Patient taking differently: Take 15 mg by mouth daily.) 90 Tab 3 propranolol (INDERAL LA) 80 MG SR capsule Take 1 Cap by mouth daily. 90 Cap 3 Sitagliptin Phosphate 100 MG TABS Take 100 mg by mouth daily. 30 Each 3 tretinoin (RETIN-A) 0.025 % cream Apply a small amount topically to face claudia ry night 45 g 3 valacyclovir (VALTREX) 1 g tablet Take 1 Tab by mouth daily. For 5 days 20 T ab 3 No current facility-administered medications on file prior to visit. ALLERGIES Allergies as of 05/14/2019 - Reviewed 05/14/2019 Allergen Reaction Noted Augmentin [amoxicillin-pot clavulanate] 06/30/2018 [...] No PHYSICAL EXAM VS : Blood pressure 110/76, pulse 93, temperature 98.5 F (36.9 C), temperatu re source Oral, resp. rate 16, height 5' (1.524 m), weight 157 lb (71.2 kg), SpO 2 96 %. Physical Exam Constitutional: She is oriented [...] AND PLAN Bhupinder was seen today for transient ischemic attack. Diagnoses and all orders for this visit: TIA (transient ischemic attack) - AMB REF TO NEUROLOGY [facility] - LIPID PANEL - AMB REF TO OPHTHO DIABETES EXAM [facility] - HOLTER MONITOR 72 HOUR; Future Type 2 diabetes mellitus with complication, without long-term current use of ins ulin - AMB REF TO OPHTHO DIABETES EXAM [facility] - CORTISOL Hyperlipidemia, unspecified hyperlipidemia type - LIPID PANEL Palpitations - HOLTER MONITOR 72 HOUR; Future Chronic midline low back pain with bilateral sciatica - cyclobenzaprine (FLEXERIL) 10 MG tablet; Take 1 Tab by mouth 2 times daily as needed for Muscle spasms. Back muscle spasm - cyclobenzaprine (FLEXERIL) 10 MG tablet; Take 1 Tab by mouth 2 times daily as needed for Muscle spasms. Gastroesophageal reflux disease, esophagitis presence not specified - omeprazole (PRILOSEC) 20 MG capsule; Take 1 Cap by mouth daily. Fatigue, unspecified type - CORTISOL Cushingoid facies - CORTISOL - dexamethasone 1 MG TABS; Take a dose at 11 PM and go for cortisol labs at 8AM - CORTISOL; Future Other orders - sertraline (ZOLOFT) 50 MG tablet; TAKE 1 TABLET BY MOUTH EVERY DAY Risks, benefits, and common side effects of all new medications discussed and [place] given opportunity to ask any questions or concerns. They were answered to patient's satisfaction. Lynnette Servin MD Internal Medicine [facility] documented in this encounter Plan of Treatment Care Team Description Date Type Specialty Rajinder Mccullough MD [address] [facility] [address] [place] [address] [phone] 08/24/2019 Office Visit Dermatology Order Schedule Name Type Priority Associated Diag noses Ordered: 05/14/2019 LIPID PANEL Lab Routine TIA (transient ischemic attack) Hyperlipidemia, unspecified hyperlipidemia type 1 Occurrences starting 05/14/2019 until 05/14/2020 HOLTER MONITOR 72 HOUR ECG Routine TIA (tr ansient ischemic attack) Palpitations Ordered: 05/14/2019 CORTISOL Lab Routine Type 2 diabetes mellitus with complication, without long-term current use of insulin Fatigue, unspecified type Cushingoid facies Expected: 05/16/2019, Expires: 0 CORTISOL Lab Routine Cushingoid faci es Order Schedule Name Type Priority Associated Diag noses Ordered: 05/14/2019 AMB REF TO NEUROLOGY Outpatient Routine TIA (craig sient ischemic [facility] Referral attack) Ordered: 05/14/2019 AMB REF TO OPHTHO Outpatient Routine TIA (transie nt ischemic DIABETES EXAM [facility] Referral attack) Type 2 diabetes mellitus with complication, without long-term current use of insulin Health Maintenance Due Date Last Done Comments [...] filedocumented in this encounter Visit Diagnoses Diagnosis TIA (transient ischemic attack) - Prima ry Unspecified transient cerebral ischemia Type 2 diabetes mellitus with complicat ion, without long-term current use of insulin Hyperlipidemia, unspecified hyperlipide terrell type Palpitations Chronic midline low back pain with bila teral sciatica Back muscle spasm Other symptoms referable to back Gastroesophageal reflux disease, esopha gitis presence not specified Fatigue, unspecified type Cushingoid facies Other ill-defined conditions documented in this encounter Insurance Type Payer Benefit Subscriber ID Effective Phone Address Plan / Dates Group PPO [facility] [employer] xxxxxxxxx 2018- [address] [facility] Present [id number] [place] [address] [phone] documented as of this encounter
--- OUTSIDE RECORDS SUMMARY | 2020-05-08 17:39 | XMS REPORT | Summary of Care ---
Author Author [facility] Organization [facility] Address Unknown Phone Unavailable Care Team Providers Care Sales Planning Analyst Name Role Phone Lynnette Servin MD PCP Reason for Referral * Radiology Services (Routine) Referred By Contact Referred To Contact Status Reason Specialty Diagnoses / Procedures Lynnette Servin MD [address] [address] [facility] [address] [facility] [address] [place] [address] Pending Radiology Diagnoses Multiple thyroid nodules P rocedures US THYROID * Consult, Test & Treat (Routine) Referred By Contact Referred To Contact Status Reason Specialty Diagnoses / Procedures Lynnette Servin MD [address] [address] Otolaryngology [address] [facility] [address] [place] [address] Pending Consult, Test, and Otolaryngology Diagnoses Treat Vertigo Dizziness P rocedures HI OFFICE OUTPATIENT NEW 30 MINUTES Reason for Visit * Reason Comments Dizziness Encounter Details Care Team Description Date Type Department Lynnette Servin MD [address] [address] [phone] Dizziness 11/19/2019 Office Visit [facility] General Internal Medicine [address] [facility] 8th Floor; [address] [place] [address] Allergies Comments Active Allergy Reactions Severity Noted Date diarrhea Amoxicillin-Pot High 06/30/2018 Clavulanate Tongue itching Bactrim Ds Medium 06/30/2018 ONLY WITH GENERIC FLUCONAZOLE with itching and rash Fluconazole 06/12/2019 Chest pain Opioid Analgesics High 06/30/2018 Tongue itching Sulfamethoxazole-Trimetho 03/05/2019 prim documented as of this encounter (statuses as of 11/19/2019) Medications End Date Status Medication Sig Dispensed [...] times 9 daily as needed. Active Insulin Aspart (NOVOLOG Inject 5 6 Pen 3 FLEXPEN) 100 UNIT/ML units three 0 SOPNIndications: Type 2 times a day diabetes mellitus with before each hyperglycemia, with meal per long-term current use of scale insulin [facility] provided Active glipiZIDE (GLUCOTROL) 10 Take 1 Tab by 180 Tab 3 MG tabletIndications: mouth two 0 Type 2 diabetes mellitus times daily. with hyperglycemia, with long-term current use of insulin [facility]) Active fluconazole (DIFLUCAN) Take 1 Tab [...] MG tablet mouth two 0 times daily. Active sertraline (ZOLOFT) 100 Take 1.5 Tabs 135 Tab 0 MG tablet by mouth 0 daily. Active trazodone (DESYREL) 50 MG TAKE 1 TO 2 180 Tab 0 tablet TABLETS BY 0 MOUTH NIGHTLY NEEDED FOR INSOMNIA. Active busPIRone (BUSPAR) 10 MG Take 1 Tab by 270 Tab 1 tabletIndications: mouth every 0 Depression, unspecified morning AND 2 depression type Tabs nightly. Active lorazepam (ATIVAN) 0.5 MG Take 1 Tab by 15 Tab 0 tablet mouth daily 0 as needed for Anxiety. Active Insulin Detemir (LEVEMIR Inject 30 12 Pen 3 0 FLEXTOUCH) 100 UNIT/ML Units into 0 SOPNIndications: Type 2 the skin diabetes mellitus with nightly. hyperglycemia, with long-term current use of insulin (HCCode) 11/19/2019 Discontinued (Reorder) Insulin Detemir (LEVEMIR Inject 15 6 Pen 3 0 FLEXTOUCH) 100 UNIT/ML Units into 0 SOPNIndications: Type 2 the skin diabetes mellitus with nightly. 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 documented as of this encounter Last Filed Vital Signs Reading Time Taken Comments Vital Sign 100/60 11/19/2019 3:21 PM WOOD BOATBUILDER APPRENTICE Blood Pressure 75 11/19/2019 3:21 PM WOOD BOATBUILDER APPRENTICE Pulse 36.8 C (98.3 F) 11/19/2019 3:21 PM WOOD BOATBUILDER APPRENTICE Temperature - - Respiratory Rate 99% 11/19/2019 3:21 PM WOOD BOATBUILDER APPRENTICE Oxygen Saturation - - Inhaled Oxygen Concentration 71.1 kg (156 lb 12.8 oz) 11/19/2019 3:21 PM WOOD BOATBUILDER APPRENTICE Weight 152.4 cm (5') 11/19/2019 3:21 PM WOOD BOATBUILDER APPRENTICE Height 30.62 11/19/2019 3:21 PM WOOD BOATBUILDER APPRENTICE Body Mass Index documented in this encounter Patient Instructions * Patient Instructions* Lynnette Servin MD - 11/19/2019 2:30 PM WOOD BOATBUILDER APPRENTICE - For the sugars, please increase levemir by 2 units every other day until sugar s are consistently in the 100s. BOATBUILDER APPRENTICE documented in this encounter Progress Notes * Lynnette Servin MD - 11/19/2019 2:30 PM WOOD BOATBUILDER APPRENTICE CC: Chief Complaint Patient presents with Dizziness HISTORY OF PRESENT ILLNESS: Bhupinder Carlos is a 49 y.o. year old female who presents for following ata rns: HPI # Vertigo/Dizziness - taking whitney twice daily and having more allergy symptoms - had extensive vestibular testing done on 11/14, but we do not have full reports but told that everything was unrevealing - she does have inez-hallpike on the right # TUNG - pending sleep study on Tuesday # DM2 - sugars in the 200s on levemir 21 units. - started taking acarbose last week but was initially taking after meals # Thyroid Nodule - 2010, has had these for quite a while - still having trouble swallowing worse in the evening # Dysphagia - worse at end of day - esophogram has not been done REVIEW OF SYSTEMS Review of Systems Except [...] Tab by mouth daily. 90 Tab 3 Azelastine-Fluticasone 137-50 MCG/ACT SUSP Take 1-2 sprays twice daily 1 Bot tle 1 busPIRone (BUSPAR) 10 MG tablet Take [...] to affected area up to 4 times julisu y as needed for pain 1 Tube 12 famotidine (PEPCID) 40 MG tablet Take 1 Tab by mouth every evening. 30 Tab 1 fexofenadine (WHITNEY ALLERGY) 180 MG tablet Take 1 Tab by mouth two times d aily. 60 Tab 3 fluconazole (DIFLUCAN) 150 MG tablet Take 1 [...] per scale provided 6 Pen 3 Insulin Pen Needle (BD [...] generic, brand, or alternative. 90 Cap 3 propranolol (INDERAL LA) 80 MG SR capsule Take 1 Cap by mouth daily. 90 Cap 3 sertraline (ZOLOFT) 100 MG tablet Take 1.5 Tabs by mouth daily. 135 Tab 0 Sitagliptin Phosphate 100 MG TABS Take 100 mg by mouth daily. 90 Each 3 Spacer/Aero-Holding Chambers (E-Z SPACER) JAYLEN Dispense one, use daily 1 Eac h 0 trazodone (DESYREL) 50 MG tablet TAKE 1 TO 2 TABLETS BY MOUTH NIGHTLY NEE DED FOR INSOMNIA. 180 Tab 0 No current facility-administered medications on file prior to visit. ALLERGIES Allergies as of 11/19/2019 - Reviewed 11/19/2019 Allergen Reaction Noted Augmentin [amoxicillin-pot clavulanate] 06/30/2018 [...] No PHYSICAL EXAM VS : Blood pressure 100/60, pulse 75, temperature 98.3 F (36.8 C), temperatu re source Oral, height 5' (1.524 m), weight 156 lb 12.8 oz (71.1 kg), SpO2 99 %. Body mass index is 30.62 kg/m. Physical Exam Constitutional: She is oriented to person, place, and time and well-developed, w ell-nourished, and in no distress. No distress. HENT: Head: Normocephalic and atraumatic. Right Ear: External ear normal. Left Ear: External ear normal. Mouth/Throat: Oropharynx is clear and moist. Minimal bilateral nasal turbinate swelling and minimal ETD Eyes: Pupils are equal, round, and reactive to light. Conjunctivae are normal. N o scleral icterus. Neck: Neck supple. Thyromegaly (difficult to palpate but appears to have small b ilateral thyroid nodules) present. Cardiovascular: Normal rate, regular rhythm, normal heart [...] to person, place, and time. Gait normal. Proprioception in bilateral toes is intact Skin: Skin is warm and dry. She is not diaphoretic. Psychiatric: Mood, memory, affect and judgment normal. ADDITIONAL DATA Labs and Xrays were reviewed. Outside medical records including labs and imaging are reviewed and incorporated into HPI, assessment and plan. IMPRESSION AND PLAN Bhupinder was seen today for dizziness. Diagnoses and all orders for this visit: Vertigo Dizziness - AMB REF TO [facility] Type 2 diabetes mellitus with hyperglycemia, with long-term current use of insul in (HCCode) - Increase to Insulin Detemir (LEVEMIR FLEXTOUCH) 100 UNIT/ML SOPN; Inject 30 Units into the skin nightly - dose increase by 2 units every other day until in the 100s Thyroid nodules - ordered US - esophogram for dysphagia Neuropathy Balance issues - B1 and B6 labs given possibility of neuronitis raised by Dr. Melton Stroke work-up at [place] but unclear what was done since we did not have resul ts Risks, benefits, and common side effects of all new medications discussed and [place] given opportunity to ask any questions or concerns. They were answered to patient's satisfaction. RTC in 4 weeks Lynnette Servin MD Internal Medicine [facility] BOATBUILDER APPRENTICE documented in this encounter Plan of Treatment Care Team Description Date Type Specialty Arleth Melton OT [address] [facility] [address] [place] [address] 11/22/2019 Office Visit Audiology Rajinder Mccullough MD [address] [facility] [address] [place] [address] [phone] 11/30/2019 Office Visit Dermatology Ev Richardson MD [address] [facility] [address] [place] [address] [phone] 01/02/2020 Office Visit Sleep Center Miguel Stratton MD [address] [facility] [address]th [place] [address] [phone] 02/01/2020 Confidential Psychiatry Order Schedule Name Type Priority Associated Diag noses 1 Occurrences starting 11/19/2019 until 11/18/2020 THYROID Imaging Routine Multiple thyroi d nodules Ordered: 11/19/2019 VITAMIN B1 Lab Routine Neuropathy Ordered: 11/19/2019 VITAMIN B6 Lab Routine Neuropathy Order Schedule Name Type Priority Associated Diag noses Ordered: 11/19/2019 AMB REF TO [facility] Outpatient Routine Vertigo Referral Dizziness Health Maintenance Due Date Last Done Comments [...] Diagnosis Vertigo - Primary Dizziness and giddiness Dizziness Dizziness and giddiness Type 2 diabetes mellitus with hyperglyc emia, with long-term current use of insulin (HCCode) Multiple thyroid nodules Nontoxic multinodular goiter Neuropathy Mononeuritis of unspecified site documented in this encounter Insurance Type Payer Benefit Subscriber ID Effective Phone Address Plan / Dates Group PPO [facility] [employer] [facility] xxxxxxxxxxx 2019-P [address] resent [id number] ACCESS - [place] [phone] documented as of this encounter
[2020-05-08] MEDS ORDERED: ONDANSETRON HCL INJ 2MG/ML 2ML 2 MG/ML VIAL IV STA (18:31)
[2020-05-08] MEDS ORDERED: SODIUM CHLORIDE 0.9% 500ML 500 ML ONE (18:57)
[2020-05-08] MEDS ORDERED: DEXTROSE 50% SYRINGE 50 ML IV PRN (23:30)
--- NOTE | 2020-05-08 23:50 | NUR ---
Pt admitted to room 299 via stretcher from home. Pt c/o SOB, cough, congestion x1 week with mid chest pain that radiates to the back at home. Pt denies pain or discomfort at this time. Pt alert and oriented to name, hospital, time, and diagnosis: CP, dyspnea on exertion. Pt lungs CTA, RR even and unlabored 20 on RA. Pt Cardiac markers x2 negative. Pt last BM 05/08, denies dysuria. Pt oriented to room, call light within reach, bed low and locked. Pt's goal today is to have ECHO test as ordered.
[2020-05-09] VITALS (7 sets, daily range): BP systolic 105–123; BP diastolic 72–85
[2020-05-09] MEDS ORDERED: LIPITOR20 MG PO (00:58)
[2020-05-09] MEDS ORDERED: NEURONTIN300 MG PO (00:58)
[2020-05-09] MEDS ORDERED: FISH OIL 1,2001 EAC1 PO (00:58)
[2020-05-09] MEDS ORDERED: ATIVAN0.5 MG PO (00:58)
[2020-05-09] MEDS: INSULIN LISPRO 100 UNIT/1 ML 3ML VIAL SQ SCH ×4 (01:32→13:25)
--- NOTE | 2020-05-09 06:50 | NUR ---
SBAR REPORT PROVIDED BY ALPHONSO AVALOS SHIFT RN. PATIENT RECEIVED RESTING IN BED IN NO ACUTE DISTRESS. PT IS ABLE TO MAKE NEEDS KNOWN. PT DENIES NEEDS AT THIS TIME. CALL LIGHT AND BELONGINGS NEARBY. PT WAS EDUCATED ON FALL RISK PRECAUTIONS AND PT VERBALIZED UNDERSTANDING. WILL CONTINUE TO MONITOR.
[2020-05-09] MEDS ORDERED: GLIPIZIDE 5 MG TAB PO SCH (08:00)
[2020-05-09 08:08] LABS: CREATINE KINASE MB 0.4 ng/mL (0-5.0)
[2020-05-09 08:24] LABS: CHOL/HDL RATIO 4.2 (3.0-3.6)
[2020-05-09] MEDS ORDERED: PANTOPRAZOLE SOD 40 MG TABEC PO SCH (09:00)
[2020-05-09] MEDS ORDERED: SITAGLIPTIN 100 MG TAB PO SCH (09:00)
[2020-05-09] MEDS ORDERED: ASPIRIN 325 MG TAB PO SCH (09:00)
[2020-05-09 12:11] LABS: BASOPHILS # (AUTO) 0.1 (0.0-0.1); BASOPHILS % 0.8 % (0.0-1.0); EOSINOPHILS # (AUTO) 0.3 (0.0-0.4); EOSINOPHILS % 3.5 % (0.0-6.0); HEMATOCRIT 44.5 % (34.2-44.1); HEMOGLOBIN 14.5 g/dL (12.0-16.0); LYMPHOCYTES # (AUTO) 1.7 (1.0-3.2); LYMPHOCYTES % 21.8 % (18.0-39.1); MEAN CORPUSCULAR HEMOGLOBIN 29.9 pg (28-32); MEAN CORPUSCULAR HGB CONC 32.6 g/dL (31-35); MEAN CORPUSCULAR VOLUME 91.8 fL (81-99); MONOCYTES # (AUTO) 0.7 (0.2-0.8); MONOCYTES % 9.1 % (4.4-11.3); NEUTROPHILS # (AUTO) 5.1 (2.1-6.9); NEUTROPHILS % 64.4 % (38.7-80.0); PLATELET COUNT 259 x10e3/uL (140-360); RED BLOOD COUNT 4.85 x10e6/uL (3.6-5.1); RED CELL DISTRIBUTION WIDTH 12.9 % (11.7-14.4)
[2020-05-09 12:31] LABS: ALANINE AMINOTRANSFERASE 21 IU/L (0-55); ALBUMIN 3.8 g/dL (3.5-5.0); ALBUMIN/GLOBULIN RATIO 1.3 (0.8-2.0); ALKALINE PHOSPHATASE 59 IU/L (40-150); ANION GAP 13.9 mmol/L (8-16); BLOOD UREA NITROGEN 7 mg/dL (7-26); BUN/CREATININE RATIO 11 (6-25); CALCIUM 9.5 mg/dL (8.4-10.2); CARBON DIOXIDE 25 mmol/L (22-29); CHLORIDE 104 mmol/L (98-107); CREATININE, SERUM 0.61 mg/dL (0.57-1.11); EST GLOMERULAR FILTRATION RATE > 60 ML/MIN (60-); GLUCOSE 137 mg/dL (74-118); POTASSIUM 3.9 mmol/L (3.5-5.1); SODIUM 139 mmol/L (136-145)
[2020-05-09 13:00] LABS: CREATINE KINASE MB 0.5 ng/mL (0-5.0)
--- NOTE | 2020-05-09 17:30 | NUR ---
PATIENT DISCHARGED HOME VIA PRIVATE VEHICLE. PERIPHERAL IV DISCONTINUED, CATHETER TIP INTACT WITHOUT RESISTANCE. PATIENT RECEIVED DISCHARGE SUMMARY AND EDUCATION. PT VERBALIZED UNDERSTANDING.
--- NOTE | 2020-05-09 17:59 | Consultation ---
DATE OF CONSULTATION: 05/09/2020 Cardiology Consultation Thank you so much for asking me to see this nice lady in consultation. 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 CHIEF COMPLAINT: She presents to the emergency room because she has recurring shortness of breath with chest discomfort when she exerts herself. HISTORY OF PRESENT ILLNESS: The patient reports this has been evaluated. She did a stress Cardiolite in August 2019 at [facility] that was reported as negative. She actually had a cardiac catheterization in 2012 that was called normal. She has long-standing diabetes and knows that her hemoglobin A1c is elevated. MEDICATIONS: She takes home medications of glipizide 5 mg daily, sertraline, sitagliptin. PAST SURGICAL HISTORY: She had laparoscopic cholecystectomy in 2018, which was followed by bilateral pulmonary emboli, even though she reports that she began walking on the same day of her surgery. FAMILY HISTORY: Positive for coronary disease. PERSONAL AND SOCIAL HISTORY: She does not smoke. PHYSICAL EXAMINATION: GENERAL: At this time shows an obese white woman, who is alert, responsive. VITAL SIGNS: Blood pressure 122/85, pulse is 80 and regular. HEAD, EYES, EARS, NOSE, AND THROAT: Unremarkable. NECK: Thick. THORAX: Heart sounds S1, S2 are equal. No murmurs. LUNGS: Clear. ABDOMEN: Protuberant. Normal bowel sounds, nontender. EXTREMITIES: No cyanosis, clubbing, or edema. LABORATORY DATA: EKG shows sinus rhythm with low voltages and PAC by geotechnical laboratory technician. Echo report is on the chart, which appears to be unremarkable, not yet interpreted. Hemoglobin A1c is 10.5. Coronavirus PCR is negative. She had CT of the chest here, which does not show any evidence of pulmonary emboli. ASSESSMENT: 1. Possible exertional angina. 2. Possible thrombophilia. 3. Uncontrolled diabetes. PLAN: We will check thrombophilia profile, perform an exercise stress test today with further management based on results of those studies. Thank you for asking me to see her in consultation. MD SHANIKA Blanca/HAYDEN /[id number]
[2020-05-09] MEDS ORDERED: SERTRALINE HCL 100 MG TAB PO SCH (21:00)
--- NOTE | 2020-05-09 23:45 | Discharge Summary ---
CONSULTING PHYSICIAN: Dr. Tigre Solorzano. FINAL DIAGNOSES: 1. Atypical chest pain associated with dyspnea on exertion. Workup is otherwise unremarkable. 2. Uncontrolled diabetes type 2 with glycohemoglobin A1c of 10.5. 3. Dyslipidemia. 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 The patient had DVT in the past. She had COVID-19 PCR, that was negative. She also had a CTA of the chest that was done, that was negative as well. No pulmonary embolism. No cardiac strain. Lungs clear. Lab work otherwise unremarkable. Hemoglobin A1c, however, 10.5 with blood sugar in the 200 to 300. The CBC blood work was unremarkable. Vital signs are stable. Discussed with the patient regarding possible cardiac stress test as an outpatient with Dr. Tigre Solorzano. She agreed. She does not want to wait here on the weekend since today is Tuesday. The patient will go home and resume her home medication. She is going to be more compliant to her insulin treatment and also her oral medication for her diabetes overall. The patient is otherwise stable, discharged home today. MD SERGIO Orozco/MODL /[id number]
--- NOTE | 2020-05-10 13:28 | EXERCISE STRESS TEST ---
DATE OF STUDY: 05/09/2020 11:12:00 Stress Test - Treadmill ONLY FINDINGS: The patient exercised on Don protocol for a total of 8 minutes and 1 second, stopping for fatigue with a maximum heart rate of 130 with her 85% of age predicted maximum 143. There were no ischemic changes, no chest pain, and no arrhythmias. FINAL IMPRESSION: 1. Normal exercise stress test at less than 85% of age predicted maximum. 2. No ischemic changes. 3. No chest pain. 4. No arrhythmias. 5. Normal blood pressure response. MD SHANIKA Blanca/HAYDEN /[id number] cc: Navin Ndiaye MD
== END 2020-05-09 17:05 | disposition home or self-care (01) ==
LOC: FSED 13:14 → ERHOLD 17:23 → MED/SURG3 23:34
PROVIDERS: ADMIT Internal Medicine; ATTEND Internal Medicine
DX: R07.89 Other chest pain (principal); E11.9 Type 2 diabetes mellitus without complications; R06.00 Dyspnea, unspecified; G47.33 Obstructive sleep apnea (adult) (pediatric); I10 Essential (primary) hypertension; E78.5 Hyperlipidemia, unspecified; F41.9 Anxiety disorder, unspecified; Z86.73 Personal history of transient ischemic attack (TIA), and cerebral infarction without residual deficits; Z09 Encounter for follow-up examination after completed treatment for conditions other than malignant neoplasm; Z86.711 Personal history of pulmonary embolism; Z88.1 Allergy status to other antibiotic agents; Z88.2 Allergy status to sulfonamides; Z88.8 Allergy status to other drugs, medicaments and biological substances; Z11.59 Encounter for screening for other viral diseases
CPT/HCPCS: 36415; 71260; 80053 ×2; 80061; 81003; 81025; 81241; 81400; 82550; 82553 ×2; 82948 ×2; 83036; 83880; 84443; 84484 ×2; 85025 ×2; 85303; 85306; 85379; 93005; 93017; 93306; 99284; G0378 ×2; J7040; J7050; Q9967; S0164; U0002; J2405